=== PATIENT | male | born 1965 | race Caucasian/White ===

== ENCOUNTER 2017-02-11 20:28 | Inpatient (IN) | payer OTHER ==
[~2017-02-11] VITALS: Ht 177.8 cm; Wt 77.8 kg
--- NOTE | ~2017-02-11 | EKG ---
[place], [place] ELECTROCARDIOGRAM REPORT NAME: MUNA BOSCH UNIT #: [id number] ROOM: 410 DOCTOR: TAYLOR CHAVEZ MD BIRTHDATE: [birth year] DOS: 02/11/2017 TIME: 2118 hours. FINDINGS: 1. Normal sinus rhythm at rate 78. 2. Nonspecific T-wave abnormalities in the inferior leads. 3. Otherwise normal EKG. TAYLOR CHAVEZ MD CM:EKGRPT:ELECTROCARDIOGRAM REPORT [id number] TAYLOR CHAVEZ MD
--- NOTE | ~2017-02-11 | EKG ---
[place], [place] ELECTROCARDIOGRAM REPORT NAME: MUNA BOSCH UNIT #: [id number] ROOM: 410 DOCTOR: TAYLOR CHAVEZ MD BIRTHDATE: [birth year] DOS: 02/13/2017 TIME: 08:40. Sinus bradycardia with rate of 52. Low voltage in limb leads, otherwise normal ____. TAYLOR CHAVEZ MD CM:EKGRPT:ELECTROCARDIOGRAM REPORT [id number] TAYLOR CHAVEZ MD
[~2017-02-11 20:28] MED LIST: AMILORIDE HCL5 MG PO; ASPIRIN ADULT L81 M1 PO; ASPIRIN E.C.325 MG PO; ASPIRIN EC325 MG PO; ATIVAN1 MG PO; B-1100 MG PO; CARAFATE1 G1 PO; CARDIZEM30 MG PO; CENA K20 MEQ/15 PO; CETACAINE PO; Clotrimazole Tr10 MG PO; DIGOXIN0.125 MG PO; FLEXERIL10 MG PO; FLUVOXAMINE100 MG PO; FOLIC ACID1 MG PO; HYDROXYZINE HCL25 M1 PO; IRON325 M2 PO; K-Dur 20MEQ20 MEQ PO; KEFLEX500 MG PO; KENALOG0.1% PO; KENALOG0.1% TP; LANOXIN0.125 MG PO; LIQUID MAGNESI400 MG PO; LOPRESSOR100 MG PO; LOPRESSOR25 MG PO; MAG-OX 400400 MG PO; MAGNESIUM OXID400 MG PO; MS CONTIN30 MG PO; MULTIPLE VITAMI1 CAP PO; MYCELEX TROCHE10 MG PO; NATURE'S BLEND F1 MG PO; NKHM; OMEPRAZOLE; OMNICEF300 MG PO; PEPCID AC20 MG PO; PERCOCET 325 MG1 TA6 PO; PERCOCET 325 MG1 TAB PO; PRILOSEC20 MG PO; SERTRALINE HCL100 MG PO; SERTRALINE50 MG PO; SYNTHROID,LEV100 MCG PO; SYNTHROID,LEV112 MCG PO; SYNTHROID,LEV125 MCG PO; SYNTHROID0.025 MG PO; THIAMINE HCL100 MG PO; VALIUM10 MG PO; VICODIN 5/500 505 MG PO; VISTARIL25 MG PO; VISTARIL50 MG PO; VITAMIN B1100 MCG/ML IM; VITAMIN B121000 MC1 PO; VOLTAREN50 M1 PO; XANAX0.25 MG PO; XANAX0.5 MG PO; XANAX1 MG PO; XARE15TA PO; XARE20MG PO; XYLOCAINE PO; ZANTAC 300300 MG PO; ZANTAC150 MG PO; [UNRECOGNIZED DRUG - OTHER] PO
[2017-02-11 20:33] LABS: BASO % 0.7 % (0.0-1.0); EOS # 0.3 10*3/uL (0.0-0.4); EOS % 5.3 % (1.0-4.0); HEMATOCRIT 42.7 % (42.0-52.0); HEMOGLOBIN 15.3 g/dl (14.0-18.0); IG # 0.1 10*3/uL (0.0-0.1); LYMPH # 0.9 10*3/uL (1.3-4.4); LYMPH % 15.4 % (27.0-41.0); MEAN CELL VOLUME 102.2 fl (80.0-94.0); MEAN CORPUSCULAR HGB 36.6 pg (27.0-31.0); MEAN CORPUSCULAR HGB CONC 35.8 g/dl (33.0-37.0); MEAN PLATELET VOLUME 10.5 fl (9.6-12.3); MONO # 0.8 10*3/uL (0.1-1.0); MONO % 12.5 % (3.0-9.0); NEUT % 65.1 % (47.0-73.0); PLATELET COUNT AUTOMATED 202 10*3/uL (130-400); RED BLOOD COUNT 4.18 10*6/uL (4.50-5.90); RED CELL DISTRI WIDTH 12.9 % (0-14.5); WHITE BLOOD COUNT 6.1 10*3/uL (4.8-10.8)
[2017-02-11 20:34] VITALS: BP 128/89
[2017-02-11 20:49] LABS: ALBUMIN 3.6 gm/dl (3.1-4.5); ALKALINE PHOSPHATASE 94 U/L (45-117); BILIRUBIN, TOTAL 0.2 mg/dl (0.2-1.0); BUN 6 mg/dl (7-24); CARBON DIOXIDE 26 mmol/L (21-32); CHLORIDE 107 mmol/L (98-107); EST GLOM FILT AFRICAN AMERICAN > 60 ml/min; GLUCOSE 116 mg/dL (65-99); SGOT/AST 33 IU/L (3-35); SGPT/ALT 29 U/L (12-78); SODIUM 141 mmol/L (136-145); TOTAL PROTEIN 7.9 gm/dL (6.4-8.2)
[2017-02-11 21:16] LABS: BASO # 0.1 10*3/uL (0.0-0.1); BASO % 0.8 % (0.0-1.0); EOS # 0.4 10*3/uL (0.0-0.4); EOS % 5.4 % (1.0-4.0); HEMATOCRIT 42.7 % (42.0-52.0); HEMOGLOBIN 15.4 g/dl (14.0-18.0); IG # 0.1 10*3/uL (0.0-0.1); LYMPH # 0.8 10*3/uL (1.3-4.4); LYMPH % 12.2 % (27.0-41.0); MEAN CELL VOLUME 101.7 fl (80.0-94.0); MEAN CORPUSCULAR HGB 36.7 pg (27.0-31.0); MEAN CORPUSCULAR HGB CONC 36.1 g/dl (33.0-37.0); MEAN PLATELET VOLUME 10.4 fl (9.6-12.3); MONO # 0.9 10*3/uL (0.1-1.0); MONO % 14.5 % (3.0-9.0); NEUT # 4.3 10*3/uL (2.3-7.9); PLATELET COUNT AUTOMATED 197 10*3/uL (130-400); WHITE BLOOD COUNT 6.5 10*3/uL (4.8-10.8)
[2017-02-11 21:24] LABS: PROTHROMBIN TIME 10.9 SECONDS (9.0-12.4)
[2017-02-11 21:31] LABS: ALBUMIN 3.7 gm/dl (3.1-4.5); ALKALINE PHOSPHATASE 100 U/L (45-117); BILIRUBIN, TOTAL 0.2 mg/dl (0.2-1.0); BUN 6 mg/dl (7-24); C-REACTIVE PROTEIN 0.45 MG/DL (0-0.3); CARBON DIOXIDE 24 mmol/L (21-32); CHLORIDE 108 mmol/L (98-107); EST GLOM FILT AFRICAN AMERICAN > 60 ml/min; GLUCOSE 89 mg/dL (65-99); MAGNESIUM 1.5 mg/dL (1.5-2.1); POTASSIUM 3.1 mmol/L (3.5-5.1); SGOT/AST 35 IU/L (3-35); SGPT/ALT 29 U/L (12-78); SODIUM 141 mmol/L (136-145)
[2017-02-11 21:34] LABS: TROPONIN I < 0.015 ng/ml (<0.045)
[2017-02-11 22:44] VITALS: BP 122/70
[2017-02-11 22:45] VITALS: BP 122/70
[2017-02-12] VITALS: BP 96/63
[2017-02-12 04:00] VITALS: BP 128/86
[2017-02-12 06:26] LABS: CKMB 1.7 ng/ml (0.5-3.6); CPK 123 U/L (39-308); TROPONIN I < 0.015 ng/ml (<0.045)
[2017-02-12 06:40] LABS: FREE T4 0.48 ng/dl (0.76-1.46)
[2017-02-12 06:49] LABS: THYROID STIM HORMONE (HS) 32.1 uIU/ml (0.358-4.75)
[2017-02-12 06:52] LABS: PROTHROMBIN TIME 10.9 SECONDS (9.0-12.4)
[2017-02-12 07:00] LABS: HEMOGLOBIN A1c 4.9 % (4.8-5.6)
[2017-02-12 08:00] VITALS: BP 134/79
[2017-02-12 09:39] LABS: BILIRUBIN NEGATIVE (NEGATIVE); BLOOD NEGATIVE (NEGATIVE); CLARITY CLEAR (CLEAR); COLOR YELLOW (YELLOW); GLUCOSE NEGATIVE (NEGATIVE); KETONE NEGATIVE (NEGATIVE); LEUKO ESTERASE NEGATIVE (NEGATIVE); NITRITE NEGATIVE (NEGATIVE); PROTEIN NEGATIVE (NEGATIVE); SPECIFIC GRAVITY 1.015 (1.005-1.030); UROBILINOGEN 0.2 E.U./dl (0.2-1.0)
[2017-02-12 09:51] LABS: WBC 0-2 wbc/hpf (0-5)
[2017-02-12 09:52] LABS: EPITHELIAL CELLS 0-2; URINE REFLEX COMMENT NO (NO)
[2017-02-12 12:00] VITALS: BP 120/72
[2017-02-12 12:27] LABS: CKMB 1.7 ng/ml (0.5-3.6); CPK 110 U/L (39-308)
[2017-02-12 12:28] LABS: TROPONIN I < 0.015 ng/ml (<0.045)
[2017-02-12 16:00] VITALS: BP 136/79
[2017-02-12 18:33] LABS: CKMB 1.5 ng/ml (0.5-3.6); CPK 99 U/L (39-308)
[2017-02-12 18:38] LABS: TROPONIN I < 0.015 ng/ml (<0.045)
[2017-02-12 20:00] VITALS: BP 114/86; BP 135/80
[2017-02-13] VITALS: BP 134/78
[2017-02-13 04:00] VITALS: BP 135/78
[2017-02-13 05:50] LABS: BASO # 0.1 10*3/uL (0.0-0.1); BASO % 1.3 % (0.0-1.0); EOS # 0.2 10*3/uL (0.0-0.4); EOS % 5.8 % (1.0-4.0); LYMPH # 0.5 10*3/uL (1.3-4.4); LYMPH % 12.3 % (27.0-41.0); MEAN CELL VOLUME 103.8 fl (80.0-94.0); MEAN CORPUSCULAR HGB 36.8 pg (27.0-31.0); MEAN CORPUSCULAR HGB CONC 35.4 g/dl (33.0-37.0); MEAN PLATELET VOLUME 10.7 fl (9.6-12.3); MONO # 0.7 10*3/uL (0.1-1.0); MONO % 16.3 % (3.0-9.0); NEUT # 2.5 10*3/uL (2.3-7.9); NEUT % 63.5 % (47.0-73.0); PLATELET COUNT AUTOMATED 149 10*3/uL (130-400); RED CELL DISTRI WIDTH 13.2 % (0-14.5)
[2017-02-13 05:55] LABS: HEMATOCRIT 35.3 % (42.0-52.0); HEMOGLOBIN 12.5 g/dl (14.0-18.0)
[2017-02-13 06:15] LABS: ALBUMIN 2.6 gm/dl (3.1-4.5); ALKALINE PHOSPHATASE 68 U/L (45-117); BILIRUBIN, TOTAL 0.3 mg/dl (0.2-1.0); BUN 10 mg/dl (7-24); CARBON DIOXIDE 23 mmol/L (21-32); CHLORIDE 111 mmol/L (98-107); CHOLESTEROL 119 mg/dL (<200); EST GLOM FILT AFRICAN AMERICAN > 60 ml/min; FREE T4 0.58 ng/dl (0.76-1.46); GLUCOSE 87 mg/dL (65-99); HDL CHOLESTEROL 80 mg/dl (40-60); LDL CHOLESTEROL 34 mg/dL (9-159); MAGNESIUM 1.1 mg/dL (1.5-2.1); PHOSPHOROUS 2.4 mg/dL (2.5-4.9); POTASSIUM 3.1 mmol/L (3.5-5.1); SGOT/AST 20 IU/L (3-35); SGPT/ALT 16 U/L (12-78); SODIUM 144 mmol/L (136-145); TRIGLYCERIDES 27 mg/dl (<150); VLDL CHOLESTEROL 5 mg/dL (6-40)
[2017-02-13 07:16] LABS: FOLIC ACID 2.52 ng/mL (>5.38); VITAMIN D, 25-HYDROXY 53.3 ng/mL (30-100)
[2017-02-13 08:00] VITALS: BP 152/87
[2017-02-13 12:00] VITALS: BP 143/86
[2017-02-13 16:00] VITALS: BP 121/77
[2017-02-13 20:00] VITALS: BP 150/89
[2017-02-14 06:10] LABS: BUN 10 mg/dl (7-24); CARBON DIOXIDE 24 mmol/L (21-32); CHLORIDE 110 mmol/L (98-107); EST GLOM FILT AFRICAN AMERICAN > 60 ml/min; GLUCOSE 113 mg/dL (65-99); MAGNESIUM 1.1 mg/dL (1.5-2.1); PHOSPHOROUS 2.9 mg/dL (2.5-4.9); POTASSIUM 3.5 mmol/L (3.5-5.1); SODIUM 141 mmol/L (136-145)
[2017-02-14 06:49] LABS: BASO % 0.7 % (0.0-1.0); EOS # 0.2 10*3/uL (0.0-0.4); EOS % 5.3 % (1.0-4.0); HEMOGLOBIN 12.4 g/dl (14.0-18.0); LYMPH # 0.6 10*3/uL (1.3-4.4); LYMPH % 13.5 % (27.0-41.0); MEAN CELL VOLUME 103.6 fl (80.0-94.0); MEAN CORPUSCULAR HGB 36.7 pg (27.0-31.0); MEAN CORPUSCULAR HGB CONC 35.4 g/dl (33.0-37.0); MEAN PLATELET VOLUME 11.2 fl (9.6-12.3); MONO # 0.6 10*3/uL (0.1-1.0); MONO % 14.2 % (3.0-9.0); NEUT # 2.9 10*3/uL (2.3-7.9); NEUT % 65.6 % (47.0-73.0); PLATELET COUNT AUTOMATED 147 10*3/uL (130-400); RED BLOOD COUNT 3.38 10*6/uL (4.50-5.90); RED CELL DISTRI WIDTH 13.3 % (0-14.5); WHITE BLOOD COUNT 4.4 10*3/uL (4.8-10.8)
[2017-02-14 08:00] VITALS: BP 167/96
[2017-02-14] MEDS ORDERED: LIBRIUM5 MG PO (09:51)
[2017-02-14] MEDS ORDERED: METRONIDAZOLE500 M1 PO (09:51)
== END 2017-02-14 10:58 | disposition home or self-care (01) | DRG 371 ==
LOC: EDSTATUS 20:28 → ED 20:29 → 4E 22:21 → EDHOLD 22:21 → 4E 22:32
PROVIDERS: Emergency Medicine Emergency Medical Services; Family Medicine; Internal Medicine; Student in an Organized Health Care Education/Training Program
DX: A04.9 Bacterial intestinal infection, unspecified (principal); E43 Unspecified severe protein-calorie malnutrition; K76.0 Fatty (change of) liver, not elsewhere classified; I48.91 Unspecified atrial fibrillation; E83.39 Other disorders of phosphorus metabolism; R55 Syncope and collapse; I10 Essential (primary) hypertension; F10.129 Alcohol abuse with intoxication, unspecified; E03.9 Hypothyroidism, unspecified; E87.6 Hypokalemia; D72.810 Lymphocytopenia; F17.200 Nicotine dependence, unspecified, uncomplicated; E86.0 Dehydration; D53.9 Nutritional anemia, unspecified; K52.9 Noninfective gastroenteritis and colitis, unspecified; Z84.89 Family history of other specified conditions; Z79.899 Other long term (current) drug therapy; Z68.24 Body mass index [BMI] 24.0-24.9, adult

== ENCOUNTER → 2017-06-20 | Outpatient (CLI) | payer OTHER ==
[~2017-06-20] MED LIST changes: +LIBRIUM5 MG PO; +METRONIDAZOLE500 M1 PO
[2017-06-20 08:10] LABS: HEMATOCRIT 44.5 % (42.0-52.0); HEMOGLOBIN 15.6 g/dl (14.0-18.0); MEAN CELL VOLUME 109.6 fl (80.0-94.0); MEAN CORPUSCULAR HGB 38.4 pg (27.0-31.0); MEAN CORPUSCULAR HGB CONC 35.1 g/dl (33.0-37.0); MEAN PLATELET VOLUME 10.7 fl (9.6-12.3); PLATELET COUNT AUTOMATED 197 10*3/uL (130-400); RED BLOOD COUNT 4.06 10*6/uL (4.50-5.90); RED CELL DISTRI WIDTH 14.4 % (0-14.5); WHITE BLOOD COUNT 4.7 10*3/uL (4.8-10.8)
[2017-06-20 08:41] LABS: ALBUMIN 3.8 gm/dl (3.1-4.5); ALKALINE PHOSPHATASE 81 U/L (45-117); BUN 10 mg/dl (7-24); CHLORIDE 103 mmol/L (98-107); CHOLESTEROL 188 mg/dL (<200); GAMMA GLUTAMYL TRANSPEPTIDASE 33 U/L (15-85); HDL CHOLESTEROL 88 mg/dl (40-60); LDL CHOLESTEROL 85 mg/dL (9-159); MAGNESIUM 1.4 mg/dL (1.5-2.1); POTASSIUM 3.8 mmol/L (3.5-5.1); SGOT/AST 19 IU/L (3-35); SGPT/ALT 20 U/L (12-78); SODIUM 139 mmol/L (136-145); TOTAL PROTEIN 8.4 gm/dL (6.4-8.2); TRIGLYCERIDES 74 mg/dl (<150); VLDL CHOLESTEROL 15 mg/dL (6-40)
[2017-06-20 08:59] LABS: PLATELET SUFFICIENCY NORMAL (NORMAL); TOTAL CELLS COUNTED 100 #CELLS
== END | disposition home or self-care (01) ==
LOC: LAB 07:45
PROVIDERS: Family Medicine
DX: Z12.5 Encounter for screening for malignant neoplasm of prostate (principal); E03.9 Hypothyroidism, unspecified; F10.99 Alcohol use, unspecified with unspecified alcohol-induced disorder; Z72.0 Tobacco use; Z85.49 Personal history of malignant neoplasm of other male genital organs

== ENCOUNTER → 2017-09-21 | Outpatient (CLI) | payer OTHER | END | disposition home or self-care (01) | LOC: LAB 13:09 | DX: E03.9 Hypothyroidism, unspecified (principal) ==

== ENCOUNTER → 2017-11-21 | Outpatient (CLI) | payer OTHER | END | disposition home or self-care (01) | LOC: LAB 11:39 | DX: E03.9 Hypothyroidism, unspecified (principal) ==

== ENCOUNTER 2017-12-30 00:15 | Inpatient (IN) | payer OTHER ==
[2017-12-30] VITALS (7 sets, daily range): BP systolic 107–156; BP diastolic 51–89
[~2017-12-30] VITALS: Ht 176.5 cm; Wt 77.6 kg
[2017-12-30 00:38] LABS: BASO # 0.1 10*3/uL (0.0-0.1); BASO % 1.1 % (0.0-1.0); EOS # 0.3 10*3/uL (0.0-0.4); EOS % 7.3 % (1.0-4.0); HEMATOCRIT 37.3 % (42.0-52.0); HEMOGLOBIN 13.1 g/dl (14.0-18.0); LYMPH # 1.4 10*3/uL (1.3-4.4); LYMPH % 30.5 % (27.0-41.0); MEAN CELL VOLUME 104.2 fl (80.0-94.0); MEAN CORPUSCULAR HGB 36.6 pg (27.0-31.0); MEAN CORPUSCULAR HGB CONC 35.1 g/dl (33.0-37.0); MEAN PLATELET VOLUME 9.9 fl (9.6-12.3); MONO # 0.7 10*3/uL (0.1-1.0); MONO % 15.8 % (3.0-9.0); NEUT % 44.6 % (47.0-73.0); PLATELET COUNT AUTOMATED 180 10*3/uL (130-400); RED BLOOD COUNT 3.58 10*6/uL (4.50-5.90); RED CELL DISTRI WIDTH 13.3 % (0-14.5); WHITE BLOOD COUNT 4.5 10*3/uL (4.8-10.8)
[2017-12-30 00:53] LABS: ACT PARTIAL THROMBO TIME 26.5 SECONDS (20.8-31.5); INTERNATIONAL NORM RATIO 0.9 (2.0-3.5)
[2017-12-30 01:02] LABS: ALBUMIN 3.8 gm/dl (3.1-4.5); ALKALINE PHOSPHATASE 74 U/L (45-117); CHLORIDE 104 mmol/L (98-107); CREATININE 1.01 mg/dL (0.70-1.30); POTASSIUM 4.8 mmol/L (3.5-5.1); SGPT/ALT 21 U/L (12-78); SODIUM 140 mmol/L (136-145); TOTAL PROTEIN 7.8 gm/dL (6.4-8.2)
[2017-12-30 01:24] LABS: BUN 11 mg/dl (7-24); SGOT/AST 29 IU/L (3-35); TROPONIN I < 0.015 ng/ml (<0.045)
[2017-12-30 01:25] LABS: URINE AMPHETAMINES < 1000 (1000ng/ml); URINE BARBITURATES < 200 (200ng/ml); URINE BENZODIAZEPINES < 200 (200ng/ml); URINE CANNABINOIDS (THC) < 50 (50ng/ml); URINE COCAINE < 300 (300ng/ml); URINE METHADONE < 300 (300ng/ml); URINE OPIATES < 300 (300ng/ml)
[2017-12-30 01:28] LABS: URINE PHENCYCLIDINE < 25 (25ng/ml)
[2017-12-30 01:30] LABS: BILIRUBIN NEGATIVE (NEGATIVE); BLOOD NEGATIVE (NEGATIVE); CLARITY CLEAR (CLEAR); COLOR YELLOW (YELLOW); GLUCOSE NEGATIVE (NEGATIVE); KETONE NEGATIVE (NEGATIVE); LEUKO ESTERASE NEGATIVE (NEGATIVE); NITRITE NEGATIVE (NEGATIVE); UROBILINOGEN 0.2 E.U./dl (0.2-1.0)
[2017-12-30 01:35] LABS: WBC 0-2 wbc/hpf (0-5)
[2017-12-30] MEDS ORDERED: LEVOTHYROXINE200 MC2 PO (01:46)
[2017-12-30 06:10] LABS: EOS # 0.2 10*3/uL (0.0-0.4); HEMATOCRIT 34.3 % (42.0-52.0); HEMOGLOBIN 12.3 g/dl (14.0-18.0); LYMPH # 0.9 10*3/uL (1.3-4.4); LYMPH % 30.3 % (27.0-41.0); MEAN CELL VOLUME 103.9 fl (80.0-94.0); MEAN CORPUSCULAR HGB 37.3 pg (27.0-31.0); MEAN CORPUSCULAR HGB CONC 35.9 g/dl (33.0-37.0); MEAN PLATELET VOLUME 9.6 fl (9.6-12.3); MONO # 0.4 10*3/uL (0.1-1.0); MONO % 12.3 % (3.0-9.0); NEUT # 1.4 10*3/uL (2.3-7.9); NEUT % 47.7 % (47.0-73.0); PLATELET COUNT AUTOMATED 144 10*3/uL (130-400); RED CELL DISTRI WIDTH 13.3 % (0-14.5)
[2017-12-30 06:42] LABS: ACT PARTIAL THROMBO TIME 26.9 SECONDS (20.8-31.5); ALBUMIN 3.2 gm/dl (3.1-4.5); ALKALINE PHOSPHATASE 62 U/L (45-117); BUN 11 mg/dl (7-24); CHLORIDE 107 mmol/L (98-107); CHOLESTEROL 150 mg/dL (<200); CREATININE 0.99 mg/dL (0.70-1.30); FREE T4 0.84 ng/dl (0.76-1.46); HDL CHOLESTEROL 88 mg/dl (40-60); LDL CHOLESTEROL 54 mg/dL (9-159); PHOSPHOROUS 3.9 mg/dL (2.5-4.9); SGOT/AST 24 IU/L (3-35); SGPT/ALT 18 U/L (12-78); SODIUM 143 mmol/L (136-145); TOTAL PROTEIN 6.8 gm/dL (6.4-8.2); TRIGLYCERIDES 41 mg/dl (<150); VLDL CHOLESTEROL 8 mg/dL (6-40)
[2017-12-30 06:56] LABS: POTASSIUM 3.8 mmol/L (3.5-5.1)
[2017-12-30 06:57] LABS: THYROID STIM HORMONE (HS) 0.667 uIU/ml (0.358-4.75)
[2017-12-30 07:55] LABS: VITAMIN D, 25-HYDROXY 23.7 ng/mL (30-100)
[2017-12-30] MEDS ORDERED: LEXAPRO20 MG PO (10:23)
[2017-12-30] MEDS ORDERED: BUSPAR5 MG PO (10:25)
[2017-12-31] VITALS: BP 168/80
[2017-12-31 04:00] VITALS: BP 158/66
[2017-12-31 06:23] LABS: BASO % 0.1 % (0.0-1.0); LYMPH # 0.3 10*3/uL (1.3-4.4); LYMPH % 4.4 % (27.0-41.0); MEAN CELL VOLUME 101.2 fl (80.0-94.0); MEAN CORPUSCULAR HGB 36.6 pg (27.0-31.0); MEAN CORPUSCULAR HGB CONC 36.2 g/dl (33.0-37.0); MEAN PLATELET VOLUME 11.1 fl (9.6-12.3); MONO # 0.4 10*3/uL (0.1-1.0); MONO % 5.2 % (3.0-9.0); NEUT # 6.8 10*3/uL (2.3-7.9); NEUT % 89.6 % (47.0-73.0); PLATELET COUNT AUTOMATED 165 10*3/uL (130-400); RED BLOOD COUNT 4.32 10*6/uL (4.50-5.90); WHITE BLOOD COUNT 7.6 10*3/uL (4.8-10.8)
[2017-12-31 06:26] LABS: HEMATOCRIT 43.7 % (42.0-52.0)
[2017-12-31 06:27] LABS: HEMOGLOBIN 15.8 g/dl (14.0-18.0)
[2017-12-31 08:00] VITALS: BP 152/82
[2017-12-31 12:00] VITALS: BP 134/84
[2017-12-31 16:00] VITALS: BP 117/81
[2017-12-31] MEDS ORDERED: PREDNISONE10 MG PO (17:05)
[2017-12-31] MEDS ORDERED: LEVAQUIN500 M2 PO (17:05)
[2017-12-31] MEDS ORDERED: NATURE'S BLEND F1 MG PO (17:05)
[2017-12-31] MEDS ORDERED: VITAMIN D-32000 UNIT PO (17:05)
== END 2017-12-31 17:24 | disposition home or self-care (01) | DRG 190 ==
LOC: ED 00:15 → EDHOLD 01:38 → 5E 01:38
PROVIDERS: Emergency Medicine Emergency Medical Services; Family Medicine
PROC: 4A02XM4 Measurement of Cardiac Total Activity, External Approach (ICD-10-PCS; principal; 2017-12-31)
PROC: 3E073KZ Introduction of Other Diagnostic Substance into Coronary Artery, Percutaneous Approach (ICD-10-PCS; 2017-12-31)
DX: J44.1 Chronic obstructive pulmonary disease with (acute) exacerbation (principal); J18.9 Pneumonia, unspecified organism; C14.0 Malignant neoplasm of pharynx, unspecified; I48.0 Paroxysmal atrial fibrillation; E44.1 Mild protein-calorie malnutrition; K76.0 Fatty (change of) liver, not elsewhere classified; D72.810 Lymphocytopenia; D53.9 Nutritional anemia, unspecified; E03.9 Hypothyroidism, unspecified; F17.210 Nicotine dependence, cigarettes, uncomplicated; R07.89 Other chest pain; I25.118 Atherosclerotic heart disease of native coronary artery with other forms of angina pectoris; E53.8 Deficiency of other specified B group vitamins; E55.9 Vitamin D deficiency, unspecified; F32.9 Major depressive disorder, single episode, unspecified; I10 Essential (primary) hypertension; Z83.3 Family history of diabetes mellitus; Z82.49 Family history of ischemic heart disease and other diseases of the circulatory system; Z71.6 Tobacco abuse counseling; Z87.81 Personal history of (healed) traumatic fracture; Z68.24 Body mass index [BMI] 24.0-24.9, adult; J44.0 Chronic obstructive pulmonary disease with (acute) lower respiratory infection; F10.129 Alcohol abuse with intoxication, unspecified

== ENCOUNTER 2018-01-25 21:46 | Inpatient (IN) | payer OTHER ==
[~2018-01-25] VITALS: Ht 177.8 cm; Wt 79.1 kg
[~2018-01-25 21:46] MED LIST changes: +BUSPAR5 MG PO; +LEVAQUIN500 M2 PO; +LEVOTHYROXINE200 MC2 PO; +LEXAPRO20 MG PO; +PREDNISONE10 MG PO; +VITAMIN D-32000 UNIT PO
[2018-01-25 21:50] VITALS: BP 160/110
[2018-01-25 22:19] LABS: BASO # 0.1 10*3/uL (0.0-0.1); BASO % 0.8 % (0.0-1.0); EOS # 0.2 10*3/uL (0.0-0.4); EOS % 3.7 % (1.0-4.0); HEMATOCRIT 40.8 % (42.0-52.0); LYMPH % 15.6 % (27.0-41.0); MEAN CELL VOLUME 106.5 fl (80.0-94.0); MEAN CORPUSCULAR HGB 36.6 pg (27.0-31.0); MEAN CORPUSCULAR HGB CONC 34.3 g/dl (33.0-37.0); MEAN PLATELET VOLUME 10.4 fl (9.6-12.3); MONO # 0.5 10*3/uL (0.1-1.0); NEUT # 4.4 10*3/uL (2.3-7.9); NEUT % 71.3 % (47.0-73.0); PLATELET COUNT AUTOMATED 141 10*3/uL (130-400); RED BLOOD COUNT 3.83 10*6/uL (4.50-5.90); RED CELL DISTRI WIDTH 14.5 % (0-14.5); WHITE BLOOD COUNT 6.2 10*3/uL (4.8-10.8)
[2018-01-25 22:33] LABS: ALBUMIN 4.2 gm/dl (3.1-4.5); ALKALINE PHOSPHATASE 65 U/L (45-117); BUN 5 mg/dl (7-24); CHLORIDE 98 mmol/L (98-107); CREATININE 0.84 mg/dL (0.70-1.30); SGOT/AST 51 IU/L (3-35); SGPT/ALT 35 U/L (12-78); SODIUM 134 mmol/L (136-145); TOTAL PROTEIN 7.9 gm/dL (6.4-8.2)
[2018-01-25 22:34] LABS: BILIRUBIN NEGATIVE (NEGATIVE); BLOOD NEGATIVE (NEGATIVE); CLARITY CLEAR (CLEAR); COLOR YELLOW (YELLOW); GLUCOSE NEGATIVE (NEGATIVE); KETONE NEGATIVE (NEGATIVE); LEUKO ESTERASE NEGATIVE (NEGATIVE); NITRITE NEGATIVE (NEGATIVE); SPECIFIC GRAVITY <= 1.005 (1.005-1.030); UROBILINOGEN 0.2 E.U./dl (0.2-1.0)
[2018-01-25 22:35] LABS: ACETAMINOPHEN (TYLENOL) < 2.0 ug/ml (10-30)
[2018-01-25 22:44] LABS: URINE AMPHETAMINES < 1000 (1000ng/ml); URINE BARBITURATES < 200 (200ng/ml); URINE BENZODIAZEPINES < 200 (200ng/ml); URINE CANNABINOIDS (THC) < 50 (50ng/ml); URINE COCAINE < 300 (300ng/ml); URINE METHADONE < 300 (300ng/ml); URINE OPIATES < 300 (300ng/ml); URINE PHENCYCLIDINE < 25 (25ng/ml)
[2018-01-25 23:00] LABS: BACTERIA TRACE; WBC 0-2 wbc/hpf (0-5)
[2018-01-25 23:29] VITALS: BP 118/62
[2018-01-26] VITALS (7 sets, daily range): BP systolic 105–148; BP diastolic 69–89
[2018-01-26 04:32] LABS: BASO % 0.7 % (0.0-1.0); EOS # 0.2 10*3/uL (0.0-0.4); EOS % 5.4 % (1.0-4.0); HEMATOCRIT 35.7 % (42.0-52.0); HEMOGLOBIN 12.2 g/dl (14.0-18.0); LYMPH # 0.9 10*3/uL (1.3-4.4); MEAN CELL VOLUME 106.9 fl (80.0-94.0); MEAN CORPUSCULAR HGB 36.5 pg (27.0-31.0); MEAN CORPUSCULAR HGB CONC 34.2 g/dl (33.0-37.0); MEAN PLATELET VOLUME 10.5 fl (9.6-12.3); MONO # 0.5 10*3/uL (0.1-1.0); MONO % 12.1 % (3.0-9.0); NEUT # 2.5 10*3/uL (2.3-7.9); NEUT % 59.3 % (47.0-73.0); PLATELET COUNT AUTOMATED 118 10*3/uL (130-400); RED BLOOD COUNT 3.34 10*6/uL (4.50-5.90); RED CELL DISTRI WIDTH 14.4 % (0-14.5); WHITE BLOOD COUNT 4.3 10*3/uL (4.8-10.8)
[2018-01-26 04:33] LABS: ACT PARTIAL THROMBO TIME 26.9 SECONDS (20.8-31.5)
[2018-01-26 04:42] LABS: ALBUMIN 3.2 gm/dl (3.1-4.5); ALKALINE PHOSPHATASE 49 U/L (45-117); BUN 9 mg/dl (7-24); CHLORIDE 103 mmol/L (98-107); CREATININE 1.03 mg/dL (0.70-1.30); PHOSPHOROUS 3.8 mg/dL (2.5-4.9); POTASSIUM 3.6 mmol/L (3.5-5.1); SGOT/AST 35 IU/L (3-35); SGPT/ALT 25 U/L (12-78); SODIUM 140 mmol/L (136-145); TOTAL PROTEIN 6.1 gm/dL (6.4-8.2)
[2018-01-26 05:38] LABS: VITAMIN D, 25-HYDROXY 33.9 ng/mL (30-100)
[2018-01-27] VITALS: BP 138/80
[2018-01-27 04:55] LABS: HEMATOCRIT 38.8 % (42.0-52.0); MEAN CELL VOLUME 109.3 fl (80.0-94.0); MEAN CORPUSCULAR HGB 36.6 pg (27.0-31.0); MEAN CORPUSCULAR HGB CONC 33.5 g/dl (33.0-37.0); MEAN PLATELET VOLUME 10.8 fl (9.6-12.3); PLATELET COUNT AUTOMATED 99 10*3/uL (130-400); RED BLOOD COUNT 3.55 10*6/uL (4.50-5.90); RED CELL DISTRI WIDTH 14.5 % (0-14.5); WHITE BLOOD COUNT 4.8 10*3/uL (4.8-10.8)
[2018-01-27 05:13] LABS: ALBUMIN 3.1 gm/dl (3.1-4.5); ALKALINE PHOSPHATASE 52 U/L (45-117); BUN 14 mg/dl (7-24); CHLORIDE 103 mmol/L (98-107); CREATININE 0.96 mg/dL (0.70-1.30); POTASSIUM 3.9 mmol/L (3.5-5.1); SGOT/AST 27 IU/L (3-35); SGPT/ALT 24 U/L (12-78); SODIUM 140 mmol/L (136-145); TOTAL PROTEIN 6.3 gm/dL (6.4-8.2)
[2018-01-27 05:21] LABS: BASOPHILS 1 % (0-1); PLATELET SUFFICIENCY LOW (NORMAL); TOTAL CELLS COUNTED 100 #CELLS
[2018-01-27 08:00] VITALS: BP 170/86
[2018-01-27 08:28] LABS: FREE T4 0.87 ng/dl (0.76-1.46); THYROID STIM HORMONE (HS) 10.3 uIU/ml (0.358-4.75)
[2018-01-27] MEDS ORDERED: NATURE'S BLEND100 M2 PO (10:47)
== END 2018-01-27 10:58 | disposition home or self-care (01) | DRG 897 ==
LOC: ED 21:46 → EDHOLD 23:44 → ICCU 23:51
PROVIDERS: Emergency Medicine Emergency Medical Services; Internal Medicine
DX: F10.129 Alcohol abuse with intoxication, unspecified (principal); D69.6 Thrombocytopenia, unspecified; K76.0 Fatty (change of) liver, not elsewhere classified; E87.1 Hypo-osmolality and hyponatremia; I48.91 Unspecified atrial fibrillation; J43.9 Emphysema, unspecified; M16.12 Unilateral primary osteoarthritis, left hip; F41.9 Anxiety disorder, unspecified; I25.10 Atherosclerotic heart disease of native coronary artery without angina pectoris; F32.9 Major depressive disorder, single episode, unspecified; I10 Essential (primary) hypertension; Y90.8 Blood alcohol level of 240 mg/100 ml or more; R74.0 Nonspecific elevation of levels of transaminase and lactic acid dehydrogenase [LDH]; W19.XXXA Unspecified fall, initial encounter; R29.898 Other symptoms and signs involving the musculoskeletal system; E55.9 Vitamin D deficiency, unspecified; E53.8 Deficiency of other specified B group vitamins; D53.9 Nutritional anemia, unspecified; M19.042 Primary osteoarthritis, left hand; M85.80 Other specified disorders of bone density and structure, unspecified site; F12.90 Cannabis use, unspecified, uncomplicated; E03.9 Hypothyroidism, unspecified; Z85.89 Personal history of malignant neoplasm of other organs and systems; Z72.0 Tobacco use; Z84.89 Family history of other specified conditions; Z79.899 Other long term (current) drug therapy; Z71.6 Tobacco abuse counseling; Y93.89 Activity, other specified; Y92.89 Other specified places as the place of occurrence of the external cause; Y99.8 Other external cause status; Z86.73 Personal history of transient ischemic attack (TIA), and cerebral infarction without residual deficits; Z87.01 Personal history of pneumonia (recurrent); Z83.3 Family history of diabetes mellitus; Z82.49 Family history of ischemic heart disease and other diseases of the circulatory system

== ENCOUNTER → 2018-02-18 | Outpatient (CLI) | payer OTHER ==
[~2018-02-18] MED LIST changes: +NATURE'S BLEND100 M2 PO
[2018-02-18 10:32] LABS: HEMATOCRIT 40.9 % (42.0-52.0); HEMOGLOBIN 14.2 g/dl (14.0-18.0); MEAN CELL VOLUME 106.5 fl (80.0-94.0); MEAN CORPUSCULAR HGB CONC 34.7 g/dl (33.0-37.0); RED BLOOD COUNT 3.84 10*6/uL (4.50-5.90); RED CELL DISTRI WIDTH 13.2 % (0-14.5); WHITE BLOOD COUNT 5.2 10*3/uL (4.8-10.8)
[2018-02-18 10:58] LABS: ALBUMIN 3.4 gm/dl (3.1-4.5); ALKALINE PHOSPHATASE 71 U/L (45-117); BUN 6 mg/dl (7-24); CHLORIDE 105 mmol/L (98-107); CHOLESTEROL 121 mg/dL (<200); CREATININE 0.75 mg/dL (0.70-1.30); HDL CHOLESTEROL 79 mg/dl (40-60); LDL CHOLESTEROL 32 mg/dL (9-159); POTASSIUM 3.9 mmol/L (3.5-5.1); SGOT/AST 31 IU/L (3-35); SGPT/ALT 30 U/L (12-78); SODIUM 135 mmol/L (136-145); TOTAL PROTEIN 7.3 gm/dL (6.4-8.2); TRIGLYCERIDES 49 mg/dl (<150); VLDL CHOLESTEROL 10 mg/dL (6-40)
[2018-02-18 11:05] LABS: THYROID STIM HORMONE (HS) 0.749 uIU/ml (0.358-4.75)
[2018-02-19 08:10] LABS: HEPATITIS B SURFACE AG Negative (Negative); HEPATITIS C VIRUS ANTIBODY <0.1 s/co (0.0-0.9); HIV 1+2 AB + HIV1 P24 AG Non Reactive (Non Reactive)
== END | disposition home or self-care (01) ==
LOC: LAB 10:06
PROVIDERS: Registered Nurse Flight
DX: F32.9 Major depressive disorder, single episode, unspecified (principal); E78.00 Pure hypercholesterolemia, unspecified; E03.9 Hypothyroidism, unspecified; E55.9 Vitamin D deficiency, unspecified; Z72.51 High risk heterosexual behavior

== ENCOUNTER → 2018-03-14 | Outpatient (CLI) | payer OTHER | END | disposition home or self-care (01) | LOC: CT 10:40 | DX: S09.90XA Unspecified injury of head, initial encounter (principal); W19.XXXA Unspecified fall, initial encounter; X58.XXXA Exposure to other specified factors, initial encounter; Y93.89 Activity, other specified; Y92.89 Other specified places as the place of occurrence of the external cause; Y99.8 Other external cause status ==

== ENCOUNTER 2018-04-09 17:15 | Inpatient (IN) | payer OTHER ==
[~2018-04-09] VITALS: Ht 177.8 cm
--- NOTE | ~2018-04-09 | CON ---
[place], [place] REPORT OF CONSULTATION NAME: MUNA BOSCH UNIT #: [id number] ROOM: [facility] DOCTOR: ZCAH MADRID MD BIRTHDATE: [birth year] DOS: 04/11/2018 HISTORY OF PRESENT ILLNESS: This is a 52-year-old -[place] man with a history of chronic alcoholism and drinks quite heavy. He has chronic atrial fibrillation and has had that for many years. About 2-1/2 years ago, he tells that he was electrically cardioverted. He has not had heart failure, but does have coronary artery disease, COPD and fatty liver, essential hypertension, hypothyroidism, osteopenia, osteoarthritis and depression. He has had colonoscopy in the past and had thyroidectomy and tongue biopsy. He had been upset with his family members and got mad and took quite a few/handful of BuSpar tablets and tells me he did that because he wanted to kill himself. He does not have any palpitations, chest pain, breathing difficulty, swelling of the lower extremities and orthopnea. He has not had any loss of consciousness. He drinks about 8 beers a day, sometimes even up to 30 beers a day and also drinks black velvet, which is a whiskey. He also smokes cigars. He is on metoprolol and digoxin for atrial fibrillation, but he had run out of these pills a couple of days ago. HOME MEDICATIONS: Include BuSpar 10 mg once a day, digoxin 125 mcg daily, metoprolol 25 b.i.d., levothyroxine 200 mcg daily, hydroxyzine 25 mg q. 8h for anxiety, gabapentin 300 mg b.i.d., ranitidine 150 mg b.i.d. and Xarelto 20 mg daily, Carafate 1 gram b.i.d. and vitamin B12 1000 mcg daily. PHYSICAL EXAMINATION: GENERAL: This reveals a patient who is alert, oriented. He is very comfortable in bed. He is not anemic. There is no jaundice or cyanosis, thyromegaly or finger clubbing. VITAL SIGNS: Pulse is irregular at 116 beats per minute. JVP is normal. AJR is negative. Blood pressure 113/80. CARDIOVASCULAR: Cardiac auscultation reveals no murmurs or rubs. Heart rate is irregular. There are good pedal pulses and no edema in the lower extremity. RESPIRATORY: Not tachypneic. Percussion note is normal. Auscultation reveals mild reduced breath sounds, a few rhonchi bilaterally. ABDOMEN: Supple, nontender. No bruit is present. DIAGNOSTIC STUDIES: An ECG on admission demonstrated atrial fibrillation with rate of 91 beats per minute and no evidence of ischemia or infarction. His heart rate 140 150 beats per minute with IV Cardizem drip was started and the heart rate has slowed down somewhat. He had an echocardiogram previously, which showed normal LV systolic function. IMPRESSION: The patient's atrial fibrillation with rapid rate may be related to noncompliance, of course consumption of alcohol does not help. RECOMMENDATIONS: Continue with IV Cardizem drip, start him on a higher dose of [place], [place] REPORT OF CONSULTATION NAME: MUNA BOSCH UNIT #: [id number] ROOM: [facility] DOCTOR: MERCY EPSINO,ZCAH BIRTHDATE: [birth year] metoprolol tartrate, i.e., 50 mg b.i.d. and hold off digoxin for the time being. If rate is adequately controlled with beta-harvinder, this is probably the best way to handle. This patient has never had any GI bleed or hematuria. Therefore, Xarelto is safe to be continued. I thank you on behalf of Dr. Marquez for this consult. ZACH MADRID MD CM:CONSTR:REPORT OF CONSULTATION 1148 04/11/18 8177 interface RASHAWN MARQUEZ MD
--- NOTE | ~2018-04-09 | CON ---
[place], [place] REPORT OF CONSULTATION NAME: MUNA BOSCH UNIT #: [id number] ROOM: [facility] DOCTOR: CELIO BLANCA MD BIRTHDATE: [birth year] DOS: 04/10/2018 PSYCHIATRIC CONSULT CHIEF COMPLAINT: "I have just been so depressed." HISTORY OF PRESENT ILLNESS: This is a 52-year-old white male who was admitted to ICU following an intentional drug overdose. The patient reports he had a very bad day after an argument with his cousin and overdosed deliberately on BuSpar. He reportedly took 20-30 pills. The patient reports ongoing depression for some time and actively sees Janey Monte as a counselor and Mary Jane Rodriguez as a nurse practitioner at [facility]. The patient reports multiple medication trials. Most recently, it sounds like he has been on Viibryd, but it gave him diarrhea, so he discontinued it. The BuSpar is also relatively new. He has had trials of Lexapro and Effexor as well. He endorses ongoing depression for some time, at least 6-8 months, during which time he has poor sleep and appetite with difficulty falling asleep, sleep continuity disturbance, selling manager awakening, anergia, anhedonia, hopeless, helpless feelings, crying spells, and inability to cope. He also states that alcohol has become problematic and that he will wake up and start drinking as early as 6:00 a.m. The patient also is a marijuana smoker. PAST MEDICAL HISTORY: Remarkable for multiple medical problems including atrial fibrillation, coronary artery disease, COPD, diverticulitis, folate deficiency, hepatic steatosis, hiatal hernia, squamous cell carcinoma, seizure disorder, hypertension, hypothyroid, osteoarthritis, osteopenia, vitamin D deficiency. SOCIAL HISTORY: He drinks 6-8, 12-16 ounce beers daily for the last 35 years. He smokes marijuana frequently and smokes cigarettes at 1 pack per day for 25 years. ALLERGIES: He lists no drug allergies. MENTAL STATUS: He is alert and oriented. He does appear depressed, sad and affect is flat and blunted. He endorses multiple neurovegetative symptoms including a passive wish to at the present time, stating he just wished he can go to bed and never wake up. He is open to receiving help, however. There is no neto or hypomania. There is no gross psychosis. DIAGNOSES: Major depression, recurrent, severe and alcohol dependence, cannabis abuse. PLAN: I will go ahead and start him on Remeron 15 mg at bedtime with Zyprexa 2.5 mg twice daily to augment the effectiveness of the medicine. These medicine should do very rapidly aid sleep and appetite and improve his overall mental status. I did talk with him at length about going to [facility] and he is in agreement with this. I would do, however, continue his pink slip in transport, so he gets there safely and I can continue to work with him there. [place], [place] REPORT OF CONSULTATION NAME: MUNA BOSCH My UNIT #: [id number] ROOM: [facility] DOCTOR: CELIO BLANCA MD BIRTHDATE: [birth year] CELIO BLANCA MD CM:CONSTR:REPORT OF CONSULTATION 1103 04/10/18 1536 interface
--- NOTE | ~2018-04-09 | PR ---
[place], [place] PROGRESS NOTE NAME: [id number] UNIT #: [id number] ROOM: [facility] DOCTOR: ZACH MADRID MD BIRTHDATE: [birth year] DOS: 04/15/2018 SUBJECTIVE: He feels well. He is alert, oriented, comfortable. He has no history of dizziness, he is not shaking. He is eating fairly well. In fact, planning to have double breakfast this morning. He has some dry cough, but no chest pain, no palpitation. OBJECTIVE: GENERAL: He looks well. VITAL SIGNS: Temperature is normal. Pulse is irregular at about 96 beats per minute, blood pressure 136/91. NECK: JVP is normal. LUNGS: He has a few rhonchi, but very good breath sounds bilaterally. EXTREMITIES: No edema in lower extremities. DIAGNOSTIC DATA: Monitor shows AFib with a fairly good with a reasonable heart rate. LABORATORY DATA: Digoxin level is 0.36 and magnesium 1.6. IMPRESSION: 1. Atrial fibrillation, duration is not known. Heart rate is controlled and dose of metoprolol can be increased to 100 mg b.i.d. if heart rate is not tamed adequately. 2. There is no evidence of heart failure. From cardiac standpoint, he may be discharged. ZACH MADRID MD CM:PNTRANS [id number] ZACH MADRID MD 04/16/18 0740 interface
--- NOTE | ~2018-04-09 | PR ---
[place], [place] PROGRESS NOTE NAME: MUNA BOSCH UNIT #: [id number] ROOM: [facility] DOCTOR: ZACH MADRID MD BIRTHDATE: [birth year] DOS: I am seeing this patient on behalf of Dr. Marquez. SUBJECTIVE: He has alcoholism and was a heavy smoker, and was admitted to the hospital with atrial fibrillation and rapid rate. He is now having some visual hallucinations. He is eating okay, conversing reasonably as well. He does not complain of any palpitations and has not had any breathing difficulty. He had some cough. PHYSICAL EXAMINATION: GENERAL: This is a patient who is alert, oriented. He is eating breakfast at this time and watching TV. He is very comfortable. VITAL SIGNS: Heart rate is around 90 to 110 beats per minute. NECK: JVP is normal. LUNGS: He has some wheezing and rhonchi and crackles bilaterally. EXTREMITIES: No edema in lower extremity. CARDIOVASCULAR: Auscultation reveals irregular heart rate. No rub. IMPRESSION: 1. Chronic alcoholism with withdrawal. 2. Chronic obstructive pulmonary disease. 3. Atrial fibrillation with rapid rate. Dr. Marquez had added digoxin 0.25 mg daily and his metoprolol tartrate was increased to 75 b.i.d. I believe these 2 medications should bring his heart rate down satisfactorily. ZACH MADRID MD CM:PNTRANS 0924 [id number] ZACH MADRID MD 04/14/18 0045 interface
[~2018-04-09 17:15] MED LIST changes: -DIGOXIN0.125 MG PO; +DIGOXIN125 MCG PO; -VITAMIN B121000 MC1 PO; +VITAMIN B121000 MC1 SL
[2018-04-09 17:20] VITALS: BP 123/81
[2018-04-09 17:43] LABS: BASO # 0.1 10*3/uL (0.0-0.1); EOS # 0.1 10*3/uL (0.0-0.4); EOS % 1.7 % (1.0-4.0); HEMATOCRIT 36.7 % (42.0-52.0); HEMOGLOBIN 12.6 g/dl (14.0-18.0); LYMPH # 0.7 10*3/uL (1.3-4.4); MEAN CELL VOLUME 105.5 fl (80.0-94.0); MEAN CORPUSCULAR HGB 36.2 pg (27.0-31.0); MEAN CORPUSCULAR HGB CONC 34.3 g/dl (33.0-37.0); MEAN PLATELET VOLUME 10.3 fl (9.6-12.3); MONO # 0.7 10*3/uL (0.1-1.0); MONO % 11.7 % (3.0-9.0); NEUT # 4.6 10*3/uL (2.3-7.9); NEUT % 73.6 % (47.0-73.0); PLATELET COUNT AUTOMATED 209 10*3/uL (130-400); RED BLOOD COUNT 3.48 10*6/uL (4.50-5.90); RED CELL DISTRI WIDTH 12.9 % (0-14.5); WHITE BLOOD COUNT 6.3 10*3/uL (4.8-10.8)
[2018-04-09 18:01] LABS: ALBUMIN 3.2 gm/dl (3.1-4.5); ALKALINE PHOSPHATASE 61 U/L (45-117); BUN 6 mg/dl (7-24); CHLORIDE 105 mmol/L (98-107); CREATININE 0.72 mg/dL (0.70-1.30); POTASSIUM 3.6 mmol/L (3.5-5.1); SGOT/AST 22 IU/L (3-35); SGPT/ALT 27 U/L (12-78); SODIUM 134 mmol/L (136-145); TOTAL PROTEIN 6.5 gm/dL (6.4-8.2)
[2018-04-09 18:03] LABS: ACETAMINOPHEN (TYLENOL) < 2.0 ug/ml (10-30)
[2018-04-09 18:09] LABS: THYROID STIM HORMONE (HS) 0.064 uIU/ml (0.358-4.75)
[2018-04-09 18:23] VITALS: BP 101/69
[2018-04-09 18:45] VITALS: BP 114/79
[2018-04-09 19:46] LABS: BILIRUBIN NEGATIVE (NEGATIVE); BLOOD NEGATIVE (NEGATIVE); CLARITY CLEAR (CLEAR); COLOR YELLOW (YELLOW); GLUCOSE NEGATIVE (NEGATIVE); KETONE NEGATIVE (NEGATIVE); LEUKO ESTERASE NEGATIVE (NEGATIVE); NITRITE NEGATIVE (NEGATIVE); PH 5.5 (5.0-9.0); UROBILINOGEN 0.2 E.U./dl (0.2-1.0)
[2018-04-09 19:55] LABS: URINE AMPHETAMINES < 1000 (1000ng/ml); URINE BARBITURATES < 200 (200ng/ml); URINE BENZODIAZEPINES < 200 (200ng/ml); URINE CANNABINOIDS (THC) < 50 (50ng/ml); URINE COCAINE < 300 (300ng/ml); URINE METHADONE < 300 (300ng/ml); URINE OPIATES < 300 (300ng/ml)
[2018-04-09 20:00] VITALS: BP 124/70
[2018-04-09 20:05] LABS: URINE PHENCYCLIDINE < 25 (25ng/ml)
[2018-04-09 20:08] LABS: EPITHELIAL CELLS 0-5BTR
[2018-04-10] VITALS (9 sets, daily range): BP systolic 92–145; BP diastolic 62–98
[2018-04-10] MEDS ORDERED: NEURONTIN300 MG PO (05:13)
[2018-04-10] MEDS ORDERED: HYDROXYZINE HCL25 MG PO (05:16)
[2018-04-10 05:37] LABS: BUN 9 mg/dl (7-24); CHLORIDE 114 mmol/L (98-107); CREATININE 0.81 mg/dL (0.70-1.30); FREE T4 0.94 ng/dl (0.76-1.46); PHOSPHOROUS 3.3 mg/dL (2.5-4.9); POTASSIUM 4.3 mmol/L (3.5-5.1); SODIUM 144 mmol/L (136-145)
[2018-04-10 06:03] LABS: BASO % 0.7 % (0.0-1.0); EOS # 0.1 10*3/uL (0.0-0.4); EOS % 3.2 % (1.0-4.0); HEMATOCRIT 39.6 % (42.0-52.0); HEMOGLOBIN 13.6 g/dl (14.0-18.0); LYMPH # 0.5 10*3/uL (1.3-4.4); LYMPH % 10.3 % (27.0-41.0); MEAN CELL VOLUME 107.3 fl (80.0-94.0); MEAN CORPUSCULAR HGB 36.9 pg (27.0-31.0); MEAN CORPUSCULAR HGB CONC 34.3 g/dl (33.0-37.0); MEAN PLATELET VOLUME 10.8 fl (9.6-12.3); MONO # 0.8 10*3/uL (0.1-1.0); MONO % 17.4 % (3.0-9.0); NEUT % 67.5 % (47.0-73.0); PLATELET COUNT AUTOMATED 245 10*3/uL (130-400); RED BLOOD COUNT 3.69 10*6/uL (4.50-5.90); WHITE BLOOD COUNT 4.4 10*3/uL (4.8-10.8)
[2018-04-10 06:04] LABS: ACT PARTIAL THROMBO TIME 28.8 SECONDS (20.8-31.5)
[2018-04-10] MEDS ORDERED: ZANTAC 150150 MG PO (09:21)
[2018-04-10] MEDS ORDERED: Carafate1 GM PO (10:56)
[2018-04-11] VITALS (18 sets, daily range): BP systolic 95–121; BP diastolic 68–92
[2018-04-11 05:11] LABS: ALBUMIN 2.8 gm/dl (3.1-4.5); ALKALINE PHOSPHATASE 53 U/L (45-117); BUN 11 mg/dl (7-24); CHLORIDE 112 mmol/L (98-107); CREATININE 0.81 mg/dL (0.70-1.30); SGOT/AST 11 IU/L (3-35); SGPT/ALT 19 U/L (12-78); SODIUM 145 mmol/L (136-145); TOTAL PROTEIN 5.9 gm/dL (6.4-8.2)
[2018-04-11 06:17] LABS: HEMATOCRIT 37.1 % (42.0-52.0); HEMOGLOBIN 12.6 g/dl (14.0-18.0); MEAN CELL VOLUME 108.2 fl (80.0-94.0); MEAN CORPUSCULAR HGB 36.7 pg (27.0-31.0); PLATELET COUNT AUTOMATED 217 10*3/uL (130-400); RED BLOOD COUNT 3.43 10*6/uL (4.50-5.90); RED CELL DISTRI WIDTH 13.3 % (0-14.5); WHITE BLOOD COUNT 3.8 10*3/uL (4.8-10.8)
[2018-04-11 07:20] LABS: BASOPHILS 1 % (0-1); PLATELET SUFFICIENCY NORMAL (NORMAL); TOTAL CELLS COUNTED 100 #CELLS
[2018-04-12] VITALS (8 sets, daily range): BP systolic 111–134; BP diastolic 76–90
[2018-04-13] VITALS: BP 136/86
[2018-04-13 04:00] VITALS: BP 133/95
[2018-04-13 08:00] VITALS: BP 140/100
[2018-04-13 12:00] VITALS: BP 118/86
[2018-04-13 16:00] VITALS: BP 114/81
[2018-04-13 20:00] VITALS: BP 134/87
[2018-04-14] VITALS: BP 139/87
[2018-04-14 04:00] VITALS: BP 109/90
[2018-04-14 05:58] LABS: BUN 20 mg/dl (7-24); CHLORIDE 107 mmol/L (98-107); CREATININE 0.92 mg/dL (0.70-1.30); PHOSPHOROUS 4.8 mg/dL (2.5-4.9); POTASSIUM 4.8 mmol/L (3.5-5.1); SODIUM 143 mmol/L (136-145)
[2018-04-14 08:00] VITALS: BP 127/100
[2018-04-14 12:00] VITALS: BP 108/76
[2018-04-14 16:00] VITALS: BP 114/88
[2018-04-14 18:00] VITALS: BP 124/97
[2018-04-15] VITALS: BP 110/81
[2018-04-15 04:00] VITALS: BP 131/91
[2018-04-15 05:47] LABS: DIGOXIN 0.36 ng/ml (0.8-2.0)
[2018-04-15 08:00] VITALS: BP 136/95
[2018-04-15] MEDS ORDERED: METOPROLOL TART50 M1 PO (10:47)
[2018-04-15] MEDS ORDERED: ZYPREXA2.5 MG PO (10:47)
[2018-04-15] MEDS ORDERED: MIRTAZAPINE15 M2 PO (10:47)
== END 2018-04-15 11:14 | disposition home or self-care (01) | DRG 918 ==
LOC: ED 17:15 → ICCU 18:10
PROVIDERS: Emergency Medicine; Internal Medicine; Internal Medicine Nephrology
DX: T43.592A Poisoning by other antipsychotics and neuroleptics, intentional self-harm, initial encounter (principal); F10.231 Alcohol dependence with withdrawal delirium; R65.10 Systemic inflammatory response syndrome (SIRS) of non-infectious origin without acute organ dysfunction; E44.0 Moderate protein-calorie malnutrition; F33.2 Major depressive disorder, recurrent severe without psychotic features; E83.42 Hypomagnesemia; E83.51 Hypocalcemia; I48.2 Chronic atrial fibrillation; E87.1 Hypo-osmolality and hyponatremia; T14.91XA Suicide attempt, initial encounter; R00.0 Tachycardia, unspecified; D72.810 Lymphocytopenia; D53.9 Nutritional anemia, unspecified; K44.9 Diaphragmatic hernia without obstruction or gangrene; I10 Essential (primary) hypertension; E53.8 Deficiency of other specified B group vitamins; I25.10 Atherosclerotic heart disease of native coronary artery without angina pectoris; J44.9 Chronic obstructive pulmonary disease, unspecified; M19.90 Unspecified osteoarthritis, unspecified site; M85.80 Other specified disorders of bone density and structure, unspecified site; R44.1 Visual hallucinations; F17.210 Nicotine dependence, cigarettes, uncomplicated; K57.90 Diverticulosis of intestine, part unspecified, without perforation or abscess without bleeding; E89.0 Postprocedural hypothyroidism; F10.220 Alcohol dependence with intoxication, uncomplicated; Z71.6 Tobacco abuse counseling; Y92.89 Other specified places as the place of occurrence of the external cause; Z79.899 Other long term (current) drug therapy; Z91.81 History of falling; Z85.89 Personal history of malignant neoplasm of other organs and systems; Z82.49 Family history of ischemic heart disease and other diseases of the circulatory system; Z83.3 Family history of diabetes mellitus; Z84.89 Family history of other specified conditions; Z90.49 Acquired absence of other specified parts of digestive tract; Z68.24 Body mass index [BMI] 24.0-24.9, adult

== ENCOUNTER → 2018-11-22 | Outpatient (CLI) | payer OTHER ==
[~2018-11-22] MED LIST changes: +Carafate1 GM PO; +HYDROXYZINE HCL25 MG PO; +METOPROLOL TART50 M1 PO; +MIRTAZAPINE15 M2 PO; +NEURONTIN300 MG PO; +ZANTAC 150150 MG PO; +ZYPREXA2.5 MG PO
[2018-11-22 08:48] LABS: BASO # 0.1 10*3/uL (0.0-0.1); BASO % 0.7 % (0.0-1.0); EOS # 0.2 10*3/uL (0.0-0.4); EOS % 2.8 % (1.0-4.0); HEMATOCRIT 49.1 % (42.0-52.0); HEMOGLOBIN 17.4 g/dl (14.0-18.0); LYMPH # 1.3 10*3/uL (1.3-4.4); LYMPH % 15.7 % (27.0-41.0); MEAN CELL VOLUME 107.2 fl (80.0-94.0); MEAN CORPUSCULAR HGB CONC 35.4 g/dl (33.0-37.0); MEAN PLATELET VOLUME 11.2 fl (9.6-12.3); MONO # 1.1 10*3/uL (0.1-1.0); MONO % 13.8 % (3.0-9.0); NEUT # 5.4 10*3/uL (2.3-7.9); NEUT % 66.5 % (47.0-73.0); PLATELET COUNT AUTOMATED 222 10*3/uL (130-400); RED BLOOD COUNT 4.58 10*6/uL (4.50-5.90); RED CELL DISTRI WIDTH 12.4 % (0-14.5); WHITE BLOOD COUNT 8.1 10*3/uL (4.8-10.8)
[2018-11-22 09:21] LABS: ALBUMIN 3.5 gm/dl (3.1-4.5); ALKALINE PHOSPHATASE 105 U/L (45-117); BUN 14 mg/dl (7-24); CHLORIDE 105 mmol/L (98-107); CHOLESTEROL 138 mg/dL (<200); HDL CHOLESTEROL 40 mg/dl (40-60); LDL CHOLESTEROL 71 mg/dL (9-159); POTASSIUM 3.9 mmol/L (3.5-5.1); SGOT/AST 14 IU/L (3-35); SGPT/ALT 22 U/L (12-78); SODIUM 138 mmol/L (136-145); TOTAL PROTEIN 7.9 gm/dL (6.4-8.2); TRIGLYCERIDES 134 mg/dl (<150); VLDL CHOLESTEROL 27 mg/dL (6-40)
[2018-11-22 09:25] LABS: THYROID STIM HORMONE (HS) 0.899 uIU/ml (0.358-4.75)
== END | disposition home or self-care (01) ==
LOC: LAB 08:00
PROVIDERS: Registered Nurse Flight
DX: E78.00 Pure hypercholesterolemia, unspecified (principal); E03.9 Hypothyroidism, unspecified; E55.9 Vitamin D deficiency, unspecified; F10.99 Alcohol use, unspecified with unspecified alcohol-induced disorder

== ENCOUNTER → 2019-01-02 | Outpatient (CLI) | payer OTHER ==
[2019-01-02 10:57] LABS: CREATININE 1.05 mg/dL (0.70-1.30)
== END | disposition home or self-care (01) ==
LOC: CT 12-26 13:00 → LAB 09:58 → CT 11:00
PROVIDERS: Registered Nurse Flight
DX: I65.01 Occlusion and stenosis of right vertebral artery (principal)

== ENCOUNTER → 2019-07-15 | Outpatient (CLI) | payer OTHER ==
[2019-07-15 10:46] LABS: ALBUMIN 3.3 gm/dl (3.1-4.5); ALKALINE PHOSPHATASE 70 U/L (45-117); BUN 5 mg/dl (7-24); CHLORIDE 103 mmol/L (98-107); CHOLESTEROL 173 mg/dL (<200); CREATININE 0.94 mg/dL (0.70-1.30); HDL CHOLESTEROL 92 mg/dl (40-60); LDL CHOLESTEROL 68 mg/dL (9-159); POTASSIUM 3.9 mmol/L (3.5-5.1); SGOT/AST 18 IU/L (3-35); SGPT/ALT 16 U/L (12-78); SODIUM 137 mmol/L (136-145); TOTAL PROTEIN 7.3 gm/dL (6.4-8.2); TRIGLYCERIDES 64 mg/dl (<150); VLDL CHOLESTEROL 13 mg/dL (6-40)
== END | disposition home or self-care (01) ==
LOC: LAB 09:54
PROVIDERS: Registered Nurse Flight
DX: E03.9 Hypothyroidism, unspecified (principal); E78.00 Pure hypercholesterolemia, unspecified

== ENCOUNTER 2019-08-08 12:51 | Inpatient (IN) | payer OTHER ==
[2019-08-08] VITALS (7 sets, daily range): BP systolic 82–132; BP diastolic 52–90
[~2019-08-08] VITALS: Ht 177.8 cm; Wt 76.3 kg
--- NOTE | ~2019-08-08 | EKG ---
[place], [place] ELECTROCARDIOGRAM REPORT NAME: MUNA BOSCH UNIT #: [id number] ROOM: 526 DOCTOR: ALISHA DRAFT REPORT BIRTHDATE: [birth year] [facility] Test Date: 2019-08-08 Test Time: 13:14:12 Pat Name: MUNA BOSCH Department: Room: 526 Gender: M Color Tester: PATTI : 1965 Requested By: SALLY JOSEPH Order Number: [id number] Reading MD: Fito Schwab MD Measurements Intervals [place] Rate: 123 P: [place]: QRS: 61 QRSD: 91 T: -63 QT: 321 QTc: 460 Interpretive Statements Atrial fibrillation Ventricular premature complex Borderline low voltage, extremity leads Borderline ST depression, diffuse leads Baseline wander in lead(s) V2,V3 Electronically Signed On 08-09-2019 14:11:22 PDT by Fito Schwab MD CM:EKGRPT:ELECTROCARDIOGRAM REPORT 1314 1411 SALLY DEMARCO DRAFT REPORT SALLY JOSEPH DO
--- NOTE | ~2019-08-08 | CON ---
[place], [place] REPORT OF CONSULTATION [id number] UNIT #: [id number] ROOM: 526 DOCTOR: ZACH MADRID MD BIRTHDATE: [birth year] DOS: 08/11/2019 HISTORY OF PRESENT ILLNESS: This is a 54-year-old -[place]enegr[place] man with a history of alcoholism, who claimed that he had not drank any alcohol one week before he was admitted to the hospital. He has COPD and still smokes, history of coronary artery disease, depression, fatty liver, hiatus hernia, head and neck cancer, essential hypertension, hypothyroidism, osteoarthritis, vitamin D deficiency, and seizure disorder. He still smokes cigarettes and still drinks alcohol, but had not had any former week or so before he was admission. He has chronic atrial fibrillation and never had a stroke. He was admitted to the hospital because he had been nauseated and had watery diarrhea for about 3 days. When he stood up, he felt lightheaded and dizzy, but did not quite pass out. He had to sit down. This happened repeatedly. He was unsteady as well. He had no palpitations, chest pain, or heaviness. He did not have any abdominal cramps. No fever or chills. Since admission, he has been given lot of IV fluids and oral supplements as well. Diarrhea seemed to have settled down. PHYSICAL EXAMINATION: GENERAL: This reveals a patient who is alert and oriented. His complexion is fine. VITAL SIGNS: Temperature is 97.8 degrees Fahrenheit, pulse is 88 and regular, blood pressure 132/80. NECK: JVP is rather low. CARDIAC: Auscultation revealed no murmurs or rubs. There is no carotid bruit. EXTREMITIES: He has good pedal pulses and no edema in the lower extremities. RESPIRATORY: He has rhonchi and some crackles with moderately reduced breath sounds bilaterally. ABDOMEN: Bowel sounds are present. The liver is not enlarged and there is no guarding or rigidity. LABORATORY DATA: Hemoglobin is 11.9 grams today, was 14.1 gram on the day of admission. Renal function was normal yesterday. Potassium is 3.5. IMPRESSION: 1. This patient had presyncope, most likely from orthostatic hypotension. Despite IV fluids, he still seems volume depleted and oral and IV fluids should be encouraged. 2. Chronic atrial fibrillation is present and rate is controlled. He takes Xarelto at home. I think that should be continued along with metoprolol that he has been on for a long time. No cardiac workup is necessary. I thank for this consultation. [place], [place] REPORT OF CONSULTATION NAME: MUNA BOSCH UNIT #: [id number] ROOM: 526 DOCTOR: ZACH MADRID MD BIRTHDATE: [birth year] ZACH MADRID MD CM:CONSTR:REPORT OF CONSULTATION 1113 08/11/19 1148 interface
--- NOTE | 2019-08-08 13:00 | NUR ---
NOTIFIED DR JOSEPH OF BP AND DIZZINESS X 1 WEEK. VERBAL ORDER GIVEN FOR NSS X 1 L WIDE OPEN. FLOAT RN IN ROOM PLACING IV AND AWARE OF NEED FOR IV FLUID BOLUS ONCE IV PLACED. IV FLUID BAG IS SPIKED AND LINE PRIMED READY FOR ADMINISTRATION AT BEDSIDE.
[2019-08-08 13:38] LABS: INTERNATIONAL NORM RATIO 1.2 (2.0-3.5)
[2019-08-08 13:41] LABS: ALBUMIN 3.4 gm/dl (3.1-4.5); CREATININE 1.71 mg/dL (0.70-1.30); POTASSIUM 3.2 mmol/L (3.5-5.1); TOTAL PROTEIN 7.6 gm/dL (6.4-8.2); URIC ACID 7.3 mg/dL (3.5-7.2)
[2019-08-08 14:04] LABS: HEMATOCRIT 40.3 % (42.0-52.0); HEMOGLOBIN 14.1 g/dl (14.0-18.0); MEAN CELL VOLUME 105.8 fl (80.0-94.0); MEAN PLATELET VOLUME 11.8 fl (9.6-12.3); PLATELET COUNT AUTOMATED 90 10*3/uL (130-400); RED BLOOD COUNT 3.81 10*6/uL (4.50-5.90); RED CELL DISTRI WIDTH 12.8 % (0-14.5); WHITE BLOOD COUNT 5.2 10*3/uL (4.8-10.8)
[2019-08-08 14:08] LABS: ATYPICAL LYMPHS 2 % (0-0); PLATELET SUFFICIENCY LOW (NORMAL); TOTAL CELLS COUNTED 100 #CELLS
[2019-08-08] MEDS ORDERED: DOXEPIN HCL25 MG PO (14:11)
[2019-08-08] MEDS ORDERED: HYDROXYZINE PAM25 M1 PO (14:11)
[2019-08-08] MEDS ORDERED: TRAZODONE50 MG PO (14:12)
--- NOTE | 2019-08-08 14:31 | NUR ---
lactic acid @ 2.8, dr myers aware.
--- NOTE | 2019-08-08 16:20 | NUR ---
A 54, admitted to 5E, under the services of STEFFANIE Chatterjee DO with a diagnosis of DEHYDRATION. Chief complaint is FALL X2, DIZZINESS. Patient arrived via ambulatory from ER. Monitor applied. Initial assessment completed. Vital signs taken and recorded. STEFFANIE CHATTERJEE DO notified of admission to the unit. Orders received. See assessment for past medical history, medications and allergies. Patient and/or family oriented to unit. [facility] visitation policy reviewed. Clothing/patient valuable form completed. ANIL MILLER
--- NOTE | 2019-08-08 17:19 | NUR ---
[facility] CONTACTED IN REGARDS TO PT'S MED REC. STATES THEY WILL FAX LIST.
[2019-08-08] MEDS ORDERED: NEURONTIN300 MG PO (18:07)
[2019-08-08] MEDS ORDERED: BUPROPION HCL300 MG PO (18:10)
[2019-08-08] MEDS ORDERED: LOPRESSOR50 M1 PO (18:12)
--- NOTE | 2019-08-08 18:37 | NUR ---
DR RUSSO MADE AWARE OF ORTHO RESULTS.
--- NOTE | 2019-08-08 19:37 | NUR ---
NOTIFIED DR. PARISI OF CRITICAL LACTIC ACID, 2.7. NO NEW ORDERS RECEIVED.
--- NOTE | 2019-08-08 21:55 | NUR ---
CRITICAL LACTIC ACID OF 2.6 RECIEVED. WILL NOTIFY THE DOCTOR.
--- NOTE | 2019-08-08 21:57 | NUR ---
NOTIFIED DOCTOR ISAK OF LACTIC ACID 2.6-CRITICAL. NO ORDERS RECIEVED AT THIS TIME.
--- NOTE | 2019-08-08 23:39 | NUR ---
MEDICATED WITH TYLENOL FOR C/O DISCOMFORT.
[2019-08-09] VITALS: BP 105/76
--- NOTE | 2019-08-09 02:00 | NUR ---
RESTING IN BED WITH EYES CLOSED; TYLENOL APPARENTLY EFFECTIVE.
--- NOTE | 2019-08-09 06:30 | NUR ---
BLADDER SCANNED FOR [address] PARISI & NEW ORDERED RECEIVED TO STRAIGHT CATH PATIENT.
--- NOTE | 2019-08-09 06:40 | NUR ---
EXPLAINED TO PATIENT ABOUT DROnelia ORDERING FOR HIM TO BE STRAIGHT CATHERIZED. PT. ADAMANTLY REFUSES TO BE STRAIGHT CATHERIZED. PT. STATES "WHAT IS THE BIG HURRY?" EXPLAINED TO PATIENT THAT HE HAS 480 CC'S OF URINE IN HIS BLADDER & THAT HE HAS BEEN RECEIVING IV FLUIDS AT 100 CC'S HOUR. PT. STILL REFUSES.
[2019-08-09 06:42] LABS: EOS # 0.2 10*3/uL (0.0-0.4); HEMATOCRIT 36.8 % (42.0-52.0); HEMOGLOBIN 12.5 g/dl (14.0-18.0); LYMPH # 0.9 10*3/uL (1.3-4.4); LYMPH % 22.1 % (27.0-41.0); MEAN CELL VOLUME 106.4 fl (80.0-94.0); MEAN CORPUSCULAR HGB 36.1 pg (27.0-31.0); MONO # 0.5 10*3/uL (0.1-1.0); MONO % 13.2 % (3.0-9.0); NEUT # 2.4 10*3/uL (2.3-7.9); NEUT % 59.2 % (47.0-73.0); PLATELET COUNT AUTOMATED 92 10*3/uL (130-400); RED BLOOD COUNT 3.46 10*6/uL (4.50-5.90); RED CELL DISTRI WIDTH 13.1 % (0-14.5)
[2019-08-09 07:10] LABS: BUN 29 mg/dl (7-24); CHLORIDE 107 mmol/L (98-107); CHOLESTEROL 108 mg/dL (<200); CREATININE 1.37 mg/dL (0.70-1.30); HDL CHOLESTEROL 38 mg/dl (40-60); LDL CHOLESTEROL 59 mg/dL (9-159); POTASSIUM 3.5 mmol/L (3.5-5.1); SODIUM 138 mmol/L (136-145); TRIGLYCERIDES 53 mg/dl (<150); VLDL CHOLESTEROL 11 mg/dL (6-40)
--- NOTE | 2019-08-09 07:56 | NUR ---
24 HR chart check completed.
[2019-08-09 07:58] LABS: VITAMIN D, 25-HYDROXY 19.4 ng/mL (30-100)
[2019-08-09 08:00] VITALS: BP 110/60
--- NOTE | 2019-08-09 11:10 | NUR ---
DR JOSEPH AWARE OF TACHYCARDIA UP TO 180s-190s W/ EXERTION.
[2019-08-09 11:41] LABS: BILIRUBIN 1+ (NEGATIVE); BLOOD NEGATIVE (NEGATIVE); CLARITY SL CLOUDY (CLEAR); COLOR YELLOW (YELLOW); GLUCOSE NEGATIVE (NEGATIVE); KETONE TRACE (NEGATIVE); LEUKO ESTERASE NEGATIVE (NEGATIVE); NITRITE NEGATIVE (NEGATIVE); PH 5.5 (5.0-9.0); SPECIFIC GRAVITY 1.025 (1.005-1.030)
[2019-08-09 11:52] LABS: BACTERIA 1+; MUCOUS TRACE
[2019-08-09 12:00] VITALS: BP 138/94
--- NOTE | 2019-08-09 12:00 | NUR ---
Patient resting quietly with no c/o discomfort. Respirations easy and regular. Vital signs stable. No overt distress. FLO VÁZQUEZ
[2019-08-09 16:00] VITALS: BP 136/77; BP 140/90
--- NOTE | 2019-08-09 16:00 | NUR ---
PT EATING VERY WELL THIS AFTERNOON AND FEELS BETTER.
--- NOTE | 2019-08-09 19:30 | NUR ---
24 HOUR CHART CHECK COMPLETED
[2019-08-09 19:50] VITALS: BP 146/76
[2019-08-09 20:00] VITALS: BP 137/95
--- NOTE | 2019-08-09 20:10 | NUR ---
PATIENT ASSESSMENT COMPLETED AT THIS TIME WITHOUT INCIDENT. PATIENT DENIES ANY CHEST PAIN OR SHORTNESS OF BREATH AT THIS TIME. NEGATIVE ASSESSMENT AT THIS TIME. CALL LIGHT WITHIN REACH WILL CONTINUE TO MONTIOR.
[2019-08-10] VITALS: BP 164/98
--- NOTE | 2019-08-10 02:00 | NUR ---
PATIENT AWAKE AT THIS TIME TO USE URINAL AND REQUESTED THAT HIS SOUP BE HEATED UP AT THIS TIME. PATIENT DENIED ANY DISTRESS AT THIS TIME. CALL LIGHT WITHIN REACH. SOUP HEATED FOR PATIENT. WILL CONTINUE TO MONITOR.
[2019-08-10 07:34] LABS: HEMATOCRIT 35.2 % (42.0-52.0); HEMOGLOBIN 11.9 g/dl (14.0-18.0); MEAN CELL VOLUME 108.6 fl (80.0-94.0); MEAN CORPUSCULAR HGB 36.7 pg (27.0-31.0); MEAN CORPUSCULAR HGB CONC 33.8 g/dl (33.0-37.0); MEAN PLATELET VOLUME 12.2 fl (9.6-12.3); PLATELET COUNT AUTOMATED 91 10*3/uL (130-400); RED BLOOD COUNT 3.24 10*6/uL (4.50-5.90); RED CELL DISTRI WIDTH 13.1 % (0-14.5); WHITE BLOOD COUNT 4.5 10*3/uL (4.8-10.8)
[2019-08-10 07:50] VITALS: BP 122/84
[2019-08-10 08:00] LABS: BASOPHILS 1 % (0-1); PLATELET SUFFICIENCY LOW (NORMAL); TOTAL CELLS COUNTED 100 #CELLS
[2019-08-10 08:02] LABS: BUN 20 mg/dl (7-24); CHLORIDE 106 mmol/L (98-107); CREATININE 1.06 mg/dL (0.70-1.30); POTASSIUM 3.5 mmol/L (3.5-5.1); SODIUM 137 mmol/L (136-145)
--- NOTE | 2019-08-10 09:45 | NUR ---
Shift chart check completed.
--- NOTE | 2019-08-10 10:54 | NUR ---
Patient resting quietly with no c/o discomfort. Respirations easy and regular. Vital signs stable. No overt distress. HISSOM,BRYAN
[2019-08-10 12:00] VITALS: BP 137/88
--- NOTE | 2019-08-10 12:23 | NUR ---
INFORMED DR. HERNANDEZ GROUP OF NEW CONSULT. NO NEW ORDERS AT THIS TIME.
--- NOTE | 2019-08-10 15:17 | NUR ---
WAS IN TO SEE THE PATIENT. PATIENT STATED HE SEES ALREADY. NEW CONSULT WAS PUT IN FOR HIS GROUP. SPOKE WITH DR. MUJICA REGARDING NEW CONSULT. NO NEW ORDERS RECIEVED AT THIS TIME.
[2019-08-10 16:00] VITALS: BP 152/98
--- NOTE | 2019-08-10 16:21 | NUR ---
PATIENT COMPLAINS OF INDIGESTION. MEDICATED WITH TUMS. VERBALIZED RELIEF. VOICES NO OTHER CONCERNS AT THIS TIME. RESTING IN BED. CALL LIGHT WITHIN REACH
--- NOTE | 2019-08-10 18:21 | NUR ---
Patient resting quietly with no c/o discomfort. Respirations easy and regular. Vital signs stable. No overt distress. HISSOM,BRYAN
--- NOTE | 2019-08-10 19:32 | NUR ---
24 HOUR CHART CHECK COMPLETED
[2019-08-10 20:00] VITALS: BP 158/90
--- NOTE | 2019-08-10 20:00 | NUR ---
PATIENT ASSESSMENT COMPLETED AT THIS TIME WITHOUT INCIDENT. PATIENT DENIES ANY DISTRESS OR PAIN AT THIS TIME. A&O X3, SEATED UP IN BED WATCHING FOOTBALL GAME. MANUAL B/P 158/90, PATIENT DENIES ANY HEADACHE, BLURRED VISION, OR DIZZINESS. CALL LIGHT WITHIN REACH, WILL CONTINUE TO MONITOR.
[2019-08-11] VITALS: BP 150/92
--- NOTE | 2019-08-11 00:40 | NUR ---
PATIENT RESTING IN A POSITION OF COMFORT IN BED, RESPIRATIONS EASY AND NONLABORED AT THIS TIME. CALL LIGHT WITHIN REACH, WILL CONTINUE TO MONITOR
--- NOTE | 2019-08-11 04:15 | NUR ---
PATIENT RESTING IN A POSITION OF COMFORT IN BED AT THIS TIME. RESPIRATIONS EASY AND NONLABORED AT THIS TIME. CALL LIGHT WITHIN REACH, WILL CONTINUE TO MONITOR.
[2019-08-11 08:00] VITALS: BP 132/80
--- NOTE | 2019-08-11 09:35 | NUR ---
PHYSICAL THERAPY Physical therapy evaluation completed, 5E. Full details/evaluation to follow. Low complexity determined after chart review/evaluation, [address]. Pt has no PT needs. Recommend returning home at discharge. Thank you Emeli Fuentes, PT, DPT
--- NOTE | 2019-08-11 09:53 | NUR ---
Shift chart check completed.
--- NOTE | 2019-08-11 10:30 | NUR ---
[place] Operator in to talk to patient. Patient states lives at home with his mother. There are 0 steps in the home. Physician: Paolo Delaney [facility]acy: [facility] Home health services: none Patient's level of ADLs: INDEPENDENT Patient has working utilities: yes DME: none Follow-up physician's appointment after d/c: will be made by the hospitalist nurse director upon discharge Does patient want to access PORTAL?: no Discharge plan discussed with patient. He lives at home with his mother. He is independent in his ADLs and ambulation. Discussed home health care services and he denies any home needs at this time. When medically stable he will be discharged to home. His mother will provide transportation on discharge. GEM EAGLE
--- NOTE | 2019-08-11 10:34 | NUR ---
Occupational Therapy evaluation completed on 5 with full eval to follow. Precautions include dizziness, fall at home prior to admission, bed alarm,IV UE,inconsitant heart rate with any activity. Low complexity level 61625. Recommend no further OT and return home at [facility]. Thank you. Jasmin Fernandez OTr/L
--- NOTE | 2019-08-11 11:18 | NUR ---
Patient resting quietly with no c/o discomfort. Respirations easy and regular. Vital signs stable. No overt distress. HISSOM,BRYAN
[2019-08-11 12:00] VITALS: BP 136/89
--- NOTE | 2019-08-11 13:12 | NUR ---
SPOKE WITH DR MARSH. WANTED TO KNOW IF NURSE COULD CONTACT DR MADRID TO SEE IF PATIENT COULD BE DISCHARGED.
--- NOTE | 2019-08-11 13:13 | NUR ---
ATTEMPTED TO CONTACT DR MADRID. WILL TRY AGAIN
--- NOTE | 2019-08-11 13:17 | NUR ---
SPOKE WITH DR MADRID. SAID PATIENT COULD BE DISCHARGED. WILL INFORM DR MARSH
[2019-08-11] MEDS ORDERED: VITAMIN D32000 UNI1 PO (14:05)
--- NOTE | 2019-08-11 14:58 | NUR ---
The Discharge Plan/Instructions have been completed.
--- NOTE | 2019-08-11 14:58 | NUR ---
Discharge instructions reviewed with patient/family. Patient receptive and verbalizes understanding. Follow-up care arranged. Written instructions given to patient/family. BRYAN BURGOS
== END 2019-08-11 14:59 | disposition home or self-care (01) | DRG 422 ==
LOC: ED 12:51 → 5E 14:54 → EDHOLD 14:54 → 5E 15:06
PROVIDERS: Internal Medicine; ADMIT Emergency Medicine
DX: E86.0 Dehydration (principal); I95.1 Orthostatic hypotension; N17.0 Acute kidney failure with tubular necrosis; D53.9 Nutritional anemia, unspecified; E87.1 Hypo-osmolality and hyponatremia; E87.6 Hypokalemia; J44.9 Chronic obstructive pulmonary disease, unspecified; I25.10 Atherosclerotic heart disease of native coronary artery without angina pectoris; E53.8 Deficiency of other specified B group vitamins; R65.11 Systemic inflammatory response syndrome (SIRS) of non-infectious origin with acute organ dysfunction; F32.9 Major depressive disorder, single episode, unspecified; K57.90 Diverticulosis of intestine, part unspecified, without perforation or abscess without bleeding; I10 Essential (primary) hypertension; E03.9 Hypothyroidism, unspecified; M19.90 Unspecified osteoarthritis, unspecified site; F17.210 Nicotine dependence, cigarettes, uncomplicated; F41.9 Anxiety disorder, unspecified; G47.00 Insomnia, unspecified; R00.0 Tachycardia, unspecified; D69.6 Thrombocytopenia, unspecified; R73.9 Hyperglycemia, unspecified; E87.2 Acidosis; E55.9 Vitamin D deficiency, unspecified; I48.21 Permanent atrial fibrillation; G40.909 Epilepsy, unspecified, not intractable, without status epilepticus; E86.9 Volume depletion, unspecified; Z71.6 Tobacco abuse counseling; Z79.899 Other long term (current) drug therapy; Z85.89 Personal history of malignant neoplasm of other organs and systems; Z85.819 Personal history of malignant neoplasm of unspecified site of lip, oral cavity, and pharynx; Z90.49 Acquired absence of other specified parts of digestive tract; Z82.49 Family history of ischemic heart disease and other diseases of the circulatory system; Z83.3 Family history of diabetes mellitus; Z84.89 Family history of other specified conditions

== ENCOUNTER → 2019-08-12 | Outpatient (CLI) | payer OTHER ==
[~2019-08-12] MED LIST changes: +BUPROPION HCL300 MG PO; +DOXEPIN HCL25 MG PO; +HYDROXYZINE PAM25 M1 PO; +LOPRESSOR50 M1 PO; +TRAZODONE50 MG PO; +VITAMIN D32000 UNI1 PO
[2019-08-12 10:01] LABS: HEMATOCRIT 36.8 % (42.0-52.0); HEMOGLOBIN 12.9 g/dl (14.0-18.0); MEAN CORPUSCULAR HGB 37.5 pg (27.0-31.0); MEAN CORPUSCULAR HGB CONC 35.1 g/dl (33.0-37.0); MEAN PLATELET VOLUME 10.7 fl (9.6-12.3); PLATELET COUNT AUTOMATED 150 10*3/uL (130-400); RED BLOOD COUNT 3.44 10*6/uL (4.50-5.90); RED CELL DISTRI WIDTH 13.1 % (0-14.5); WHITE BLOOD COUNT 5.1 10*3/uL (4.8-10.8)
[2019-08-12 10:28] LABS: BASOPHILS 1 % (0-1); PLATELET SUFFICIENCY NORMAL (NORMAL); TOTAL CELLS COUNTED 100 #CELLS
== END | disposition home or self-care (01) ==
LOC: LAB 09:47
PROVIDERS: Internal Medicine
DX: N17.0 Acute kidney failure with tubular necrosis (principal); E86.0 Dehydration; D69.6 Thrombocytopenia, unspecified

== ENCOUNTER → 2019-08-14 | Outpatient (CLI) | payer OTHER ==
[2019-08-14 09:14] LABS: HEMATOCRIT 37.2 % (42.0-52.0); HEMOGLOBIN 12.6 g/dl (14.0-18.0); MEAN CELL VOLUME 106.3 fl (80.0-94.0); MEAN CORPUSCULAR HGB CONC 33.9 g/dl (33.0-37.0); MEAN PLATELET VOLUME 10.3 fl (9.6-12.3); RED CELL DISTRI WIDTH 13.1 % (0-14.5); WHITE BLOOD COUNT 4.2 10*3/uL (4.8-10.8)
[2019-08-14 09:18] LABS: PLATELET COUNT AUTOMATED 221 10*3/uL (130-400)
[2019-08-14 09:41] LABS: BUN 10 mg/dl (7-24); CHLORIDE 108 mmol/L (98-107); CREATININE 0.98 mg/dL (0.70-1.30); SODIUM 141 mmol/L (136-145)
[2019-08-14 10:51] LABS: BASOPHILS 2 % (0-1); TOTAL CELLS COUNTED 100 #CELLS
[2019-08-14 10:55] LABS: PLATELET SUFFICIENCY NORMAL (NORMAL)
== END | disposition home or self-care (01) ==
LOC: LAB 08:39
PROVIDERS: Internal Medicine
DX: N17.0 Acute kidney failure with tubular necrosis (principal); E86.0 Dehydration; D69.9 Hemorrhagic condition, unspecified

== ENCOUNTER 2019-12-06 17:55 | Inpatient (IN) | payer OTHER ==
[~2019-12-06] VITALS: Ht 177.8 cm; Wt 77.8 kg
[2019-12-06 18:00] VITALS: BP 119/88
[2019-12-06 18:11] LABS: BASO # 0.1 10*3/uL (0.0-0.1); BASO % 0.7 % (0.0-1.0); EOS # 0.3 10*3/uL (0.0-0.4); EOS % 4.8 % (1.0-4.0); HEMATOCRIT 38.1 % (42.0-52.0); HEMOGLOBIN 13.2 g/dl (14.0-18.0); LYMPH # 1.1 10*3/uL (1.3-4.4); LYMPH % 16.3 % (27.0-41.0); MEAN CELL VOLUME 107.3 fl (80.0-94.0); MEAN CORPUSCULAR HGB 37.2 pg (27.0-31.0); MEAN CORPUSCULAR HGB CONC 34.6 g/dl (33.0-37.0); MONO # 0.8 10*3/uL (0.1-1.0); NEUT # 4.6 10*3/uL (2.3-7.9); NEUT % 65.9 % (47.0-73.0); PLATELET COUNT AUTOMATED 96 10*3/uL (130-400); RED BLOOD COUNT 3.55 10*6/uL (4.50-5.90); RED CELL DISTRI WIDTH 14.9 % (0-14.5); WHITE BLOOD COUNT 6.9 10*3/uL (4.8-10.8)
[2019-12-06 18:18] LABS: ACT PARTIAL THROMBO TIME 34.7 SECONDS (20.0-32.1); INTERNATIONAL NORM RATIO 1.2 (2.0-3.5)
[2019-12-06 18:24] LABS: ALBUMIN 3.3 gm/dl (3.1-4.5); ALKALINE PHOSPHATASE 88 U/L (45-117); BUN 17 mg/dl (7-24); CHLORIDE 99 mmol/L (98-107); CREATININE 1.21 mg/dL (0.70-1.30); POTASSIUM 3.9 mmol/L (3.5-5.1); SGOT/AST 23 IU/L (3-35); SGPT/ALT 21 U/L (12-78); SODIUM 133 mmol/L (136-145); TOTAL PROTEIN 7.4 gm/dL (6.4-8.2)
[2019-12-06 18:26] LABS: TROPONIN I < 0.015 ng/ml (<0.045)
--- NOTE | 2019-12-06 19:05 | NUR ---
NURSE TO NURSE REPORT GIVEN TO THIS RN.
--- NOTE | 2019-12-06 20:53 | NUR ---
PT OFF UNIT IN RADIOLOGY AT THIS TIME.
[2019-12-06 21:19] VITALS: BP 105/75
[2019-12-06 22:32] VITALS: BP 127/71
[2019-12-06 23:14] LABS: URINE AMPHETAMINES < 1000 (1000ng/ml); URINE BARBITURATES < 200 (200ng/ml); URINE BENZODIAZEPINES < 200 (200ng/ml); URINE CANNABINOIDS (THC) < 50 (50ng/ml); URINE COCAINE < 300 (300ng/ml); URINE METHADONE < 300 (300ng/ml); URINE OPIATES < 300 (300ng/ml); URINE PHENCYCLIDINE < 25 (25ng/ml)
--- NOTE | 2019-12-06 23:39 | NUR ---
RESIDENT OSMAN MARSH AT BEDSIDE TO SPEAK WITH PT AND ADVISES THIS RN SHE SAW A POSSIBLE BEDBUG.
[2019-12-06 23:50] LABS: ACETAMINOPHEN (TYLENOL) < 5.0 ug/ml (10-30); THYROID STIM HORMONE (HS) 0.121 uIU/ml (0.358-4.75)
--- NOTE | 2019-12-07 00:08 | NUR ---
PT TAKEN TO [facility] ROOM AND SHOWERED.BELONGINGS PLACED IN DOUBLE BAGGED YELLOW INFECTIOUS BAG AND LABELED.
[2019-12-07] MEDS ORDERED: BUSPAR5 MG PO (00:13)
--- NOTE | 2019-12-07 00:14 | NUR ---
A 54, admitted to , under the services of NESHA Vizcanio DO with a diagnosis of DIZZINESS/ ETOH ABUSE. Chief complaint is DIZZINESS. Patient arrived via bed from ER. Monitor applied. Initial assessment completed. Vital signs taken and recorded. NESHA VIZCAINO DO notified of admission to the unit. Orders received. See assessment for past medical history, medications and allergies. Patient and/or family oriented to unit. [facility] visitation policy reviewed. Clothing/patient valuable form completed. MYKE LABOY
[2019-12-07 00:15] VITALS: BP 141/99
[2019-12-07] MEDS ORDERED: BUPROPION XL300 MG PO (00:28)
[2019-12-07] MEDS ORDERED: OMEPRAZOLE40 MG PO (00:30)
--- NOTE | 2019-12-07 00:31 | NUR ---
DR. MARSH NOTIFIED OF VERIFIED HOME MEDICATIONS.
[2019-12-07 05:55] LABS: BASO % 0.6 % (0.0-1.0); EOS # 0.3 10*3/uL (0.0-0.4); HEMATOCRIT 36.1 % (42.0-52.0); HEMOGLOBIN 12.2 g/dl (14.0-18.0); LYMPH # 0.9 10*3/uL (1.3-4.4); LYMPH % 18.3 % (27.0-41.0); MEAN CELL VOLUME 106.8 fl (80.0-94.0); MEAN CORPUSCULAR HGB 36.1 pg (27.0-31.0); MEAN CORPUSCULAR HGB CONC 33.8 g/dl (33.0-37.0); MEAN PLATELET VOLUME 12.5 fl (9.6-12.3); MONO # 0.7 10*3/uL (0.1-1.0); MONO % 14.7 % (3.0-9.0); NEUT # 2.8 10*3/uL (2.3-7.9); PLATELET COUNT AUTOMATED 82 10*3/uL (130-400); RED BLOOD COUNT 3.38 10*6/uL (4.50-5.90); WHITE BLOOD COUNT 4.6 10*3/uL (4.8-10.8)
[2019-12-07 06:07] LABS: BUN 16 mg/dl (7-24); CHLORIDE 109 mmol/L (98-107); CREATININE 0.98 mg/dL (0.70-1.30); PHOSPHOROUS 4.4 mg/dL (2.5-4.9); POTASSIUM 3.8 mmol/L (3.5-5.1); SODIUM 139 mmol/L (136-145)
[2019-12-07 06:26] LABS: ACT PARTIAL THROMBO TIME 32.3 SECONDS (20.0-32.1); INTERNATIONAL NORM RATIO 1.1 (2.0-3.5)
--- NOTE | 2019-12-07 07:20 | NUR ---
PT RESTING IN BED. NO COMPLAINTS AT THIS TIME. ASSESSMENT COMPLETE. REPIRATIONS EASY AND REGULAR. CALL LIGHT IN REACH. WILL MONITOR.
[2019-12-07 08:00] VITALS: BP 148/82
[2019-12-07 11:58] VITALS: BP 134/98
--- NOTE | 2019-12-07 14:51 | NUR ---
PT RESTING IN BED. NO COMPLAINTS AT THIS TIME. RESPIRATIONS EASY AND REGULAR. CALL LIGHT WITHIN REACH. WILL CONTINUE TO MONITOR.
--- NOTE | 2019-12-07 15:07 | NUR ---
24 HR chart check completed.
[2019-12-07 16:00] VITALS: BP 153/96
[2019-12-07 16:30] VITALS: BP 146/88
[2019-12-07 18:22] LABS: BILIRUBIN NEGATIVE (NEGATIVE); BLOOD NEGATIVE (NEGATIVE); CLARITY SL CLOUDY (CLEAR); COLOR YELLOW (YELLOW); GLUCOSE NEGATIVE (NEGATIVE); KETONE NEGATIVE (NEGATIVE); LEUKO ESTERASE NEGATIVE (NEGATIVE); NITRITE NEGATIVE (NEGATIVE); SPECIFIC GRAVITY 1.015 (1.005-1.030); UROBILINOGEN 0.2 E.U./dl (0.2-1.0)
[2019-12-07 18:29] LABS: BACTERIA 1+; EPITHELIAL CELLS 0-2; RBC 0-2 rbc/hpf (0-2); WBC 0-2 wbc/hpf (0-5)
--- NOTE | 2019-12-07 19:56 | NUR ---
ORTHO'S DONE ON PATIENT WERE NEGATIVE. PATIENT RESTING IN BED QUIETLY. NO DISTRESS NOTED. PATIENT DENIES ANY PAIN. CALL LIGHT WITHIN REACH. WILL CONTINUE TO MONITOR.
[2019-12-07 20:00] VITALS: BP 132/85
[2019-12-08] VITALS: BP 138/91
--- NOTE | 2019-12-08 00:10 | NUR ---
PATIENT HAD DUPLICATE ORDER OF ATIVAN SCHEDULED FOR 0000. RETIMED SECOND TAPER TO START AT 0600 PER ORDER.
[2019-12-08 06:17] LABS: HEMATOCRIT 33.8 % (42.0-52.0); HEMOGLOBIN 11.5 g/dl (14.0-18.0); MEAN CORPUSCULAR HGB 36.1 pg (27.0-31.0); MEAN PLATELET VOLUME 12.7 fl (9.6-12.3); PLATELET COUNT AUTOMATED 86 10*3/uL (130-400); RED BLOOD COUNT 3.19 10*6/uL (4.50-5.90); RED CELL DISTRI WIDTH 14.7 % (0-14.5); WHITE BLOOD COUNT 9.7 10*3/uL (4.8-10.8)
[2019-12-08 06:43] LABS: BUN 17 mg/dl (7-24); CHLORIDE 107 mmol/L (98-107); CREATININE 0.96 mg/dL (0.70-1.30); SODIUM 137 mmol/L (136-145)
[2019-12-08 07:15] LABS: PLATELET SUFFICIENCY LOW (NORMAL); POLYCHROMASIA SLIGHT; TOTAL CELLS COUNTED 100 #CELLS
[2019-12-08 07:16] LABS: TARGET CELLS FEW
--- NOTE | 2019-12-08 07:20 | NUR ---
PT RESTING IN BED. NO COMPLAINTS AT THIS TIME. BED ALARM ON. ASSESSMENT COMPLETE. RESPIRATIONS EASY AND REGULAR. CALL LIGHT WITHIN REACH. WILL CONTINUE TO MONITOR.
--- NOTE | 2019-12-08 07:24 | NUR ---
NOTIFIED PHARMACY THAT PATIENT'S ATIVAN TAPER NEEDED VERIFIED. [facility] HAD PUT IN A DUPLICATE ORDER FOR ATIVAN AT 0000 AND IT HAD TO BE RETIMED FOR 0600 TODAY.
--- NOTE | 2019-12-08 07:34 | NUR ---
Occupational THerapy: Screen and referral received for occupational therapy evaluation. Thank you, Shaneka Lim OTR/L
--- NOTE | 2019-12-08 07:43 | NUR ---
PHYSICAL THERAPY Screen and PT eval received will follow thank you Priscila Herbert PT
--- NOTE | 2019-12-08 07:44 | NUR ---
PATIENT BP 168/100. DENIES DIZZINESS OR HEADACHE. NEUROS INTACT EXCEPT FOR SLIGHT TREMORS IN HANK HANDS AND ANXIETY. ATIVAN GIVEN SCHEDULED. LOPRESSOR 50MG GIVEN EARLY. FLOOR NURSE AWARE. GENARO CAPUTO
[2019-12-08 08:00] VITALS: BP 168/100
--- NOTE | 2019-12-08 08:00 | NUR ---
VITALS AND ASSESSMENT COMPLETED AND DOCUMENTED. PATIENT TOLERATED WELL. PATIENT IN BED EATING BREAKFAST AND WATCHING TV. DENIES ANY PAIN. GENARO HUTCHINSON SPNRCC
--- NOTE | 2019-12-08 08:33 | NUR ---
MANUAL BP 168/100. PATIENT DENIES DIZZINESS OR HEADACHE. NEUROS INTACT EXCEPT FOR INCREASE IN ANXIETY AND SLIGHT TREMORS OF HANK HANDS. ATIVAN GIVEN SCHEDULED. LOPRESSOR 50MG PO GIVEN EARLY. FLOOR NURSE AWARE. GENARO CAPUTO
[2019-12-08 09:00] VITALS: BP 138/86
--- NOTE | 2019-12-08 09:00 | NUR ---
Record Center Specialist in to talk to patient. Patient states lives at home with alone. There are no steps in the home. Physician: baldemar tyson [facility]acy[facility] Home health services: none Patient's level of ADLs: MINIMAL ASSIST Patient has working utilities: all working DME: none Follow-up physician's appointment after d/c: will be made by hospitalist nurse director upon discharge Does patient want to access PORTAL?: no Discharge plan discussed with patient, he states he lives at home alone, he states he is normally independent in adls and ambulation, but sometimes has difficulty ambulation, he stated he was getting a cane to use when needed, discussed with him a short term [place] [facility] facility for rehab prior to returning home, he was not receptive to this, stated he did not want to go to a SNF and would be returning home, also discussed with him [facility] and he declines any home services at this time, case management will follow. SALMA BANEGAS
--- NOTE | 2019-12-08 09:00 | NUR ---
PTS BP 138/86 ON RECHECK. PT RESTING IN BED WITH NO COMPLAINTS.
--- NOTE | 2019-12-08 09:00 | NUR ---
REASSESSED PATIENTS BP AFTER 1 HOUR. BP WAS 138/86 GENARO CASTILLO
--- NOTE | 2019-12-08 09:16 | NUR ---
Occupational Therapy evaluation completed on the 4th floor with full eval to follow. Precautions: IV site/pole, bed alarm, syncope. Low complexity level. Recommend: may benefit from SNF, if not agreeable home health with OT Thank you for this referral, Shaneka Lim OTR/L
--- NOTE | 2019-12-08 09:19 | NUR ---
Occupational Therapy evaluation completed on the 4th floor with full eval to follow. Precautions: IV site/pole, bed alarm, syncope. Low complexity level. Recommend: Home with supports as needed for ADLs/IADLs, OT if patient agreeable. Thank you for this referral, Shaneka Lim OTR/L
--- NOTE | 2019-12-08 10:16 | NUR ---
PATIENT SLEEPING IN BED. NO COMPLAINTS AT THIS TIME. GENARO HUTCHINSON SPNRCC
[2019-12-08 12:00] VITALS: BP 140/88
--- NOTE | 2019-12-08 12:31 | NUR ---
PATIENT COMFORTABLE IN BED VISITING WITH FAMILY. PATIENT HAS NO COMPLAINTS AT THIS TIME. GENARO HUTCHINSON [facility]
--- NOTE | 2019-12-08 13:34 | NUR ---
PATIENTS VITALS AND ASSESSMENT COMPLETED AND DOCUMENTED. PT TOLERATED WELL. PATIENT IN BED WATCHING TV. NO COMPLAINTS AT THIS TIME. REPORT GIVEN TO SIDNEY. GENARO HUTCHINSON SPBELKYSCC
--- NOTE | 2019-12-08 15:00 | NUR ---
PHYSICAL THERAPY Mel completed moderate level of complexity 23568 would benefit from SNF prior to home pt was dizzy/orthostatic having LOB with standing using urinal. Spoke with nsg reg BP's. Full report to follow PT to work on transfers, amb and strengthening. Priscila Herbert PT
[2019-12-08 16:00] VITALS: BP 129/83
[2019-12-08 20:00] VITALS: BP 151/100
--- NOTE | 2019-12-08 22:00 | NUR ---
24 HOUR CHART CHECK COMPLETE
--- NOTE | 2019-12-08 22:15 | NUR ---
PATIENT BED ALARM SOUNDING AND UPON ENTERING THE ROOM PATIENT WAS NOTED SITTING ON THE END OF THE BED ATTEMPTING TO GET OUT OF BED TO AMBULATE TO THE CLOSET FOR A CAN OF POP. UPON STANDING IT WAS NOTED THAT THE PATIENT WAS VERY UNSTEADY AND FELL BACKWARDS ONTO THE BED WITHOUT INJURY. PATIENT DID AMBULATE TO THE CLOSET AND RETRIEVED HIS CAN OF POP, A ORNAMENTAL METAL ERECTOR AND CIGAR AND STATED THAT HE WAS "GOING OUTSIDE AND SMOKE A CIGAR AND WOULD BE RIGHT BACK IN", ADVISED THE PATIENT THAT HE COULD NOT LEAVE THE FLOOR AND THAT THIS WAS A NON-SMOKING FACILITY. PATIENT BECAME VERBALLY BELLIGERENT AND STATED THAT "I CAN DO WHATEVER I FUCKING WANT TO SO I'LL JUST GOD DAM[facility] LEAVE THIS [facility] AND WALK TO MY COUSIN'S BEH[facility] THE [facility]". SPOKE WITH PATIENT ABOUT HOW UNSTEADY HE WAS JUST NOW WHEN WALKING IN THE ROOM AND THAT IF HE WAS INTENDING TO LEAVE THAT HE NEEDED TO CALL AND HAVE SOMEONE COME AND PICK HIM UP SINCE HE WAS UNSTEADY WHEN WALKING. PATIENT PROCEEDED TO GET BACK INTO BED AND COVER HIMSELF UP AND STATED "I'LL STAY UNTIL THE MORNING THEN I'M OUT OF HERE." BED ALARM PLACED BACK ON AND CALL LIGHT WITHIN REACH, ADVISED PATIENT TO PLEASE CALL FOR ASSISTANCE IF HE NEEDED TO GO TO THE BATHROOM OR CLOSET SINCE HE WAS UNSTEADY. WILL CONTINUE TO MONITOR.
[2019-12-09] VITALS (7 sets, daily range): BP systolic 128–171; BP diastolic 88–101
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
--- NOTE | 2019-12-09 03:25 | NUR ---
PATIENT RESTLESS AND AGITATED WITH SLURRED SPEECH AND TREMORS. PATIENT REPEATEDLY TRYING TO GET OUT OF BED AND PULL OUT IV SITE. IV ATIVAN GIVEN 3 TIMES SO FAR EVERY 15 MINUTES [facility] PATIENT PLACED IN SOFT RESTRAINTS TO PREVENT HARM TO SELF AND OTHERS. PATIENT IN DIRECT LINE OF SIGHT. WILL CONTINUE TO MONITOR.
--- NOTE | 2019-12-09 05:36 | NUR ---
IV ATIVAN GIVEN, PATIENT STARTING TO THRASH IN BED AND STARTING TO YELL AT STAFF AND IS HAVING VISUAL HALLUCINATIONS OF VARIOUS FAMILY MEMBERS IN THE ROOM. WILL CONTINUE TO MONITOR AND REASSESS. PATIENT RESPIRATIONS HAVE INCREASED AND FREQUENCY AND SOUND LABOROUS AT THIS TIME. 2L NC PLACED ON PT AT THIS TIME.
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
--- NOTE | 2019-12-09 07:51 | NUR ---
Patient was evaluated when admitted to the fourth floor. Patient has since been transferred to the ICCU. Will need new orders for the patient when medically appropriate. Thank you. Alexa Palafox, OTR/L
--- NOTE | 2019-12-09 10:30 | NUR ---
PT HAS BEEN RESTING QUIETLY SINCE BEING MEDICATED WITH ATIVAN AT 0852. SOFT WRIST RESTRAINTS REMAIN ON. NO ANKLE RESTRAINTS AT THIS TIME. WILL CONTINUE TO MONITOR CLOSELY. IN CONSTANT VIEW OF ICCU STAFF.
--- NOTE | 2019-12-09 10:41 | NUR ---
PHYSICAL THERAPY [facility] in [facility] status, will required new orders for PT when medically stable, thank you Priscila Herbert PT
--- NOTE | 2019-12-09 11:23 | NUR ---
PT RESTRAINTS UNSTRAPPED FROM BED AND PT GIVEN FULL LINEN CHANGE DUE TO INCONTINENT CARE. 4 STAFF MEMBERS NEEDED TO KEEP PT FROM HITTING AND KICKING WHILE LINENS BEING CHANGED. BILATERAL WRIST RESTRAINTS REAPPLIED.
--- NOTE | 2019-12-09 13:22 | NUR ---
PT BECOMING MORE RESTLESS AND AGITATED. TRYING TO GET OUT OF BED. RAMBLING INCOHERENTLY. HALLUCINATING ABOUT BEING AT THE RACES RIGHT NOW. ATIVAN 1MG IV GIVEN AT THIS TIME.
--- NOTE | 2019-12-09 13:52 | NUR ---
PT RESTING QUIETLY IN BED SINCE ATIVAN 1MG IV GIVEN.
--- NOTE | 2019-12-09 22:54 | NUR ---
PATIENT AGITATED, YELLING, ATTEMPTING TO GET OUT OF BED, SWEARING AND SAYING THAT HE IS LEAVING. PATIENT HAS VISIBLE TREMORS TO THE HANDS AND LEGS. MEDICATED WITH ATIVAN PER DRS ORDERS. WILL MONITOR
--- NOTE | 2019-12-09 23:49 | NUR ---
EARLIER MEDICATION WAS NOT EFFECTIVE, PATIENT CONTINUES TO TREMOR AND ACT AGITATED. PULLLING AT WRIST RESTRAINTS AND KICKING LEGSABOUT IN BED.
[2019-12-10] VITALS: BP 166/80
--- NOTE | 2019-12-10 02:30 | NUR ---
PATIENT MEDICATED WITH ATIVAN PER DRS ORDERS FOR TREMORS TO THE BILATERAL HANDS, AND INCREASED AGITATION. PATIENT IS YELLING OUT AND PULLING AT WRIST RESTRAINTS. COLLEEN YI
[2019-12-10 04:00] VITALS: BP 154/82
--- NOTE | 2019-12-10 04:30 | NUR ---
Patient resting quietly with no c/o discomfort. Respirations easy and regular. Vital signs stable. No overt distress. EARLIER MEDICATION SEEMS EFFECTIVE YARON CORDERO
[2019-12-10 05:32] LABS: ALKALINE PHOSPHATASE 66 U/L (45-117); BUN 19 mg/dl (7-24); CHLORIDE 106 mmol/L (98-107); CREATININE 0.99 mg/dL (0.70-1.30); POTASSIUM 3.7 mmol/L (3.5-5.1); SGOT/AST 15 IU/L (3-35); SGPT/ALT 20 U/L (12-78); SODIUM 139 mmol/L (136-145); TOTAL PROTEIN 6.9 gm/dL (6.4-8.2)
[2019-12-10 06:16] LABS: HEMATOCRIT 39.1 % (42.0-52.0); HEMOGLOBIN 13.3 g/dl (14.0-18.0); MEAN CELL VOLUME 107.1 fl (80.0-94.0); MEAN CORPUSCULAR HGB 36.4 pg (27.0-31.0); MEAN PLATELET VOLUME 12.6 fl (9.6-12.3); RED BLOOD COUNT 3.65 10*6/uL (4.50-5.90); RED CELL DISTRI WIDTH 15.1 % (0-14.5); WHITE BLOOD COUNT 8.3 10*3/uL (4.8-10.8)
[2019-12-10 06:19] LABS: PLATELET COUNT AUTOMATED 113 10*3/uL (130-400)
[2019-12-10 06:42] LABS: PLATELET SUFFICIENCY LOW (NORMAL); TARGET CELLS FEW; TOTAL CELLS COUNTED 100 #CELLS
[2019-12-10 06:43] LABS: POLYCHROMASIA SLIGHT
--- NOTE | 2019-12-10 07:37 | NUR ---
MEDICATED WITH ATIVAN FOR INCREASED RESTLESSNESS, REQUESTING BEER, AND ARGUING THAT HE IS NOT AT THE HOSPITAL
--- NOTE | 2019-12-10 07:37 | NUR ---
May convert patient to PO antibiotics if clinically feasible - all criteria met for IV to PO conversion. Thanks, Yusuf Garcia, PharmD, [facility]
[2019-12-10 08:00] VITALS: BP 153/98
--- NOTE | 2019-12-10 08:30 | NUR ---
RESTRAINTS DISCONTINUED AT THIS TIME. PATIENT ALERT AND ORIENTED. BEING COOPERATIVE AT THIS TIME. WILL CONTINUE TO MONITOR.
--- NOTE | 2019-12-10 11:50 | NUR ---
PATIENT MEDICATED WITH ATIVAN PO PER PRN ORDER. PATIENT ANXIOUS. WILL CONTINUE TO MONITOR.
[2019-12-10 12:00] VITALS: BP 105/81
[2019-12-10 16:00] VITALS: BP 103/74; BP 95/59
[2019-12-10 20:00] VITALS: BP 109/79
--- NOTE | 2019-12-10 21:04 | NUR ---
BECOMING MORE RESTLESS. STATES " I'VE GOTTA GO. MY BROTHER'S HERE TO TAKE ME HOME." ALERT TO SELF AND PLACE. ATIVAN 1MG PO GIVEN FOR AGITATION. WILL MONITOR. BED ALARM INTACT.
--- NOTE | 2019-12-10 21:46 | NUR ---
0 REMAINS RESTLESS AND TRYING TO GET OOB. ATIVAN 1MG IV FOR THIS. WILL MONITOR.
[2019-12-11] VITALS: BP 128/94
--- NOTE | 2019-12-11 00:35 | NUR ---
EARLIER MEDS WERE EFFECTIVE. RESTING IN BED WITH EYES CLOSED. APPEARS TO BE SLEEPING. BED ALARM INTACT. NO DISTRESS NOTED.
--- NOTE | 2019-12-11 01:30 | NUR ---
UP TO BSC WITH 2 ASSISTS FOR LARGE BM HARD STOOL. INCONTINENT OF LARGE AMOUNT URINE. ADULT DIAPER CHANGED. BACK TO BED. CALL LIGHT IN REACH. BOXED LUNCH OBTAINED FOR PT PER REQUSET. BED ALARM INTACT.
[2019-12-11 04:00] VITALS: BP 125/91
--- NOTE | 2019-12-11 04:27 | NUR ---
RESTING IN BED WITH EYES CLOSED. APPEARS TO BE SLEEPING. NO VISIBLE DISTRESS NOTED.
[2019-12-11 05:25] LABS: ALBUMIN 2.7 gm/dl (3.1-4.5); ALKALINE PHOSPHATASE 64 U/L (45-117); CHLORIDE 108 mmol/L (98-107); CREATININE 1.43 mg/dL (0.70-1.30); POTASSIUM 3.5 mmol/L (3.5-5.1); SGOT/AST 16 IU/L (3-35); SGPT/ALT 25 U/L (12-78); SODIUM 140 mmol/L (136-145); TOTAL PROTEIN 6.5 gm/dL (6.4-8.2)
[2019-12-11 05:27] LABS: BUN 42 mg/dl (7-24)
--- NOTE | 2019-12-11 06:13 | NUR ---
REMAINS SLEEPING WITHOUT DISTRESS. CONDITION GUARDED.
[2019-12-11 06:43] LABS: BASO % 0.1 % (0.0-1.0); EOS # 0.2 10*3/uL (0.0-0.4); EOS % 1.9 % (1.0-4.0); HEMATOCRIT 39.6 % (42.0-52.0); HEMOGLOBIN 13.2 g/dl (14.0-18.0); LYMPH # 0.6 10*3/uL (1.3-4.4); MEAN CELL VOLUME 109.1 fl (80.0-94.0); MEAN CORPUSCULAR HGB 36.4 pg (27.0-31.0); MEAN CORPUSCULAR HGB CONC 33.3 g/dl (33.0-37.0); MEAN PLATELET VOLUME 12.5 fl (9.6-12.3); MONO # 1.3 10*3/uL (0.1-1.0); NEUT # 7.2 10*3/uL (2.3-7.9); NEUT % 77.5 % (47.0-73.0); RED BLOOD COUNT 3.63 10*6/uL (4.50-5.90); RED CELL DISTRI WIDTH 15.3 % (0-14.5); WHITE BLOOD COUNT 9.3 10*3/uL (4.8-10.8)
[2019-12-11 06:47] LABS: PLATELET COUNT AUTOMATED 158 10*3/uL (130-400)
[2019-12-11 07:04] LABS: PLATELET SUFFICIENCY NORMAL (NORMAL); TOTAL CELLS COUNTED 100 #CELLS
[2019-12-11 08:00] VITALS: BP 138/108
--- NOTE | 2019-12-11 08:07 | NUR ---
Patients full referral faxed to Mirela fabian [facility] for review as a back up plan.
--- NOTE | 2019-12-11 08:20 | NUR ---
PT MEDICATED WITH VISTARIL FOR C/O ANXIETY.
--- NOTE | 2019-12-11 09:21 | NUR ---
PT CALM AND COOPERATIVE AT THIS TIME. STATED VISTARIL WAS EFFECTIVE IN EASING HIS ANXIETY. ATE 100% ON BREAKFAST THIS AM.
--- NOTE | 2019-12-11 10:26 | NUR ---
DR VERDE IN TO SEE PT. PT'S HEART RATE GOING UP TO 130'S AT TIMES. ATIVAN 1MG PO GIVEN PER ORDER OF DR VERDE.
--- NOTE | 2019-12-11 11:16 | NUR ---
PT RESTING QUIETLY WITH EYES CLOSED AT THIS TIME. HEART RATE 104.
[2019-12-11 11:40] VITALS: BP 119/86
[2019-12-11 16:00] VITALS: BP 119/81
[2019-12-11 20:00] VITALS: BP 119/85
--- NOTE | 2019-12-11 20:09 | NUR ---
1944 RESTING IN BED WITH HOB ELEVATED. SIDE RAILS UP X'S 2. CALL LIGHT IN REACH. PT IS ALERT AND PLEASANT AT PRESENT TIME. PULSE OX 97% ON RA. NO DISTRESS NOTED. NO C/O'S VOICED AT PRESENT. HEP LOCK INTACT. BED ALARM INTACT. URINAL AT BEDSIDE.
--- NOTE | 2019-12-11 21:45 | NUR ---
2130 VISTARIL PO GIVEN FOR ANXIETY AND ATIVAN PO GIVEN FOR SLEEP. WILL MONITOR.
[2019-12-12] VITALS (7 sets, daily range): BP systolic 123–164; BP diastolic 90–122
--- NOTE | 2019-12-12 00:31 | NUR ---
EARLIER MEDS SOMEWHAT EFFECTIVE. NO DISTRESS NOTED.
--- NOTE | 2019-12-12 04:38 | NUR ---
REMAINS SLEEPING WITHOUT DISTRESS.
[2019-12-12 05:55] LABS: BUN 40 mg/dl (7-24); CHLORIDE 111 mmol/L (98-107); CREATININE 1.31 mg/dL (0.70-1.30); POTASSIUM 4.3 mmol/L (3.5-5.1); SODIUM 142 mmol/L (136-145)
[2019-12-12 06:05] LABS: HEMATOCRIT 38.8 % (42.0-52.0); MEAN CORPUSCULAR HGB 36.5 pg (27.0-31.0); MEAN CORPUSCULAR HGB CONC 33.5 g/dl (33.0-37.0); MEAN PLATELET VOLUME 11.5 fl (9.6-12.3); PLATELET COUNT AUTOMATED 188 10*3/uL (130-400); RED BLOOD COUNT 3.56 10*6/uL (4.50-5.90); RED CELL DISTRI WIDTH 14.8 % (0-14.5); WHITE BLOOD COUNT 9.8 10*3/uL (4.8-10.8)
--- NOTE | 2019-12-12 06:05 | NUR ---
REMAINS SLEEPING WITHOUT DISTRESS. HEP LOCK INTACT. CONDITION GUARDED.
[2019-12-12 07:31] LABS: TOTAL CELLS COUNTED 100 #CELLS
[2019-12-12 07:32] LABS: PLATELET SUFFICIENCY NORMAL (NORMAL)
--- NOTE | 2019-12-12 08:00 | NUR ---
BETA KEVIN GIVEN EARLY ALONG WITH PO ATIVAN DUE TO PT'S BLOOD PRESSURE ELEVATED AT 160/120 AND ANXIETY.
--- NOTE | 2019-12-12 09:00 | NUR ---
DR BOND IN TO SEE PT AND MADE AWARE OF PT'S HYPERTENSION.
--- NOTE | 2019-12-12 10:09 | NUR ---
BP DOWN TO 136/101 AT THIS TIME. HR 108 ATRIAL FIB.
--- NOTE | 2019-12-12 11:55 | NUR ---
PHYSICAL THERAPY Re-Eval completed moderate level of complexity 76142 continue to recomend SNF at discharge PT to work on tranfers,amb,balance,safety Priscila Herbert PT
--- NOTE | 2019-12-12 14:15 | NUR ---
Occupational Therapy evaluation completed in ICCU with full eval to follow. Recommend OT per POC and SNF to enable safe return home alone. Thank you for this referral. Jasmin Fernandez OTR/L
--- NOTE | 2019-12-12 18:08 | NUR ---
[facility] WITHOUT DIFFICULTY. REPORT RECIEVED FROM BENNY LUCIANO RN.
--- NOTE | 2019-12-12 20:10 | NUR ---
PT RESTING IN BED. RESP-EASY AND FEGULAR. NO C/O AT THIS TIME. CALL LIGHT IN REACH. SEE SHIFT ASSESSMENT.
--- NOTE | 2019-12-12 22:00 | NUR ---
RESTING IN BED. TOLERATED ROUTINE MED WITH NO PROBLEM. NO C/O AT THIS TIME. CALL LIGHT IN REACH.
--- NOTE | 2019-12-13 00:15 | NUR ---
PT RESTING IN BED. RESP-EASY AND REGULAR. NO C/O AT THIS TIME. CALL LIGHT IN REACH. SEE SHIFT ASSESSMENT.
[2019-12-13 00:50] VITALS: BP 132/84
--- NOTE | 2019-12-13 05:30 | NUR ---
TOLERATED ROUTINE MED. NO C/O AT THIS TIME. CALL LIGHT IN REACH.
[2019-12-13 07:29] LABS: BUN 41 mg/dl (7-24); CHLORIDE 108 mmol/L (98-107); POTASSIUM 3.8 mmol/L (3.5-5.1); SODIUM 139 mmol/L (136-145)
[2019-12-13 07:32] LABS: CREATININE 1.09 mg/dL (0.70-1.30)
[2019-12-13 08:00] VITALS: BP 137/98
[2019-12-13] MEDS ORDERED: MECLIZINE HYD12.5 MG PO (09:57)
[2019-12-13] MEDS ORDERED: SYNTHROID,LEV175 MCG PO (09:57)
--- NOTE | 2019-12-13 11:46 | NUR ---
Discharge instructions reviewed with patient/family. Patient receptive and verbalizes understanding. Follow-up care arranged. Written instructions given to patient/family. HEPLOCK AND PARCEL POST CARRIER DISCONTINUED. TERESSA MELENDEZ
== END 2019-12-13 11:46 | disposition home or self-care (01) | DRG 720 ==
LOC: ED 17:55 → ICCU 23:27 → EDHOLD 23:27 → 4E 23:27 → ICCU 12-09 02:34 → 5E 12-12 18:15
PROVIDERS: Emergency Medicine; Emergency Medicine Emergency Medical Services; Family Medicine; Internal Medicine; Student in an Organized Health Care Education/Training Program; ADMIT Internal Medicine
DX: A41.9 Sepsis, unspecified organism (principal); J18.9 Pneumonia, unspecified organism; J44.1 Chronic obstructive pulmonary disease with (acute) exacerbation; E87.1 Hypo-osmolality and hyponatremia; F10.231 Alcohol dependence with withdrawal delirium; F10.229 Alcohol dependence with intoxication, unspecified; Y90.9 Presence of alcohol in blood, level not specified; J44.0 Chronic obstructive pulmonary disease with (acute) lower respiratory infection; E83.42 Hypomagnesemia; F33.1 Major depressive disorder, recurrent, moderate; I10 Essential (primary) hypertension; E53.8 Deficiency of other specified B group vitamins; I25.10 Atherosclerotic heart disease of native coronary artery without angina pectoris; M19.90 Unspecified osteoarthritis, unspecified site; M85.80 Other specified disorders of bone density and structure, unspecified site; I48.21 Permanent atrial fibrillation; F17.210 Nicotine dependence, cigarettes, uncomplicated; D53.9 Nutritional anemia, unspecified; F41.9 Anxiety disorder, unspecified; G47.00 Insomnia, unspecified; E87.8 Other disorders of electrolyte and fluid balance, not elsewhere classified; K57.90 Diverticulosis of intestine, part unspecified, without perforation or abscess without bleeding; E89.0 Postprocedural hypothyroidism; Z85.89 Personal history of malignant neoplasm of other organs and systems; Z71.6 Tobacco abuse counseling; Z79.899 Other long term (current) drug therapy; Z83.79 Family history of other diseases of the digestive system; Z83.49 Family history of other endocrine, nutritional and metabolic diseases; N17.0 Acute kidney failure with tubular necrosis

== ENCOUNTER 2019-12-15 20:50 | Emergency (ER) | payer OTHER ==
[~2019-12-15] VITALS: Ht 175.2 cm; Wt 78.0 kg
[~2019-12-15 20:50] MED LIST changes: +BUPROPION XL300 MG PO; +MECLIZINE HYD12.5 MG PO; +OMEPRAZOLE40 MG PO; +SYNTHROID,LEV175 MCG PO
[2019-12-15 21:35] LABS: HEMATOCRIT 41.8 % (42.0-52.0); HEMOGLOBIN 14.1 g/dl (14.0-18.0); MEAN CELL VOLUME 109.4 fl (80.0-94.0); MEAN CORPUSCULAR HGB 36.9 pg (27.0-31.0); MEAN CORPUSCULAR HGB CONC 33.7 g/dl (33.0-37.0); MEAN PLATELET VOLUME 10.8 fl (9.6-12.3); PLATELET COUNT AUTOMATED 311 10*3/uL (130-400); RED BLOOD COUNT 3.82 10*6/uL (4.50-5.90); RED CELL DISTRI WIDTH 14.7 % (0-14.5); WHITE BLOOD COUNT 10.4 10*3/uL (4.8-10.8)
[2019-12-15 21:46] LABS: ACT PARTIAL THROMBO TIME 31.9 SECONDS (20.0-32.1); INTERNATIONAL NORM RATIO 1.1 (2.0-3.5)
[2019-12-15 21:51] LABS: ALBUMIN 3.2 gm/dl (3.1-4.5); ALKALINE PHOSPHATASE 92 U/L (45-117); BUN 26 mg/dl (7-24); CHLORIDE 106 mmol/L (98-107); CREATININE 1.24 mg/dL (0.70-1.30); POTASSIUM 3.8 mmol/L (3.5-5.1); SGOT/AST 30 IU/L (3-35); SGPT/ALT 59 U/L (12-78); SODIUM 138 mmol/L (136-145); TOTAL PROTEIN 7.7 gm/dL (6.4-8.2)
[2019-12-15 21:52] LABS: TROPONIN I < 0.015 ng/ml (<0.045)
[2019-12-15 21:57] LABS: PLATELET SUFFICIENCY NORMAL (NORMAL); TOTAL CELLS COUNTED 100 #CELLS
[2019-12-16 08:00] VITALS: BP 134/90
== END 2019-12-16 10:43 | disposition left against medical advice (07) ==
LOC: ED 20:50
PROVIDERS: Emergency Medicine
DX: R62.7 Adult failure to thrive (principal); R06.02 Shortness of breath; R42 Dizziness and giddiness; I48.91 Unspecified atrial fibrillation; I25.10 Atherosclerotic heart disease of native coronary artery without angina pectoris; J44.9 Chronic obstructive pulmonary disease, unspecified; I10 Essential (primary) hypertension; E03.9 Hypothyroidism, unspecified; M19.90 Unspecified osteoarthritis, unspecified site; M85.80 Other specified disorders of bone density and structure, unspecified site; F17.200 Nicotine dependence, unspecified, uncomplicated; Z79.899 Other long term (current) drug therapy

== ENCOUNTER 2020-02-14 21:35 | Inpatient (IN) | payer OTHER ==
[~2020-02-14] VITALS: Ht 175.2 cm; Wt 79.9 kg
[2020-02-14 21:36] VITALS: BP 153/97
--- NOTE | 2020-02-14 21:40 | NUR ---
URINAL PROVIDED, PT AWARE URINE NEEDED FOR COLLECTION
[2020-02-14 21:55] LABS: MEAN CELL VOLUME 101.4 fl (80.0-94.0); MEAN CORPUSCULAR HGB 35.7 pg (27.0-31.0); MEAN CORPUSCULAR HGB CONC 35.2 g/dl (33.0-37.0); MEAN PLATELET VOLUME 12.8 fl (9.6-12.3); PLATELET COUNT AUTOMATED 223 10*3/uL (130-400); RED BLOOD COUNT 4.14 10*6/uL (4.50-5.90); RED CELL DISTRI WIDTH 13.1 % (0-14.5); WHITE BLOOD COUNT 8.5 10*3/uL (4.8-10.8)
[2020-02-14 22:22] LABS: PLATELET SUFFICIENCY NORMAL (NORMAL); TOTAL CELLS COUNTED 100 #CELLS
[2020-02-14 22:28] LABS: ACT PARTIAL THROMBO TIME 36.5 SECONDS (20.0-32.1); INTERNATIONAL NORM RATIO 1.3 (2.0-3.5)
[2020-02-14 22:34] LABS: ALBUMIN 3.2 gm/dl (3.1-4.5); ALKALINE PHOSPHATASE 74 U/L (45-117); BUN 36 mg/dl (7-24); CHLORIDE 95 mmol/L (98-107); CREATININE 2.25 mg/dL (0.70-1.30); POTASSIUM 2.8 mmol/L (3.5-5.1); SGOT/AST 20 IU/L (3-35); SGPT/ALT 25 U/L (12-78); SODIUM 129 mmol/L (136-145); TOTAL PROTEIN 7.3 gm/dL (6.4-8.2); TROPONIN I < 0.015 ng/ml (<0.045)
[2020-02-14 23:30] VITALS: BP 97/60
--- NOTE | 2020-02-14 23:33 | NUR ---
PT RESTING ON CART, URINAL AT BEDSIDE, PT AWARE URINE NEEDED FOR COLLECTION. PT CALL LIGHT IN REACH. DENIES UNMET NEEDS. WILL CONTINUE TO MONITOR.
[2020-02-15] VITALS (7 sets, daily range): BP systolic 100–136; BP diastolic 66–92
[2020-02-15 02:04] LABS: URINE AMPHETAMINES < 1000 (1000ng/ml); URINE BARBITURATES < 200 (200ng/ml); URINE BENZODIAZEPINES < 200 (200ng/ml); URINE CANNABINOIDS (THC) < 50 (50ng/ml); URINE COCAINE < 300 (300ng/ml); URINE METHADONE < 300 (300ng/ml); URINE OPIATES < 300 (300ng/ml)
[2020-02-15 02:05] LABS: URINE PHENCYCLIDINE < 25 (25ng/ml)
[2020-02-15 02:08] LABS: BILIRUBIN NEGATIVE (NEGATIVE); BLOOD TRACE-INTACT (NEGATIVE); CLARITY SL CLOUDY (CLEAR); COLOR YELLOW (YELLOW); GLUCOSE NEGATIVE (NEGATIVE); KETONE NEGATIVE (NEGATIVE); NITRITE NEGATIVE (NEGATIVE); SPECIFIC GRAVITY 1.015 (1.005-1.030); UROBILINOGEN 0.2 E.U./dl (0.2-1.0)
[2020-02-15 02:09] LABS: LEUKO ESTERASE NEGATIVE (NEGATIVE)
[2020-02-15 02:35] LABS: BACTERIA TRACE; HYALINE CAST 41-50
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
--- NOTE | 2020-02-15 05:00 | NUR ---
A 54, admitted to , under the services of JAIME Lawson DO with a diagnosis of NEAR SYNCOPE. Chief complaint is DIZZINESS. Patient arrived via ambulance from ER. Monitor applied. Initial assessment completed. Vital signs taken and recorded. JAIME LAWSON DO notified of admission to the unit. Orders received. See assessment for past medical history, medications and allergies. Patient and/or family oriented to unit. visitation policy reviewed. Clothing/patient valuable form completed. EVER LYNN
[2020-02-15] MEDS ORDERED: Synthroid,Lev200 MCG PO (05:17)
[2020-02-15 06:25] LABS: BASO # 0.1 10*3/uL (0.0-0.1); BASO % 0.7 % (0.0-1.0); EOS # 0.3 10*3/uL (0.0-0.4); EOS % 4.9 % (1.0-4.0); HEMATOCRIT 39.4 % (42.0-52.0); LYMPH # 1.4 10*3/uL (1.3-4.4); LYMPH % 20.5 % (27.0-41.0); MEAN CELL VOLUME 101.3 fl (80.0-94.0); MEAN CORPUSCULAR HGB 35.2 pg (27.0-31.0); MEAN CORPUSCULAR HGB CONC 34.8 g/dl (33.0-37.0); MEAN PLATELET VOLUME 12.7 fl (9.6-12.3); MONO # 1.1 10*3/uL (0.1-1.0); MONO % 15.2 % (3.0-9.0); RED BLOOD COUNT 3.89 10*6/uL (4.50-5.90); WHITE BLOOD COUNT 6.9 10*3/uL (4.8-10.8)
[2020-02-15 06:30] LABS: INTERNATIONAL NORM RATIO 1.2 (2.0-3.5)
[2020-02-15 06:35] LABS: PLATELET COUNT AUTOMATED 112 10*3/uL (130-400)
[2020-02-15 06:39] LABS: BUN 32 mg/dl (7-24); CHLORIDE 100 mmol/L (98-107); CREATININE 1.74 mg/dL (0.70-1.30); PHOSPHOROUS 4.4 mg/dL (2.5-4.9); POTASSIUM 3.1 mmol/L (3.5-5.1); SODIUM 134 mmol/L (136-145)
[2020-02-15 06:41] LABS: TROPONIN I < 0.015 ng/ml (<0.045)
[2020-02-16] VITALS: BP 112/87
[2020-02-16 06:46] LABS: BUN 30 mg/dl (7-24); CHLORIDE 108 mmol/L (98-107); CREATININE 1.24 mg/dL (0.70-1.30); SODIUM 138 mmol/L (136-145)
[2020-02-16 06:48] LABS: POTASSIUM 3.8 mmol/L (3.5-5.1)
[2020-02-16 08:00] VITALS: BP 124/86
--- NOTE | 2020-02-16 08:23 | NUR ---
PHYSICAL THERAPY Screen and PT eval received will follow, thank you. Priscila Herbert PT
--- NOTE | 2020-02-16 09:00 | NUR ---
Retail Beauty Specialist in to talk to patient. Patient states lives at home with alone. There are no steps in the home. Physician: baldemar tyson [facility] Home health services: none Patient's level of ADLs: MINIMAL ASSIST Patient has working utilities: all working DME: none Follow-up physician's appointment after d/c: will be made by hospitalist nurse director upon discharge Does patient want to access PORTAL?: no Discharge plan discussed with patient, he states he lives at home alone, he is independent in adls and doesn't ambulate well, he states he has had several falls over the last few weeks, no ambulatory device used, he doesn't drive but has a corrections caseworker, Paco Olsen, that takes him to doctors appointments and to get groceries. discussed with him a short term [place] [facility] facility for 5 days of rehab prior to returning home, patient was agreeable to this if his insurance will pay for it, he would like to be referred to [facility], brand planner will make referral to [facility] when patient is medically stable for discharge, case management will follow . SALMA BANEGAS
[2020-02-16 12:00] VITALS: BP 110/78
--- NOTE | 2020-02-16 13:15 | NUR ---
Physical Therapy evaluation completed on the fourth floor with full evaluation to follow. Recommend physical therapy per plan of care and SNF upon discharge. Thank you for this referral. Priscila Herbert PT
--- NOTE | 2020-02-16 13:32 | NUR ---
Occupational Therapy evaluation completed on four with full evaluation to follow. Recommend occupational therapy per plan of care and SNF upon discharge. Thank you for this referral. Alexa Palafox OTR/L
[2020-02-16 16:00] VITALS: BP 115/66
[2020-02-16 20:00] VITALS: BP 152/99
[2020-02-17] VITALS: BP 137/88
--- NOTE | 2020-02-17 03:59 | NUR ---
RESTING IN BED WITH EYES CLOSED. NO SIGNS OR SYMPTOMS OF DISTRESS NOTED. RESPIRATIONS REGULAR AND NON-LABORED ON ROOM AIR. BED ALARM ON AND FUNCTIONING. WILL CONTINUE TO MONITOR. CALL LIGHT IN REACH.
[2020-02-17 06:17] LABS: BASO % 0.7 % (0.0-1.0); EOS # 0.2 10*3/uL (0.0-0.4); EOS % 2.7 % (1.0-4.0); HEMATOCRIT 36.1 % (42.0-52.0); LYMPH # 0.8 10*3/uL (1.3-4.4); LYMPH % 13.5 % (27.0-41.0); MEAN CORPUSCULAR HGB 34.6 pg (27.0-31.0); MEAN CORPUSCULAR HGB CONC 33.2 g/dl (33.0-37.0); MEAN PLATELET VOLUME 11.9 fl (9.6-12.3); MONO # 1.2 10*3/uL (0.1-1.0); MONO % 19.3 % (3.0-9.0); NEUT # 3.8 10*3/uL (2.3-7.9); NEUT % 63.1 % (47.0-73.0); PLATELET COUNT AUTOMATED 129 10*3/uL (130-400); RED BLOOD COUNT 3.47 10*6/uL (4.50-5.90); RED CELL DISTRI WIDTH 13.1 % (0-14.5)
--- NOTE | 2020-02-17 07:14 | NUR ---
PRECERT/ACCEPTANCE WOULD BE REQUIRED FOR SNF. PICTURE HANGER FAXED NEW REFERRAL TO [facility].
--- NOTE | 2020-02-17 07:20 | NUR ---
HENS COMPLETED, PENDING ACCEPTANCE/PRECERT FROM [facility].
[2020-02-17 08:00] VITALS: BP 148/90
--- NOTE | 2020-02-17 09:00 | NUR ---
case management visits with patient, he has been referred to [facility] for short term halfway for rehab prior to returning home, he will be discharged to [facility] once accepted and insurance precert has been obtained, case management alysha
--- NOTE | 2020-02-17 09:00 | NUR ---
PT SITTING UP IN BED EATING BREAKFAST. RESP-EASY AND REGULAR. TOLERATED ROUTINE MEDICATIONS WITH NO PROBLEM. NO C/O AT HIS TIME. BED ALARM ON. CALL LIGHT IN REACH. SEE SHIFT ASSESSMENT.
--- NOTE | 2020-02-17 09:50 | NUR ---
PHYSICAL THERAPY Patient seen this am 1:1 for therapy visit and was resting supine in bed upon therapist arrival. Patient identified by name / and reports several bouts of mild dizziness while to the bathroom earlier this morning. Patient also states he seems to feel "out of his body", however unable to clarify this statment. Patient transfers supine to sit EOB MIN A, taking a minute or so to collect himself. Patient performed several sit to stand transfers, MIN A, requiring v/c for proper hand placement, then ambulated with use of wh walker, 15'x 1 to bathroom, CGA x 1. Patient demonstrated unsteady gait pattern, decreased stride and POOR safety awareness in tight bathroom spaces. Patient was not happy with use of AD and needed therapist education on importance of improved safety awareness to decrease risk of falls. Patient ambulated addtional 30'x 1, wh walker, CGA, demonstrating very unsteady 90 / 180 turns and returned to supine in bed with mild fatigue. Patient resting HR was 108 bpm, which increased to 122 bpm during gait ex. Patient remained in bed with call light, tray table, telephone and bed alarm for safety. Will continue per POC as tolerated, total treatment time 19 minutes. Hollis Santos, ISO COORDINATOR
--- NOTE | 2020-02-17 10:02 | NUR ---
OT NOTE Pt was seen this A.M. 1:1 for 25 minute OT session. Upon arrival pt was supine in bed. Pt identified by name and and had complaints of feeling "unsteady and like I am outside my body" however was unable to further explain this statement. Pt transferred supine to sit EOB with SBA and use of bed rail for UE support. Pt was educated on slow rise and visual fixation to decrease risk of becoming dizzy. Pt then completed multiple sit to stand transfers from bed level with Scout and use of w/w for UE support. Challenged pt's static standing tolerance needed for increased I in self care tasks and functional transfers, pt was able to tolerate aprox 2-3 minutes at a time before sitting due to fatigue and stating he felt his knees were going to buckle. Throughout static standing pt presented with R lateral lean and bouts of retrograde LOB that both required Scout to correct. Then challenged pt's static standing balance which he was able to maintain F- standing balance requiring Scout/UE support. Functional mobility was then completed to the bathroom with Scout and use of w/w for UE support. There he transferred on to the standard commode with Scout due to poor safety awareness and off with Scout due to low surface. Functional mobility was then completed back to the EOB with Scout and use of w/w with constant verbal prompts for walker safety. Pt was left supine in bed with call light in hand, tray table in place, and bed alarm activated for safety. Continue with rec D/C plan to SNF. KAYLA Maradiaga
--- NOTE | 2020-02-17 11:01 | NUR ---
PRECERT IS BEING STARTED. PATIENT HAS BEEN ACCEPTED AT [facility]. SNAILER NOTIFIED EMBROIDERY WORKER SALMA.
--- NOTE | 2020-02-17 11:04 | NUR ---
PRECERT IS WAIVED DUE TO PANDEMIC, PATIENT IS ABLE TO GO TO [facility] WHEN MEDICALLY STABLE.
[2020-02-17 11:25] LABS: ALBUMIN 2.7 gm/dl (3.1-4.5); ALKALINE PHOSPHATASE 69 U/L (45-117); BUN 24 mg/dl (7-24); CHLORIDE 107 mmol/L (98-107); CREATININE 1.07 mg/dL (0.70-1.30); PHOSPHOROUS 1.9 mg/dL (2.5-4.9); POTASSIUM 3.2 mmol/L (3.5-5.1); SGOT/AST 12 IU/L (3-35); SGPT/ALT 20 U/L (12-78); SODIUM 143 mmol/L (136-145); TOTAL PROTEIN 6.6 gm/dL (6.4-8.2)
[2020-02-17 12:00] VITALS: BP 127/90
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
[2020-02-17 16:00] VITALS: BP 132/97
--- NOTE | 2020-02-17 16:45 | NUR ---
PT TOLERATED IV MEDICATION. NO C/O AAT THIS TIME. CALL LIGHT INREACH.SEE SHIFT ASSESSMENT.
[2020-02-17 18:24] LABS: POTASSIUM 3.9 mmol/L (3.5-5.1)
[2020-02-17 20:00] VITALS: BP 124/84
--- NOTE | 2020-02-17 22:43 | NUR ---
Patient resting quietly with no c/o discomfort. Respirations easy and regular. Vital signs stable. No overt distress. ALEYDA FAJARDO
--- NOTE | 2020-02-17 23:43 | NUR ---
24 HR chart check completed.
[2020-02-18] VITALS: BP 140/91
[2020-02-18 05:02] LABS: ALKALINE PHOSPHATASE, SERUM 62 IU/L (39-117)
[2020-02-18 06:16] LABS: ALBUMIN 2.5 gm/dl (3.1-4.5); BUN 22 mg/dl (7-24); CHLORIDE 110 mmol/L (98-107); CREATININE 0.94 mg/dL (0.70-1.30); POTASSIUM 3.8 mmol/L (3.5-5.1); SGOT/AST 14 IU/L (3-35); SGPT/ALT 19 U/L (12-78); SODIUM 140 mmol/L (136-145); TOTAL PROTEIN 6.1 gm/dL (6.4-8.2)
[2020-02-18 06:17] LABS: ALKALINE PHOSPHATASE 65 U/L (45-117)
[2020-02-18 07:42] LABS: PHOSPHOROUS 3.7 mg/dL (2.5-4.9)
[2020-02-18 08:00] VITALS: BP 126/94
--- NOTE | 2020-02-18 08:30 | NUR ---
PT SITTING UP IN BED WITH HOB ELEVATED. RESP-EASY AND REGULAR. NO C/O AT THIS TIME. CALL LIGHT IN REACH. SEE SHIFT ASSESSMENT.
--- NOTE | 2020-02-18 10:15 | NUR ---
BLANKET INSPECTOR received notice of patients discharge, BLANKET INSPECTOR spoke with [facility] Broder[facility], they can transport the patient later this afternoon as of right now no set time. BLANKET INSPECTOR informed 4th floor of this. BLANKET INSPECTOR spoke with patients next of kin.
--- NOTE | 2020-02-18 10:30 | NUR ---
TOLERATED IV MEDICATION. NO C/O AT THIS TIME. CALL LIGHT IN REACH. BED ALARM ON.
--- NOTE | 2020-02-18 10:45 | NUR ---
OT NOTE Pt was seen this A.M. 1:1 for 28 minute OT session. Upon arrival pt was supine in bed. Pt identified by name and and had no complaints at this time. Pt transferred supine to sit EOB with Scout for assist with UB and use of bed rails for UE support. While sitting EOB pt donned B socks with CGA for safety, pt was initally bending at the waist and becoming SOB, educated pt on compensatory technique of bringing his leg up to his knee, pt had good carry over. Also while sitting EOB pt completed BUE towel exercises over all planes of motion for 1 X 10 to increase and restore maximum functional use in self care tasks. Pt then completed multiple sit to stand transfers from bed level with Scout and use of w/w for UE support. Challenged pt's static standing tolerance needed for increased I in self care tasks and functional transfers, pt was able to tolerate aprox 3-4 minutes at a time before sitting due to fatigue. Functional mobility was then completed to the bathroom and back with CGA and verbal prompts for walker safety. Pt was left sitting upright in the recliner with call light in hand, tray table in place, and body alarm activated for safety. Continue with rec D/C plan to SNF. VINCE Maradiaga/Joselyn
--- NOTE | 2020-02-18 11:00 | NUR ---
PHYSICAL THERAPY Patient seen this am 1:1 for therapy visit and was resting supine in bed upon therapist arrival. Patient identified by name / and reports no new c/o's at this time. OT call center assistant was present this morning for observation only as patient transfers supine to sit EOB with MOD A x 1. Patient performed several sit to stand transfers at bedside, MIN A x 1, demonstrating slow initial rise and R side lean which required v/c to correct. Patient ambulates with use of wh walker, CGA for straight line gait, demonstrating slow, cautious gait pattern and decreased stride. Patient very unsteady during all turns at MIN A and needed v/c for improved walker safety / navigation prior to return to bedside chair for total of 40'x 1. Patient remained in chair with call light, tray table and body alarm as patient attendant was present for bed linen change. Will continue per POC as tolerated, total treatment time 17 minutes. Hollis Santos, HVAC TECHNICIAN RESIDENTIAL
[2020-02-18] MEDS ORDERED: ATARAX,VISTARIL50 MG PO (11:36)
[2020-02-18] MEDS ORDERED: MAGNESIUM OXID400 MG PO (11:36)
[2020-02-18 12:00] VITALS: BP 104/76
--- NOTE | 2020-02-18 12:48 | NUR ---
REAL TIME TRADER INFORMED LEONA-CHRISTELLE KANG MAY BE HERE AROUND 2PM TO CLIN NURSE THE PATIENT, HOWEVER PER EUGENE KANG, SHE CANNOT BE FOR CERTAIN A TIME.
--- NOTE | 2020-02-18 14:03 | NUR ---
RECYCLABLE MATERIALS SORTER NOTIFIED [facility] IS ON THEIR WAY TO PICK THE PATIENT UP AT THE ER DOORS.
--- NOTE | 2020-02-18 14:16 | NUR ---
PT ESCORTED VIA WHEELCHAIR TO ER FOR DISCHARGE VIA [facility] SMALL ENGINE MECHANIC TO CUSTODIAL. REPORT GIVEN TO ÁNGEL AT [facility]. Discharge instructions reviewed with patient/family. Patient receptive and verbalizes understanding. Follow-up care arranged. Written instructions given to patient/family. HEPLOCK REMOVED 2X2 APPLIED. PACKET GIVEN TO SMALL ENGINE MECHANIC. CHRIS COHEN
--- NOTE | 2020-02-19 07:45 | NUR ---
OCCUPATIONAL THERAPY CO-SIGN I approve of the Occupational Therapy notes written above. AVEL RIVERA, OTR/L
--- NOTE | 2020-02-19 08:32 | NUR ---
PHYSICAL THERAPY CO-SIGN I approve of the Physical Therapy notes written above. Priscila Herbert PT
[2020-02-19 13:04] LABS: BONE FRACTION 20 % (12-68); INTESTINAL FRACTION 3 % (0-18); LIVER FRACTION 77 % (13-88)
== END 2020-02-18 14:16 | disposition other institution (70) | DRG 775 ==
LOC: ED 21:35 → EDHOLD 02-15 03:43 → 4E 02-15 03:43
PROVIDERS: Emergency Medicine Emergency Medical Services; Registered Nurse; Student in an Organized Health Care Education/Training Program; ADMIT Family Medicine
DX: F10.239 Alcohol dependence with withdrawal, unspecified (principal); E86.0 Dehydration; N17.0 Acute kidney failure with tubular necrosis; E87.1 Hypo-osmolality and hyponatremia; E87.2 Acidosis; E87.8 Other disorders of electrolyte and fluid balance, not elsewhere classified; E53.8 Deficiency of other specified B group vitamins; E44.0 Moderate protein-calorie malnutrition; I25.10 Atherosclerotic heart disease of native coronary artery without angina pectoris; J44.9 Chronic obstructive pulmonary disease, unspecified; M19.90 Unspecified osteoarthritis, unspecified site; F41.9 Anxiety disorder, unspecified; G47.00 Insomnia, unspecified; F10.229 Alcohol dependence with intoxication, unspecified; Y90.9 Presence of alcohol in blood, level not specified; R62.7 Adult failure to thrive; D75.89 Other specified diseases of blood and blood-forming organs; I48.0 Paroxysmal atrial fibrillation; E87.6 Hypokalemia; R73.9 Hyperglycemia, unspecified; E83.42 Hypomagnesemia; F32.9 Major depressive disorder, single episode, unspecified; K44.9 Diaphragmatic hernia without obstruction or gangrene; E03.9 Hypothyroidism, unspecified; R54 Age-related physical debility; I10 Essential (primary) hypertension; F17.210 Nicotine dependence, cigarettes, uncomplicated; Z68.26 Body mass index [BMI] 26.0-26.9, adult; Z71.6 Tobacco abuse counseling; Z91.81 History of falling; Z83.79 Family history of other diseases of the digestive system; Z83.49 Family history of other endocrine, nutritional and metabolic diseases; Z79.899 Other long term (current) drug therapy; D47.3 Essential (hemorrhagic) thrombocythemia

== ENCOUNTER 2020-07-26 00:50 | Inpatient (IN) | payer OTHER ==
[~2020-07-26] VITALS: Ht 177.8 cm; Wt 70.8 kg
[2020-07-26] VITALS (8 sets, daily range): BP systolic 99–132; BP diastolic 76–85
[~2020-07-26 00:50] MED LIST changes: +ATARAX,VISTARIL50 MG PO; +Synthroid,Lev200 MCG PO
[2020-07-26 01:04] LABS: BASO # 0.1 10*3/uL (0.0-0.1); BASO % 0.9 % (0.0-1.0); EOS # 0.2 10*3/uL (0.0-0.4); EOS % 1.8 % (1.0-4.0); HEMATOCRIT 43.8 % (42.0-52.0); LYMPH # 1.2 10*3/uL (1.3-4.4); LYMPH % 13.5 % (27.0-41.0); MEAN CELL VOLUME 97.8 fl (80.0-94.0); MEAN CORPUSCULAR HGB 32.8 pg (27.0-31.0); MEAN CORPUSCULAR HGB CONC 33.6 g/dl (33.0-37.0); MEAN PLATELET VOLUME 10.7 fl (9.6-12.3); MONO # 0.9 10*3/uL (0.1-1.0); MONO % 10.1 % (3.0-9.0); NEUT # 6.4 10*3/uL (2.3-7.9); NEUT % 73.1 % (47.0-73.0); PLATELET COUNT AUTOMATED 321 10*3/uL (130-400); RED BLOOD COUNT 4.48 10*6/uL (4.50-5.90); RED CELL DISTRI WIDTH 13.7 % (0-14.5); WHITE BLOOD COUNT 8.7 10*3/uL (4.8-10.8)
[2020-07-26 01:15] LABS: ACT PARTIAL THROMBO TIME 35.6 SECONDS (20.0-32.1); INTERNATIONAL NORM RATIO 1.5 (2.0-3.5)
[2020-07-26 01:22] LABS: ALBUMIN 2.9 gm/dl (3.1-4.5); ALKALINE PHOSPHATASE 111 U/L (45-117); BUN 14 mg/dl (7-24); CHLORIDE 102 mmol/L (98-107); CREATININE 0.96 mg/dL (0.70-1.30); POTASSIUM 4.3 mmol/L (3.5-5.1); SGOT/AST 15 IU/L (3-35); SGPT/ALT 13 U/L (12-78); SODIUM 129 mmol/L (136-145); TOTAL PROTEIN 7.8 gm/dL (6.4-8.2)
[2020-07-26 01:28] LABS: TROPONIN I < 0.015 ng/ml (<0.045)
--- NOTE | 2020-07-26 02:43 | NUR ---
SCABS NOTED TO THE UPPER RIGHT EXTREMITY NEAR THE WRIST. NOTHING OPEN AND NOTHING DRAINING AT THIS TIME. PATIENT DENIES ANYOTHER WOUNDS.
--- NOTE | 2020-07-26 03:00 | NUR ---
A 55, admitted to 5E, under the services of TIA Ortiz DO with a diagnosis of AFIB W/ RVR, HYPOMAGNESEMIA. Chief complaint is SHORTNESS OF BREATH. Patient arrived via stretcher from ER. Monitor applied. Initial assessment completed. Vital signs taken and recorded. TIA ORTIZ DO notified of admission to the unit. Orders received. See assessment for past medical history, medications and allergies. Patient and/or family oriented to unit. visitation policy reviewed. Clothing/patient valuable form completed. COLLIN ROGEL
[2020-07-26] MEDS ORDERED: BUDEPRION XL150 MG PO (03:32)
--- NOTE | 2020-07-26 03:51 | NUR ---
DR. RODRIGUEZ CONTACED IN REGARDS TO PATIENT HEART RATE BEING 99-105. OK TO HOLD CARDIZEM DRIP AT THIS TIME. ALSO INFORMED OF PATIENT BEING VIOLENT LAST VISIT D/T HISTORY OF ALCOHOLISM. REQUESTED ATIVAN FOR WITHDRAWLS. SEE NEW ORDERS.
--- NOTE | 2020-07-26 08:16 | NUR ---
DR JENKINS NOTIFIED OF NEW CONSULT FOR AFIB/RVR.
--- NOTE | 2020-07-26 21:38 | NUR ---
PATIENT C/O RIGHT RIB PAIN. RATES 04/30. MEDICATED WITH TYLENOL AT THIS TIME. WILL CONTINUE TO MONITOR.
--- NOTE | 2020-07-26 23:52 | NUR ---
PATIENT WOKEN UP TO GIVE SCHEDULED DOSE OF LIBRIUM. PATIENT VOICES NO COMPLAINTS/NEEDS AT TIME. NO TREMORS NOTED. WILL CONTINUE TO MONITOR.
[2020-07-27] VITALS: BP 98/67
--- NOTE | 2020-07-27 04:00 | NUR ---
PATIENT SLEEPING, NO SIGNS OF DISTRESS. RESPIRATIONS EASY, NON LABORED. BED IN LOWEST POSITION,CALL LIGHT WITHIN REACH. WILL CONTINUE TO MONITOR.
[2020-07-27 06:57] LABS: BASO % 0.9 % (0.0-1.0); EOS # 0.2 10*3/uL (0.0-0.4); EOS % 3.8 % (1.0-4.0); HEMATOCRIT 36.6 % (42.0-52.0); LYMPH # 0.7 10*3/uL (1.3-4.4); LYMPH % 17.5 % (27.0-41.0); MEAN CELL VOLUME 97.9 fl (80.0-94.0); MEAN CORPUSCULAR HGB 32.9 pg (27.0-31.0); MEAN CORPUSCULAR HGB CONC 33.6 g/dl (33.0-37.0); MEAN PLATELET VOLUME 11.3 fl (9.6-12.3); MONO # 0.5 10*3/uL (0.1-1.0); MONO % 12.5 % (3.0-9.0); NEUT # 2.7 10*3/uL (2.3-7.9); NEUT % 64.8 % (47.0-73.0); PLATELET COUNT AUTOMATED 237 10*3/uL (130-400); RED BLOOD COUNT 3.74 10*6/uL (4.50-5.90); RED CELL DISTRI WIDTH 13.9 % (0-14.5); WHITE BLOOD COUNT 4.2 10*3/uL (4.8-10.8)
[2020-07-27 07:05] LABS: ALBUMIN 2.3 gm/dl (3.1-4.5); ALKALINE PHOSPHATASE 80 U/L (45-117); BUN 15 mg/dl (7-24); CHLORIDE 106 mmol/L (98-107); CHOLESTEROL 92 mg/dL (<200); CREATININE 0.74 mg/dL (0.70-1.30); HDL CHOLESTEROL 26 mg/dl (40-60); LDL CHOLESTEROL 51 mg/dL (9-159); SGOT/AST 6 IU/L (3-35); SGPT/ALT 9 U/L (12-78); TOTAL PROTEIN 6.2 gm/dL (6.4-8.2); TRIGLYCERIDES 75 mg/dl (<150); VLDL CHOLESTEROL 15 mg/dL (6-40)
[2020-07-27 07:15] LABS: DIGOXIN 0.36 ng/ml (0.8-2.0); THYROID STIM HORMONE (HS) 0.017 uIU/ml (0.358-4.75)
[2020-07-27 07:32] LABS: POTASSIUM 3.3 mmol/L (3.5-5.1); SODIUM 138 mmol/L (136-145)
[2020-07-27 08:00] VITALS: BP 92/48
--- NOTE | 2020-07-27 08:43 | NUR ---
NOTIFIED LADONNA VELEZ, OF PT BLOOD PRESSURE 92/48.MARCELO SEEN PT AT BEDSIDE. ORDERS TO D/C LIBRIUM 50 MG, PT TO CONTINUE ON LIBRIUM 25 MG.
--- NOTE | 2020-07-27 11:44 | NUR ---
Multimedia Programmer in to talk to patient. Patient states lives at HOME with ALONE. There are 0 steps in the home. Physician: Harry MEHTA [facility]acy: [facility] Home health services: NONE AT THIS TIME Patient's level of ADLs: INDEPENDENT Patient has working utilities: YES DME: NONE Follow-up physician's appointment after d/c: WILL BE MADE BY HOSPITALIST NURSE DIRECTOR ON DISCHARGE Does patient want to access PORTAL?: NO Discharge plan PT LIVES AT HOME ALONE AND IS INDEPENDENT IN HIS CARE. PT STATES HE WANTS SERVICES ON DISCHARGE. PROVIDED LIST OF COMPANIES AND CHOSE [facility]. WILL GET ORDER AND SEND TO [facility]. PLAN IS TO RETURN HOME WHEN MEDICALLY STABLE. WILL CONTINUE TO FOLLOW. STATES HE WILL TAKE A CAB HOME.. YAYO MIRANDA
[2020-07-27 12:00] VITALS: BP 114/87
--- NOTE | 2020-07-27 13:55 | NUR ---
Patient requesting [facility] upon discharge. Received order, faxed referral. Notified patient will probably need 2-3 days before discharge.
--- NOTE | 2020-07-27 13:59 | NUR ---
SPEECH PATHOLOGY Clinical swallowing evaluation completed as per orders due to dysphagia. 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 Patient is ordered a regular diet and thin liquid. He reports feeling that food is sticking and coughing with intake. He was alert, oriented and able to follow commands. Oral motor exam revealed presence of natural teeth in fair condition with several missing back teeth. Lingual/labial and buccal skills were WNL in terms of strength, ROM and coordination. He was assesed with coarse solid and thin liquid. He displayed no overt difficulty with either item. As he displayed no s/s aspiration at this time, recommend he remain on present diet with use of safe swallow precautions such as upright positioning, small bites/sips and alternating liquid and solid. Patient's medical status places him at risk for aspiration therefore follow up therapy is recommended to ensure safe tolerance of po intake. Results and luke. were shared with patient and his nurse who verbalized understanding. Refer to report in [employer] for further information. Thank you for this referral. CRYSTAL JARAMILLO MSCCC-EVALUATION ANALYST
[2020-07-27 16:00] VITALS: BP 118/60
[2020-07-27 20:00] VITALS: BP 103/76
[2020-07-28] VITALS: BP 103/71
[2020-07-28 06:24] LABS: BASO % 0.4 % (0.0-1.0); EOS # 0.1 10*3/uL (0.0-0.4); EOS % 1.5 % (1.0-4.0); HEMATOCRIT 38.1 % (42.0-52.0); LYMPH # 0.6 10*3/uL (1.3-4.4); LYMPH % 8.3 % (27.0-41.0); MEAN CORPUSCULAR HGB CONC 33.3 g/dl (33.0-37.0); MEAN PLATELET VOLUME 11.4 fl (9.6-12.3); MONO # 0.6 10*3/uL (0.1-1.0); MONO % 8.3 % (3.0-9.0); NEUT # 5.8 10*3/uL (2.3-7.9); NEUT % 81.2 % (47.0-73.0); PLATELET COUNT AUTOMATED 257 10*3/uL (130-400); RED BLOOD COUNT 3.85 10*6/uL (4.50-5.90); RED CELL DISTRI WIDTH 13.8 % (0-14.5); WHITE BLOOD COUNT 7.2 10*3/uL (4.8-10.8)
[2020-07-28 06:51] LABS: ALBUMIN 2.5 gm/dl (3.1-4.5); CHLORIDE 104 mmol/L (98-107); POTASSIUM 4.1 mmol/L (3.5-5.1); SODIUM 135 mmol/L (136-145)
[2020-07-28 06:58] LABS: ALKALINE PHOSPHATASE 85 U/L (45-117); BUN 14 mg/dl (7-24); CREATININE 0.71 mg/dL (0.70-1.30); SGOT/AST 10 IU/L (3-35); SGPT/ALT 9 U/L (12-78); TOTAL PROTEIN 6.6 gm/dL (6.4-8.2)
[2020-07-28 08:00] VITALS: BP 110/74
--- NOTE | 2020-07-28 08:00 | NUR ---
MARCELO SNOW IN TO SEE PATIENT
--- NOTE | 2020-07-28 09:10 | NUR ---
SPEECH THERAPIST IN TO SEE PATIENT
--- NOTE | 2020-07-28 09:27 | NUR ---
SPEECH PATHOLOGY Patient was seen for treatment this am, conducted during breakfast meal. Patient was alert and with generalized weakness. He was able to feed himself, moving and eating very slowly. Patient consumed a variety of solid foods with no overt difficulty. He took thin liquids by straw, and was observed coughing post swallow with each sip. It was recommended that he remove straw and drink by cup. When doing this, no cough was observed. Recommend he continue with liquids by cup only. Patient noted the improvement when drinking in this manner and stated that he would avoid straws. Risk of aspiration was explained and he verbalized understanding. Continue therapy plan. CRYSTAL JARAMILLO MSCCC-CHUTE LOADER
--- NOTE | 2020-07-28 09:36 | NUR ---
SENIOR MARKETING SPECIALIST FAXED NEW REFERRAL TO [facility] FOR [facility]. WILL NEED PT/OT EVALS. PRECERT WILL BE REQUIRED.
--- NOTE | 2020-07-28 09:53 | NUR ---
BUSINESS CONTROL SPECIALIST IN TO TALK WITH PT ABOUT GOING TO A FACILITY FOR REHAB PRIOR TO GOING HOME. PT STATES HE WAS AT [facility] PREVIOUSLY AND WILL NOT GO THERE. TOLD PT THERE WER OTHER OPTIONS. EXPLAINED FACILITIES TO PT AND HE WANTS TO GO TO REHAB SUITES IF THEY WILL ACCEPT HIS INSURANCE. REFERRAL FAXED TO [facility] FOR THEM TO LOOK AT. IF ACCEPTED HE WILL NEED COVID TESTING, AND PRECERT. PT AND OT HAS BEEN ORDERED.
--- NOTE | 2020-07-28 10:25 | NUR ---
PHYSICAL THERAPY Physical Therapy evaluation completed on 5th floor with full evaluation to follow. Recommend physical therapy per plan of care and SNF upon discharge. Thank you for this referral. Low Shaver SPT Priscila Herbert PT
--- NOTE | 2020-07-28 10:25 | NUR ---
Occupational Therapy evaluation completed on 5 with full eval to follow. Precautions include fall risk,IV UE, debility, moderate complexity level 34978. Recommend OT per pOC and SNF to enable return home at max level of independence and safety. Patient was struggling at home alone prior to admission. He admits that he was eating 2x/wk because it was too difficult to cook. If he is unable to go to SNF then recommend home health SN,OT,PT, SKIDWAY WORKER and mobile meals. Thank you for this referral. Jasmin Fernandez OTR/L
--- NOTE | 2020-07-28 10:53 | NUR ---
PATIENT IS OUT OF NETWORK WITH REHAB SUITES, THERE ARE NO OUT OF NETWORK BENEFITS. PERSONAL LINES ACCOUNT EXECUTIVE IS AWARE.
[2020-07-28 12:00] VITALS: BP 100/57
[2020-07-28 16:00] VITALS: BP 108/54
[2020-07-28 20:00] VITALS: BP 105/78
--- NOTE | 2020-07-28 21:24 | NUR ---
PATIENT REFUSED SINEQUAN.
--- NOTE | 2020-07-28 23:50 | NUR ---
UP TO BATHROOM AND HEART RATE INCREASED TO 144 PATIENT BACK IN BED. HEART RATED DECREASED TO 108 BPM.
[2020-07-29] VITALS: BP 130/97
--- NOTE | 2020-07-29 02:58 | NUR ---
SLEEPING NO ACUTE DISTRESS NOTED.
--- NOTE | 2020-07-29 04:52 | NUR ---
24 HR chart check completed.
[2020-07-29 05:30] VITALS: BP 92/56
--- NOTE | 2020-07-29 07:45 | NUR ---
YARDAGE CALLER FAXED REFERRAL TO [facility]. PRECERT IS REQUIRED.
[2020-07-29 08:00] VITALS: BP 96/68
[2020-07-29 08:43] LABS: BUN 14 mg/dl (7-24); CHLORIDE 106 mmol/L (98-107); CREATININE 0.68 mg/dL (0.70-1.30); POTASSIUM 3.4 mmol/L (3.5-5.1); SODIUM 134 mmol/L (136-145)
--- NOTE | 2020-07-29 08:50 | NUR ---
OT NOTE Pt was seen this A.M. 1:1 for 15 minute OT session. Upon arrival pt was supine in bed. Pt identified by name and and had complaints of 8-9/10 L sided rib pain. Pt transferred supine to sit EOB with SBA. While sitting EOB pt donned B socks with SBA. Sit to stand completed from bed level with CGA and use of w/w for UE support. Functional mobility was then completed to the bathroom with CGA and use of w/w with constant verbal prompts to slow down due to being impulsive and increasing risk of falls, poor carry over throughout. Pt transferred on to the standard commode with CGA and off with Scout due to low surface. Functional mobility completed back to the EOB for a seated rest break. SpO2 read 95% and heart rate 87 bpm. Attempted to complete other tasks at this time and pt reported "no, I am done" and transferred sit to supine with SBA. There he was left with call light in hand, tray table in place, and bed alarm activated for safety. Continue with rec D/C plan to SNF. VINCE Maradiaga/Joselyn
--- NOTE | 2020-07-29 09:00 | NUR ---
PT RESTING IN BED/ NO DISTRESS NOTED. PT STATES THAT HES VERY TIRED AND JUST WANTS TO SLEEP WILL MONITOR
--- NOTE | 2020-07-29 09:51 | NUR ---
SPEECH PATHOLOGY Treatment was attempted this am. Patient's room was dark and he was sound asleep. Will attempt again later. CRYSTAL JARAMILLO MSCCC-MANUFACTURER AGENT
[2020-07-29 12:00] VITALS: BP 106/69
--- NOTE | 2020-07-29 13:52 | NUR ---
PHYSICAL THERAPY TREATMENT TIME: IN 08:40 AM 20 MINUTES PRESENTATION: Patient presented to therapy in supine with head of bed elevated Identified by name and on wristband Informed consent given by patient No IVs No spO2 No catheter Bed alarm on COMPLAINTS: L rib cage pain of 8/10 Dizziness at times WB STATUS: No wt bearing resrtictions ASSISTIVE DEVICE: Wh Walker TRANSFERS: Supine <> sit on EOB: SBA Sit on EOB: SBA STS from EOB: MIN A X 1 Verbal cues for hand placement TREATMENT: Patient ambulated with Wh Walker and CGA for 20' x 2 Verbal cues for upright posture and locking knees into extension RESPONSE TO TREATMENT: Patient had increased dizziness upon sitting up to EOB No LOB with gait of transfers No increased L rib pain with Gait or transfers Patient became very fatigued and requested therapy stop after gait CONCLUSION; Patient was left in supine in bed with head of bed elevated Call light within reach Bed alarm on Head of bed elevated ROXI CONTRERAS COMMERCIAL RETOUCHER
--- NOTE | 2020-07-29 14:24 | NUR ---
SPEECH PATHOLOGY Treatment was attempted again this pm. Patient was laying on his side, sleeping peacefully. His lunch tray was present but had not been touched. He did not respond when his name was called. Will attempt treatment again at a later time. CRYSTAL JARAMILLO MSCCC-DIE FINISHER FORGING
[2020-07-29 16:00] VITALS: BP 105/72
--- NOTE | 2020-07-29 19:41 | NUR ---
awakend patient. lung sounds harsh moist rhonchi in posterior patient says he is coughing up phlemb and said "this is how he felt before when he had pneumonia". After assessment patient said " good night until morning" explained to patient I had night medications to give him and that I will be returning to check on him.
[2020-07-29 20:00] VITALS: BP 111/81
[2020-07-30] VITALS: BP 105/78
--- NOTE | 2020-07-30 03:34 | NUR ---
24 HR chart check completed.
--- NOTE | 2020-07-30 07:31 | NUR ---
AWAITING ACCEPTANCE FROM [facility]. PATIENT WILL REQUIRE PRECERT.
[2020-07-30 08:00] VITALS: BP 109/90
--- NOTE | 2020-07-30 08:30 | NUR ---
[facility] HAS ACCEPTED THE PATIENT AND PRECERT HAS BEEN STARTED.
--- NOTE | 2020-07-30 10:32 | NUR ---
SPEECH THERAPY Patient seen for dysphagia treatment this AM. Patient reported he had not eaten much breakfast and was agreeable to consume small snack. Upon entry to patient's room, patient had cup of liquid at bedside with straw placed within the cup. Per previous speech therapy recommendations, patient is to avoid straws due to increased risk of penetration/aspiration with observed coughing following liqudis by straw. When discussing use of straw with patient, he recalled that he was to avoid use of straws, however stated that he had been using a straw to drink. Reiterated recommendation to avoid use of straw to increase safety of swallow. Patient consumed coarse solid with sips of thin liquid by cup. He independently took small bites and sips and displayed no difficulty throughout session. Recommend continued short term treatment as patient required cues to implent strategies, including alternating between solids and liquids and avoidance of straw. Patient re-educated on his recommended strategies with patient verbalizing agreement and understanding. As clinicain was exiting room, patient was observed removing straw from cup. Continue plan of care to ensuare safety and tolerance of recommended diet througout a meal with improved independnet use of safe and compensatory swallowing strategies. Dorina Justice MA CCC-APPRAISER LAND
--- NOTE | 2020-07-30 11:35 | NUR ---
PHYSICAL THERAPY Patient seen this am 1;1 for therapy visit and was supine in bed upon therapist arrival. Patient identified by name / and joined by OT blood and plasma laboratory assistant for observation this session. Patient reports 8/10 L rib pain and transfers supine to sit EOB, SBA x 1, demonstrating very slow movements. Patient completed sit to stand transfer CGA, then ambulated without AD, 20' x 2 to bathroom, SBA x 1, demonstrating slow, antalgic gait pattern. Patient also tolerated eyes open / closed balance ex x 10 seconds without LOB and returned to EOB sit. Patient remained in bed with call light, tray table and telephone Will continue per POC as tolerated, total treatment time 16 minutes. Hollis Santos, SUPERINTENDENT GAS DISTRIBUTION
--- NOTE | 2020-07-30 11:57 | NUR ---
PRECERT HAS BEEN OBTAINED. PATIENT CAN BE DISCHARGED TO [facility] IF MEDICALLY STABLE. ACCOUNT REPRESENTATIVE NOTIFIED RN HOSPITALIST COORDINATOR KERMIT.
[2020-07-30 12:00] VITALS: BP 107/88
--- NOTE | 2020-07-30 12:00 | NUR ---
OT NOTE Pt was seen this A.M. 1:1 for 15 minute OT session. Upon arrival pt was supine in bed. Pt identified by name and and had complaints of 8/10 L sided rib pain. Pt transferred sit to supine with SBA. While seated EOB pt donned B socks with supervision. Sit to stand completed from bed level with SBA followed by functional mobility to the bathroom with SBA. There she transferred on/off standard commode with SBA. Functional mobility completed back to the EOB with SBA. There he transferred sit to supine with SBA and was left with call light in hand, tray table in place, and bed alarm activated for safety. Continue with rec D/C plan to SNF. VINCE Maradiaga/Joselyn
--- NOTE | 2020-07-30 12:04 | NUR ---
NOTIFIED DR FRANCIS THAT WE WERE UNABLE TO REGAIN IV ACCESS.MULTIPLE ATTEMPTS MADE TO REGAIN IV ACCESS BY MULTIPLE RN'S. SURGERY UNAVAILABLE TODAY FOR MIDLINE PLACEMENT. DR FRANCIS AWARE AND STATED "HE WOULD FIGURE IT OUT".
[2020-07-30] MEDS ORDERED: PREDNISONE20 M1 PO (12:36)
[2020-07-30] MEDS ORDERED: MUCUS RELIEF600 MG PO (12:36)
[2020-07-30] MEDS ORDERED: METOPROLOL TART50 M1 PO (12:36)
--- NOTE | 2020-07-30 12:37 | NUR ---
PLANNING COORDINATOR COMPLETED HENS.
--- NOTE | 2020-07-30 13:29 | NUR ---
CHARGING BOARD OPERATOR NOTIFIED OF PATIENT DISCHARGE. CHARGING BOARD OPERATOR SPOKE WITH LEONA GOLDEN WHO WAS SPEAKING WITH RN. CHARGING BOARD OPERATOR ARRANGED FOR [facility] TO TRANSPORT THIS PATIENT AT 2:30PM. CHARGING BOARD OPERATOR NOTIFIED , [facility], AND PATIENTS MOTHER LAZARO OF DISCHARGE. CHARGING BOARD OPERATOR FAXED DEMOGRAPHICS TO [facility] AND DISCHARGE ORDERS TO [facility].
--- NOTE | 2020-07-30 15:30 | NUR ---
Discharge instructions reviewed with patient/family. Patient receptive and verbalizes understanding. Follow-up care arranged. Written instructions given to patient/family. SAMANTHA PARR
--- NOTE | 2020-08-02 16:00 | NUR ---
OCCUPATIONAL THERAPY CO-SIGN I approve of the Occupational Therapy notes written above. MEGHAN ARTHUR OTR/Joselyn
== END 2020-07-30 15:30 | disposition other institution (70) | DRG 426 ==
LOC: ED 00:50 → 5E 02:10 → EDHOLD 02:10 → 5E 02:27
PROVIDERS: Hospitalist; Internal Medicine; Registered Nurse; ADMIT Internal Medicine; ATTEND Internal Medicine
DX: E87.1 Hypo-osmolality and hyponatremia (principal); I48.0 Paroxysmal atrial fibrillation; F10.239 Alcohol dependence with withdrawal, unspecified; E83.42 Hypomagnesemia; E86.0 Dehydration; J44.9 Chronic obstructive pulmonary disease, unspecified; K76.0 Fatty (change of) liver, not elsewhere classified; E44.0 Moderate protein-calorie malnutrition; R73.9 Hyperglycemia, unspecified; R00.0 Tachycardia, unspecified; F32.9 Major depressive disorder, single episode, unspecified; E03.9 Hypothyroidism, unspecified; I10 Essential (primary) hypertension; I25.10 Atherosclerotic heart disease of native coronary artery without angina pectoris; G40.909 Epilepsy, unspecified, not intractable, without status epilepticus; Z20.828 Contact with and (suspected) exposure to other viral communicable diseases; R13.10 Dysphagia, unspecified; M19.90 Unspecified osteoarthritis, unspecified site; F41.9 Anxiety disorder, unspecified; K52.9 Noninfective gastroenteritis and colitis, unspecified; K44.9 Diaphragmatic hernia without obstruction or gangrene; F17.210 Nicotine dependence, cigarettes, uncomplicated; Z83.49 Family history of other endocrine, nutritional and metabolic diseases; Z82.49 Family history of ischemic heart disease and other diseases of the circulatory system; Z83.3 Family history of diabetes mellitus; Z83.79 Family history of other diseases of the digestive system; Z85.89 Personal history of malignant neoplasm of other organs and systems; Z85.818 Personal history of malignant neoplasm of other sites of lip, oral cavity, and pharynx; Z79.899 Other long term (current) drug therapy; Z79.01 Long term (current) use of anticoagulants; Z68.22 Body mass index [BMI] 22.0-22.9, adult

== ENCOUNTER 2020-10-03 13:55 | Inpatient (IN) | payer OTHER ==
[2020-10-03] VITALS (7 sets, daily range): BP systolic 98–128; BP diastolic 48–90
[~2020-10-03] VITALS: Ht 172.7 cm; Wt 62.7 kg
[~2020-10-03 13:55] MED LIST changes: +BUDEPRION XL150 MG PO; +MUCUS RELIEF600 MG PO; +PREDNISONE20 M1 PO
[2020-10-03 14:57] LABS: HEMATOCRIT 45.4 % (42.0-52.0); MEAN CELL VOLUME 105.8 fl (80.0-94.0); MEAN CORPUSCULAR HGB 34.5 pg (27.0-31.0); MEAN CORPUSCULAR HGB CONC 32.6 g/dl (33.0-37.0); MEAN PLATELET VOLUME 12.7 fl (9.6-12.3); NUCLEATED RED BLOOD CELL 0.3 % (0.0-0.0); PLATELET COUNT AUTOMATED 169 10*3/uL (130-400); RED BLOOD COUNT 4.29 10*6/uL (4.50-5.90); RED CELL DISTRI WIDTH 18.2 % (0-14.5)
[2020-10-03 15:07] LABS: INTERNATIONAL NORM RATIO 1.2 (2.0-3.5)
[2020-10-03 15:10] LABS: ABG BASE EXCESS 2.2 mmol/L (-2.0-2.0); ARTERIAL BLOOD GAS PH 7.515 (7.35-7.45)
[2020-10-03 15:14] LABS: ALBUMIN 2.2 gm/dl (3.1-4.5); ALKALINE PHOSPHATASE 101 U/L (45-117); BUN 13 mg/dl (7-24); CHLORIDE 102 mmol/L (98-107); CPK 95 U/L (39-308); CREATININE 0.72 mg/dL (0.70-1.30); POTASSIUM 2.5 mmol/L (3.5-5.1); SGOT/AST 69 IU/L (3-35); SGPT/ALT 33 U/L (12-78); SODIUM 140 mmol/L (136-145); TOTAL PROTEIN 7.3 gm/dL (6.4-8.2)
[2020-10-03 15:16] LABS: PLATELET SUFFICIENCY NORMAL (NORMAL); TOTAL CELLS COUNTED 100 #CELLS
[2020-10-03 15:16] LABS: TROPONIN I < 0.015 ng/ml (<0.045)
[2020-10-03 15:17] LABS: POLYCHROMASIA SLIGHT
--- NOTE | 2020-10-03 17:00 | NUR ---
PT BODY WASHED WITH CLEAN SHEETS AND GOWN, HAIR WASHED. NO BEDBUGS SEEN AT THIS TIME. PT TOLERATED. DRIED STOOL NOTED TO BUTTOCK AND LEGS.
[2020-10-03 18:20] LABS: BILIRUBIN 1+ (Negative); BLOOD 1+ (Negative); CLARITY Clear (Clear); COLOR Dark Yellow (Yellow); GLUCOSE Negative (Negative); KETONE Trace (Negative); LEUKO ESTERASE Trace (Negative); NITRITE Negative (Negative); PH 5.5 (4.5-8.0)
[2020-10-03 18:30] LABS: EPITHELIAL CELLS 0-2
[2020-10-03 18:52] LABS: ABG BASE EXCESS 1.6 mmol/L (-2.0-2.0); ARTERIAL BLOOD GAS PH 7.496 (7.35-7.45)
--- NOTE | 2020-10-03 19:24 | NUR ---
REPORT RECIEVED FROM My JUSTIN RN.
[2020-10-04] VITALS (26 sets, daily range): BP systolic 80–123; BP diastolic 48–89
--- NOTE | 2020-10-04 02:13 | NUR ---
THE PATIENT IS RESTING WITH HIS EYES CLOSED. VITALS WERE UPDATED.
--- NOTE | 2020-10-04 04:14 | NUR ---
THE PATIENT IS RESTING ON THE BED WITH HIS EYES CLOSED. VITALS WERE UPDATED.
[2020-10-04 05:27] LABS: ALBUMIN 1.6 gm/dl (3.1-4.5); ALKALINE PHOSPHATASE 71 U/L (45-117); BUN 13 mg/dl (7-24); CHLORIDE 112 mmol/L (98-107); CREATININE 0.57 mg/dL (0.70-1.30); LDH 211 U/L (87-241); POTASSIUM 2.9 mmol/L (3.5-5.1); SGOT/AST 48 IU/L (3-35); SGPT/ALT 24 U/L (12-78); SODIUM 146 mmol/L (136-145); TOTAL PROTEIN 5.6 gm/dL (6.4-8.2)
[2020-10-04 06:33] LABS: HEMATOCRIT 36.3 % (42.0-52.0); MEAN CELL VOLUME 106.1 fl (80.0-94.0); MEAN CORPUSCULAR HGB 34.2 pg (27.0-31.0); MEAN CORPUSCULAR HGB CONC 32.2 g/dl (33.0-37.0); MEAN PLATELET VOLUME 12.9 fl (9.6-12.3); PLATELET COUNT AUTOMATED 172 10*3/uL (130-400); RED BLOOD COUNT 3.42 10*6/uL (4.50-5.90); RED CELL DISTRI WIDTH 18.4 % (0-14.5)
[2020-10-04 07:30] LABS: PLATELET SUFFICIENCY NORMAL (NORMAL); POLYCHROMASIA SLIGHT; ROULEAUX SLIGHT; TOTAL CELLS COUNTED 100 #CELLS
--- NOTE | 2020-10-04 07:43 | NUR ---
PT RESTING IN BED. HR IN THE 140S. CARDIZEM IS AT 5MG AND NOW BBUMPED TO 1OMG. PT IS RESTING IN BED. ATIVAN GIVEN.
--- NOTE | 2020-10-04 08:13 | NUR ---
DR. MADRID CONTACTED. DID NOT LET ME GIVE HIM A REPORT STATED THAT HE WOULD BE IN TO SEE THE PATIENT.
--- NOTE | 2020-10-04 10:32 | NUR ---
PT WAS GIVEN LOVENOX, POTASSIUM AND MAG. PT HAS BREAKFAST TRAY IN ROOM BUT STATES HE IS NOT HUNGRY RIGHT NOW. TRAY IS BESIDE BED. CALL LIGHT WITHIN REACH. PT DENIES ANY NEEDS AT THIS TIME. STATES HE IS JUST TIRED.
--- NOTE | 2020-10-04 13:20 | NUR ---
CHARGE NURSE I DID QUESTION THAT PT'S PULSE REMAINS 160-190 SINCE ARRIVAL YESTERDAY. FIRST CARDIZEM BOTTLE IS NOW FOUND TO HAVE NOT BEEN ACTIVATED ON IV LINE AND THE SALINE DILUTE JUST NOW COMPLETES ITS 5CC/HR INFUSION. I DID CALL DR MENDOZA'S LINE AND SPOKE WITH THE RESIDENT WHO ANSWERED AND INFORMED THEM OF THIS ISSUE AND HE STATES HE WILL NOW INPUT NEW [id number].
--- NOTE | 2020-10-04 13:41 | NUR ---
CARDIZEM HUNG AT 10ML/HR.
--- NOTE | 2020-10-04 14:36 | NUR ---
LINENS HAVE BEEN CHANGED. PT GIVEN SIP OF WATER. PT TOLERATED WELL. PT DID NOT WISH TO EAT LUNCH. RESTING IN BED. CALL LIGHT WITHIN REACH. WILL CONTINUE TO MONITOR.
--- NOTE | 2020-10-04 16:04 | NUR ---
DR MADRID INSTRUCTED TO GIVE 10MG LOPRESSOR IV, EVERY 10 MINUTES WITH BP CHECKS. UP TO 4 DOSES.
[2020-10-05] VITALS (16 sets, daily range): BP systolic 84–118; BP diastolic 0–82
[2020-10-05 05:54] LABS: ALBUMIN 1.6 gm/dl (3.1-4.5); BUN 13 mg/dl (7-24); CHLORIDE 113 mmol/L (98-107); CREATININE 0.38 mg/dL (0.70-1.30); POTASSIUM 3.4 mmol/L (3.5-5.1); SGOT/AST 46 IU/L (3-35); SGPT/ALT 25 U/L (12-78); SODIUM 145 mmol/L (136-145)
[2020-10-05 05:57] LABS: ALKALINE PHOSPHATASE 66 U/L (45-117); LDH 285 U/L (87-241); TOTAL PROTEIN 5.6 gm/dL (6.4-8.2)
[2020-10-05 06:02] LABS: CPK 43 U/L (39-308)
[2020-10-05 06:27] LABS: HEMATOCRIT 38.4 % (42.0-52.0); MEAN CELL VOLUME 106.4 fl (80.0-94.0); MEAN CORPUSCULAR HGB 34.6 pg (27.0-31.0); MEAN CORPUSCULAR HGB CONC 32.6 g/dl (33.0-37.0); MEAN PLATELET VOLUME 12.9 fl (9.6-12.3); PLATELET COUNT AUTOMATED 185 10*3/uL (130-400); RED BLOOD COUNT 3.61 10*6/uL (4.50-5.90); RED CELL DISTRI WIDTH 18.5 % (0-14.5)
--- NOTE | 2020-10-05 07:01 | NUR ---
notified PHARMACY THAT PT'S SYNTHROID MED IS NOT ABLE TO BE LOCATED IN THIS ER. THEY ARE TO SEND IT DOWN---FUNMI BOWEN RN
--- NOTE | 2020-10-05 07:25 | NUR ---
SPOKE WITH DR TEAGUE BY [facility] TOLD TO REDUCE CARIZEM BY 5MCG PT RATE AT 70 APPEARS TO BE SINUS B/P AT 115/59
[2020-10-05 07:50] LABS: BURR CELLS FEW; PLATELET SUFFICIENCY NORMAL (NORMAL); ROULEAUX SLIGHT; TOTAL CELLS COUNTED 100 #CELLS
--- NOTE | 2020-10-05 07:59 | NUR ---
PT REFUSED LAB DRAW
--- NOTE | 2020-10-05 08:13 | NUR ---
PT BACK IN A-FIB RATE VARIES AROUND 118 CARIZEM DRIP LEFT AT 15MCG
--- NOTE | 2020-10-05 08:17 | NUR ---
PT IN BED IRRATABLE REFUSED LAB DRAW PT ALSO REFUSED TO KEEP PULSE OX MONITOR ON PT DOES NOT ANSWER QUESTIONS PT "MUTTERS AND SWEARS" MAKING A FIST TO ANY STIMULI
[2020-10-05 11:19] LABS: FREE T4 1.14 ng/dl (0.76-1.46)
[2020-10-05 11:26] LABS: THYROID STIM HORMONE (HS) 12.2 uIU/ml (0.358-4.75)
--- NOTE | 2020-10-05 11:45 | NUR ---
CARDIZEM GTT STOPPED. BP 88/50. SKIN WARM AND DRY. COLOR PALE. MIKALA SMITH,RN
--- NOTE | 2020-10-05 12:19 | NUR ---
DR. PUCKETT MADE AWARE OF CONSULT. DR. PUCKETT AT BEDSIDE TO SEE PATIENT
--- NOTE | 2020-10-05 12:20 | NUR ---
DR MENDOZA CALLED [facility]O: BP 82/41. ORDERS REC'D TO INCREASE IV FLUIDS TO 125/HR. REMAINS ON 100% NON-REBREATER PO 93%. PT REMAINS AGIGATED AT TIMES. EASILY AROUSED. ATTEMPTS TO PLACE 16 OR 14 FR CARMEN CATHETER UNSUCESSFUL. UNABLE TO ADVANCE COMPLETELY DUE TO RESISTANCE. MIKALA SMITHRN
--- NOTE | 2020-10-05 12:30 | NUR ---
IV FLUIDS INCREASED TO 125/CC/HR ORDERED. MIKALA SMITH RN
--- NOTE | 2020-10-05 13:15 | NUR ---
REFUSED ABG, AGGITATED, CURSING
--- NOTE | 2020-10-05 13:19 | NUR ---
CT CHEST SCAN DONE. MIKALA SMITH RN
--- NOTE | 2020-10-05 14:10 | NUR ---
DR MENDOZA NOTIFIED OF CONTINUED HYPOTENSION AND UNDATED ON PATIENT CONDITION. ORDERS REC'D. MIKALA SMITH RN
--- NOTE | 2020-10-05 15:07 | NUR ---
FLUID BOLUS COMPLETE. BP 100/63 AT PRESENT. CONTINUES ON 100% NON REBREATHER MIKALA SMITH RN
--- NOTE | 2020-10-05 20:10 | NUR ---
PT REMAINS TACHYCARDIC. CARDIZEM DRIP REMAINS STOPPED. B/P IS 95/75. HOSPITALIST MADE AWARE OF PATIENTS CONDITION. 94% ON 100% NON-REBREATHER. WILL NOTIFY CARDIOLOGY.
--- NOTE | 2020-10-05 20:34 | NUR ---
SPOKE WITH DR. MADRID ON THE PHONE. DR. MADRID AWARE OF PT CONDITION. IV DIGOXIN TO BE ADMINISTERED PER ORDER. SEE ORDERS AND EMAR.
--- NOTE | 2020-10-05 23:15 | NUR ---
REPORT RECEIVED FROM COLLEEN CAMPBELL.
[2020-10-06] VITALS (9 sets, daily range): BP systolic 82–105; BP diastolic 00–85
--- NOTE | 2020-10-06 04:44 | NUR ---
PT REPOSITIONED TO LEFT SIDE. PT MOVED UP IN BED. PT CONDITION THE SAME. PT ADMINISTERED DIGOXIN.
[2020-10-06 05:30] LABS: ALBUMIN 1.6 gm/dl (3.1-4.5); ALKALINE PHOSPHATASE 77 U/L (45-117); BUN 14 mg/dl (7-24); CHLORIDE 116 mmol/L (98-107); CPK 39 U/L (39-308); CREATININE 0.38 mg/dL (0.70-1.30); LDH 258 U/L (87-241); POTASSIUM 3.8 mmol/L (3.5-5.1); SGOT/AST 52 IU/L (3-35); SGPT/ALT 35 U/L (12-78); SODIUM 146 mmol/L (136-145)
[2020-10-06 06:17] LABS: HEMATOCRIT 43.2 % (42.0-52.0); MEAN CELL VOLUME 109.1 fl (80.0-94.0); MEAN CORPUSCULAR HGB 34.3 pg (27.0-31.0); MEAN CORPUSCULAR HGB CONC 31.5 g/dl (33.0-37.0); MEAN PLATELET VOLUME 13.1 fl (9.6-12.3); NUCLEATED RED BLOOD CELL 0.2 % (0.0-0.0); PLATELET COUNT AUTOMATED 226 10*3/uL (130-400); RED BLOOD COUNT 3.96 10*6/uL (4.50-5.90); RED CELL DISTRI WIDTH 19.3 % (0-14.5)
--- NOTE | 2020-10-06 06:17 | NUR ---
PT HAS BEEN MOVED FROM ROOM 12 TO ROOM 7 AND MOVED TO A HOSPITAL BED. CALLED DR. ASHTON WHO REPORTS THE PT'S HR NEEDS TO DECREASE IN ORDER FOR BLOOD PRESSURE TO IMPROVE. PT IN AFIB, HR 140S. BP 90/71. PT APPEARS TO BE MOTTLING.
[2020-10-06 07:06] LABS: ATYPICAL LYMPHS 1 % (0-0); BURR CELLS FEW; PLATELET SUFFICIENCY NORMAL (NORMAL); POLYCHROMASIA SLIGHT; TARGET CELLS FEW; TOTAL CELLS COUNTED 100 #CELLS
[2020-10-06 07:15] LABS: ARTERIAL BLOOD GAS PH 7.467 (7.35-7.45)
--- NOTE | 2020-10-06 07:15 | NUR ---
REPORT FROM JAYME MACIAS AT THIS TIME.
--- NOTE | 2020-10-06 07:15 | NUR ---
Patient refuses assessment of skin at this time.
--- NOTE | 2020-10-06 07:54 | NUR ---
CONTACTED DR OLSON/TAMIKA ABOUT PATIENT. NOTIFIED THEM THAT PATIENT IS RESTLESS, BP IS 82/OO. PATIENT STILL CURRENTLY APPEARS TO BE IN A FIB WITH RVR WITH A RATE OF ABOUT 140-150. PATIENT HAS BEEN GIVEN MULTIPLE MEDS INCLUDING LOPRESSOR, DIGOXIN, AND CARDIZEM. CARDIZEM WAS DC'D DUE TO LOW BP ON A PRIOR SHIFT. CONTACTED THESE DOCTORS IN REGARDS TO STARTING PATIENT ON A PRESSER OR IV FLUIDS SO WE CAN RESTART THE CARDIZEM POSSIBLY AND THEY STATED THAT THEY ARE WAITING FOR THE PATIENTS COVID SWAB RESULTS TO COME BACK.
--- NOTE | 2020-10-06 08:50 | NUR ---
PATIENT LEVOPHED STARTED AT 12MCG/MIN. CURRENTLY WAITING FOR FAMILY TO ARRIVE TO SEE PATIENT TO DECIDE ON TO INTUBATE OR IF THEY WOULD LIKE TO MAKE HOSPICE PER FAMILY.
--- NOTE | 2020-10-06 08:55 | NUR ---
PATIENTS PO MEDS ARE DOCUMENTED NOT GIVEN AT THIS TIME DUE TO PATIENT NOT BEING ABLE TO SWALLOW FROM PREVIOUS NURSES SHIFT REPORT.
--- NOTE | 2020-10-06 10:22 | NUR ---
FAMILY HERE AT THIS TIME TO SEE PATIENT. AVANI CORDOBA STATES OK FOR PATIENTS FAMILY TO COME BACK AND BE WITH THEM.
--- NOTE | 2020-10-06 10:31 | NUR ---
CURRENTLY WAITING FOR HOSPICE TO CALL FOR PATIENT.
--- NOTE | 2020-10-06 10:46 | NUR ---
Received order for hospice/[facility]. Contacted VictorM anuel and faxed order & clinicals. Victor Manuel will be calling contact and get back to me with a time.
--- NOTE | 2020-10-06 11:18 | NUR ---
I TOOK CHAIRS AND TISSUES INTO THE ROOM FOR THE FAMILY.
--- NOTE | 2020-10-06 11:43 | NUR ---
[facility] Ori sandoval and ER staff evaluated and discussed patients condition. They have found that this patient is not appropriate for [facility] at this time.
--- NOTE | 2020-10-06 11:48 | NUR ---
[facility] HERE AT THIS TIME AND SPEAKING TO PATIENTS FAMILY IN FAMILY ROOM.
--- NOTE | 2020-10-06 11:54 | NUR ---
Patient is now qualifying for in patient [facility] hospice services and will be admitted under [facility].
--- NOTE | 2020-10-06 11:56 | NUR ---
PATIENT FAMILY AND DR MENDOZA IN SPEAKING TO [facility] AT THIS TIME. FAMILY HAS DECIDED TO GO WITH HOSPICE FULLY.
--- NOTE | 2020-10-06 15:30 | NUR ---
PATIENT TAKEN TO FLOOR AT THIS TIME. PATIENT BEDSIDE GIVEN TO MP MACIAS.
== END 2020-10-06 12:36 | disposition hospice, home (50) | DRG 720 ==
LOC: ED 13:55 → EDHOLD 18:07
PROVIDERS: Emergency Medicine; Family Medicine; Hospitalist; Internal Medicine; ADMIT Internal Medicine; ATTEND Internal Medicine
PROC: 5A09357 Assistance with Respiratory Ventilation, Less than 24 Consecutive Hours, Continuous Positive Airway Pressure (ICD-10-PCS; principal; 2020-10-06)
DX: A41.9 Sepsis, unspecified organism (principal); U07.1 COVID-19; J18.9 Pneumonia, unspecified organism; F10.231 Alcohol dependence with withdrawal delirium; E87.0 Hyperosmolality and hypernatremia; F32.9 Major depressive disorder, single episode, unspecified; E43 Unspecified severe protein-calorie malnutrition; M19.90 Unspecified osteoarthritis, unspecified site; R65.20 Severe sepsis without septic shock; E86.0 Dehydration; R29.6 Repeated falls; E87.6 Hypokalemia; E83.42 Hypomagnesemia; J96.01 Acute respiratory failure with hypoxia; D53.9 Nutritional anemia, unspecified; R79.89 Other specified abnormal findings of blood chemistry; E83.52 Hypercalcemia; E83.39 Other disorders of phosphorus metabolism; E03.9 Hypothyroidism, unspecified; I10 Essential (primary) hypertension; I25.10 Atherosclerotic heart disease of native coronary artery without angina pectoris; F17.210 Nicotine dependence, cigarettes, uncomplicated; F41.9 Anxiety disorder, unspecified; I47.1 Supraventricular tachycardia; E78.5 Hyperlipidemia, unspecified; G40.909 Epilepsy, unspecified, not intractable, without status epilepticus; I48.21 Permanent atrial fibrillation; M81.0 Age-related osteoporosis without current pathological fracture; M62.84 Sarcopenia; J44.0 Chronic obstructive pulmonary disease with (acute) lower respiratory infection; J94.8 Other specified pleural conditions; Z79.01 Long term (current) use of anticoagulants; Z91.81 History of falling; Z83.79 Family history of other diseases of the digestive system; Z82.49 Family history of ischemic heart disease and other diseases of the circulatory system; Z83.49 Family history of other endocrine, nutritional and metabolic diseases; Z83.3 Family history of diabetes mellitus; Z79.899 Other long term (current) drug therapy; Z86.73 Personal history of transient ischemic attack (TIA), and cerebral infarction without residual deficits; Z68.21 Body mass index [BMI] 21.0-21.9, adult

== ENCOUNTER 2020-10-06 12:42 | Inpatient (IN) | payer OTHER ==
[~2020-10-06] VITALS: Ht 172.7 cm; Wt 63.5 kg
--- NOTE | 2020-10-06 13:45 | NUR ---
PATIENT RECOMMENDATIONS HAVE BEEN GIVEN TO THIS NURSE. COPIES MADE AND PLACED WITH PATIENT CHART. ALSO COPY GIVEN TO DR LUNDBERG.
[2020-10-06 15:48] VITALS: BP 197/124
--- NOTE | 2020-10-06 16:00 | NUR ---
Time: 1600 A 55 year old MALE admitted to 4E under services of TIA NARANJO DO. Pt. arrived via bed from ED Chief complaint: .ETOH WITH INOCENTE MAYBERRY NOW [facility] PT. SAMANTHA PARR
--- NOTE | 2020-10-06 18:32 | NUR ---
FAMILY CURRENTLY AT BEDSIDE WITH PT WITH NURSING JUNIOR MARKETING ASSOCIATE,SHEREE ROGEL'S, PERMISSION.
--- NOTE | 2020-10-06 19:30 | NUR ---
ASSUMED CARE OF PATIENT. PATIENT IS LETHARGIC WITH EASY AND REGULAR RESPERS. FAMILY PRESENT AT BEDSIDE AND REFUSING VITALS AT THIS TIME. BED IS LOW, LOCKED, ALARMED, AND CALL LIGHT IS WITHIN REACH. WILL CONTINUE TO MONITOR, SEE INTERVENTIONS.
--- NOTE | 2020-10-06 20:00 | NUR ---
CALL PLACED TO [facility] IN REGARDS TO FLUIDS TO KVO. NURSE RETURNED CALL AND SAID "DO WHATEVER YOU HAVE TO DO TO KEEP THE VEIN OPEN SO HE CAN GET THE MEDICINE." SEE NEW ORDERS.
--- NOTE | 2020-10-06 21:05 | NUR ---
PRN ATIVAN GIVEN AT THIS TIME FOR INCREASED AGITATION. PATIENT CHECKED FOR INCONTINENCE AND ATTEMPTED TO REPOSITION. WILL CONTINUE TO MONITOR.
--- NOTE | 2020-10-06 21:40 | NUR ---
PRN ATIVAN EFFECTIVE, CALL LIGHT IS WITHIN REACH.
--- NOTE | 2020-10-06 21:56 | NUR ---
[facility] CALLED IN REGARDS TO BOTHER CONTACTING. PATIENT ASSESSED. SURVEILLANCE ANALYST PUMP INFUSING PER ORDER AND NORMAL SALINE INFUSING AT KVO RATE. WILL CONTINUE TO MONITOR.
--- NOTE | 2020-10-07 01:49 | NUR ---
PRN ATIVAN GIVEN AT THIS TIME FOR INCREASED AGITATION. PATIENT CHECKED FOR INCONTINENCE AND ATTEMPTED TO REPOSITION. WILL CONTINUE TO MONITOR.
--- NOTE | 2020-10-07 02:30 | NUR ---
PRN ATIVAN EFFECTIVE, CALL LIGHT IS WITHIN REACH.
[2020-10-07 08:18] VITALS: BP 82/55
--- NOTE | 2020-10-07 08:25 | NUR ---
UPON ASSESSMENT, PATIENT APPEARS TO BE COMFORTABLE AND RELAXED. UNRESPONSIVE TO VERBAL STIMULI. ON 100% NONREBREATHER MASK, POX 98%. PT REPOSITIONED FOR COMFORT AND FAMILY MEMBERS ENCOURAGED TO CALL FOR ASSIST IF HE APPEARS TO BE IN ANY FORM OF DISTRESS. INSTRUCTED THEM ON SIGHS/SYMPTOMS TO LOOK FOR.
[2020-10-07 16:00] VITALS: BP 76/54
--- NOTE | 2020-10-07 16:21 | NUR ---
RESPIRATIONS DOWN TO 5/MIN. PT APPEARS COMFORTABLE. PT REMAINS ON NONREBREATHER WITH IV MORPHINE INFUSING AT 5MG/HR. FAMILY AT BEDSIDE.
[2020-10-07 20:00] VITALS: BP 89/54
--- NOTE | 2020-10-07 21:40 | NUR ---
PT SEEN AND ASSESSED. FAMILY AT BEDSIDE. PT FAMILY EDUCATED ON VERBALIZING NEEDS. PT FAMILY OFFERED REFRESHMENTS. PT FAMILY VERBALIZES NO OTHER NEEDS AT THIS TIME.
[2020-10-08] VITALS: BP 84/48
--- NOTE | 2020-10-08 03:54 | NUR ---
24 HR chart check completed.
[2020-10-08 08:00] VITALS: BP 85/64
--- NOTE | 2020-10-08 08:08 | NUR ---
FAMILY AT BEDSIDE. NO VOICED COMPLAINTS. PT COMFORTABLE UPON ASSESSMENT WITH IV MORPHINE INFUSING AT 5MG/ML ORDERED. RESPERATIONS 3 BPM. OFFERED REFRESHMENTS TRAY TO FAMILY, DECLINED.
[2020-10-08 12:00] VITALS: BP 81/51
--- NOTE | 2020-10-08 14:11 | NUR ---
CHECKED IN ON PT, NO SXS OF DISTRESS. 5 BPM. MORPHINE DRIP SEEMS TO BE EFFECTIVE. NO COMPLAINTS FROM FAMILY. CONTINUES TO DECLINE REFRESHMENTS/SNACKS.
[2020-10-08 20:00] VITALS: BP 86/64
--- NOTE | 2020-10-08 21:30 | NUR ---
PT SEEN AND ASSESSED. PT RESTING QUIETLY, FAMILY AT BEDSIDE. NO CURRENT C/O AT THIS TIME. MORPHINE DRIP EFFECTIVE FOR PAIN MANAGMENT.
[2020-10-09] VITALS: BP 85/52
--- NOTE | 2020-10-09 01:22 | NUR ---
24 HR chart check completed.
--- NOTE | 2020-10-09 08:17 | NUR ---
RESTING CONFORTABLY, 5MG/HR MORPHINE INFUSING WITH EASE. FAMILY AT BEDSIDE. NO COMPLAINTS VOICED. CALL LIGHT IN REACH. MORPHINE REMAINS EFFECTIVE. RESPERATIONS 8 PER MIN.
[2020-10-09 09:00] VITALS: BP 78/53
[2020-10-09 12:00] VITALS: BP 82/58
[2020-10-09 16:00] VITALS: BP 73/48
--- NOTE | 2020-10-09 16:09 | NUR ---
RESTING COMFORTABLY. NO SXS OF DISTRESS NOTED. MORPHINE DRIP EFFECTIVE AT 5MG/HR. CALL LIGHT IN REACH. FAMILY AT BEDSIDE. QUESTIONS ABOUT PROCESS ANSWERED.
[2020-10-09 20:00] VITALS: BP 73/49
[2020-10-10] VITALS: BP 85/60
--- NOTE | 2020-10-10 01:06 | NUR ---
NUMBER FOUR MORPHINE BAG STARTED. PATIENT UNRESPONSE. NON REBREATHER 15L. MOIST BREATH SOUNDS, RESPIRATIONS 24. FAMILY MEMBERS AT BEDSIDE, EDUCATION ABOUT END OF LIFE CARE.
--- NOTE | 2020-10-10 05:54 | NUR ---
PATIENT UNRESPONSIVE. SHALLOW RESPIRATIONS, EIGHT PER MINUTES. RADIAL PULSE STRONG AND SLOW. INCREASED MOLDING TO UPPER BILATERAL LEGS. INCREASED GENERALIZED PALENESS.
--- NOTE | 2020-10-10 07:09 | NUR ---
PATIENT AT 654 VERIFIED BY 2 RNS. SHIFT DIRECTOR NOTIFIED AT 0655, DR. FRANCIS CONTACTED AT 0656, [facility] CALLED AT 0708, SPOKE WITH FELISA BODY RELEASED REFERENCE #[id number].
--- NOTE | 2020-10-10 08:35 | NUR ---
HOME HERE TO TRANSPORT BODY.
== END 2020-10-10 06:55 | disposition expired | DRG 871 ==
LOC: 4E 12:42 → EDHOLD 12:42 → 4E 13:59
PROVIDERS: ADMIT Internal Medicine; ATTEND Internal Medicine
DX: A41.9 Sepsis, unspecified organism (principal); U07.1 COVID-19; J12.89 Other viral pneumonia; E43 Unspecified severe protein-calorie malnutrition; J96.01 Acute respiratory failure with hypoxia; F10.231 Alcohol dependence with withdrawal delirium; E87.0 Hyperosmolality and hypernatremia; E87.2 Acidosis; R65.20 Severe sepsis without septic shock; Z51.5 Encounter for palliative care; I48.91 Unspecified atrial fibrillation; F10.21 Alcohol dependence, in remission; K76.0 Fatty (change of) liver, not elsewhere classified; I25.10 Atherosclerotic heart disease of native coronary artery without angina pectoris; E03.9 Hypothyroidism, unspecified; M19.90 Unspecified osteoarthritis, unspecified site; R29.6 Repeated falls; F41.9 Anxiety disorder, unspecified; E87.6 Hypokalemia; E83.42 Hypomagnesemia; Z20.828 Contact with and (suspected) exposure to other viral communicable diseases; D53.9 Nutritional anemia, unspecified; E83.52 Hypercalcemia; J94.9 Pleural condition, unspecified; I10 Essential (primary) hypertension; J44.9 Chronic obstructive pulmonary disease, unspecified